=== PATIENT | male | born 1945 | race American Indian/Alaskan Native ===

== ENCOUNTER 2018-08-12 18:26 | Inpatient (IN) | payer MEDICARE, MEDICAID ==
[2018-08-12 19:20] LABS: HEMOGLOBIN 10.6 g/dL (12.0-18.0); MEAN CORPUSCULAR HEMOGLOBIN 21.2 pg (27.0-31.0); MEAN CORPUSCULAR HGB CONC 32.7 g/dL (33.0-37.0); MEAN PLATELET VOLUME 9.4 fL (7.2-11.7); RED CELL DISTRIBUTION WIDTH 18.7 % (11.5-14.5)
[2018-08-12 19:37] LABS: MEAN CELL VOLUME 64.9 fL (80.0-94.0)
[2018-08-12 19:38] LABS: WHITE BLOOD COUNT 19.3 K/uL (4.8-10.8)
--- NOTE | 2018-08-12 19:47 | C.PDOC ---
History Of Present Illness 73 year old male presents to the ED for evaluation of vomiting and diarrhea for one week. Patient also reports feeling winded for the past 1.5 weeks. He states he gets tired and needs to catch his breath even with walking small distances. For the past 6 days, patient has been experiencing weakness to his bilateral lower legs, having a hard time lifting them. Patient states his last episodes of vomiting and diarrhea were earlier this week and one week ago, respectively. He states his last meal was one week ago. PS "IM TAKING CANCER MEDICINE BUT I DON'T KNOW MY MEDS. DR LEVIN TAKES CARE OF ME" PS DOESNT KNOW SOURCE OF CANCER Additional history limited secondary to patient being a poor historian. Time Seen by Provider: 08/12/18 18:34 History Per: Patient History/Exam Limitations: no limitations Onset/Duration Of Symptoms: Days Current Symptoms Are (Timing): Still Present Past Medical History Reviewed: Historical Data, Nursing Documentation, Vital Signs Vital Signs: Last Vital Signs Temp 97.8 F 08/12/18 18:44 Pulse 95 H 08/12/18 18:44 Resp 18 08/12/18 18:44 BP 130/64 08/12/18 18:44 Pulse Ox 97 08/12/18 18:44 - Medical History PMH: Back Problems, Gastritis Surgical History: No Surg Hx Family History: States: Unknown Family Hx - Social History Hx Tobacco Use: No Hx Alcohol Use: No Hx Substance Use: No - Immunization History Hx Tetanus Toxoid Vaccination: No Hx Influenza Vaccination: No Hx Pneumococcal Vaccination: No Review Of Systems Respiratory: Positive for: Other (feeling winded ) Gastrointestinal: Positive for: Vomiting, Diarrhea Neurological: Positive for: Weakness (bilateral lower extremities ) Physical Exam - Physical Exam Appears: Non-toxic, No Acute Distress Skin: Normal Color, Warm, Dry Head: Atraumatic, Normacephalic Eye(s): bilateral: Normal Inspection Oral Mucosa: Dry Neck: Supple Chest: Symmetrical, No Deformity, No Tenderness Cardiovascular: Rhythm Regular, No Murmur Respiratory: Normal Breath Sounds, No Rales, No Rhonchi, No Wheezing Gastrointestinal/Abdominal: Soft, No Tenderness, No Guarding, No Rebound Extremity: Normal ROM, Capillary Refill (less than 2 seconds ) Neurological/Psych: Normal Motor (bilateral upper extremities ), Normal Sensation (bilateral upper extremities ), Other (alert and oriented x2. see NIH ) ED Course And Treatment - Laboratory Results Result Diagrams: 08/12/18 19:18 08/12/18 21:00 ECG: Interpreted By Me, Viewed By Me ECG Rhythm: Sinus Rhythm Rate From EC O2 Sat by Pulse Oximetry: 97 (on RA) Pulse Ox Interpretation: Normal - Radiology CXR: Interpreted by Me CXR Interpretation: Yes: No Acute Disease Progress Note: Bloodwork, urinalysis, CXR, EKG ordered and reviewed. Zosyn IV given. NIHSS Stroke Scale - Date/Time Evaluation Performed Date Performed: 08/12/18 Time Performed: 19:49 When Was NIHSS Performed: Baseline - How Severe is the Stroke Level of Consciousness: 0=Alert LOC to Questions: 0=Both comments correct LOC to commands: 0=Obeys both correctly Best Gaze: 0=Normal Visual: 0=No visual loss Facial: 0=Normal Motor Arm - Left: 0=No drift Motor Arm - Right: 0=No drift Motor Leg - Left: 2=Falls before 5 sec Motor Leg - Right: 2=Falls before 5 sec Limb Ataxia: 0=Absent Sensory: 0=Normal Best Language: 0=No aphasia Dysarthia: 0=Normal articulation Extinction & Inattention (Neglect): 0=Normal, no object Score: 4 Progress - Re-Evaluation Re-evaluation Note: 08/12/18 21:16 NO RECENT BUN/CREAT ON RECORD. HO CHRONIC KIDNEY DISEASE PER PRIOR RECORD VISITS. DEFER IVF BOLUS PER SEPSIS PROTOCOL PENDING BMP 08/12/18 21:57 S/P IVF, NO URINE OUTPUT SP STRAIGHT CATH. BLADDER SCAN <100 CC. PT APPEARS COMFORTABLE NARD 08/12/18 22:19 D/W DR FLEMING FOR ICU WILL EVAL IN ER 08/12/18 22:31 D/W Deni REILLY C/F PMD WILL ADMIT 08/12/18 22:34 D/W EX , STATES PT W HO PROSTATE CA, HEME/ONC DR LEVIN 08/12/18 22:53 ACCEPTS FOR ICU - Data Reviewed Data Reviewed: Lab, Diagnostic imaging, EKG, Old records rTPA Inclusion/Exclusion - Refusal of Treatment Patient Refused Treatment: No - Inclusion Criteria for Altepase Patient is 18 years or Older: Yes The Clinical Diagnosis of Ischemic Stroke That is Causing a Potentially Disabling Neurological Deficit: Yes Time of Onset is Well Established to be Less Than 270 Minute Before Treatment Would Begin: No Risk/Benefit Discussed With Patient/Family Member Present: No - Exclusion Criteria for Altepase Uncontrolled Hypertension at Time of Treatment (Systolic BP above 185 or Diastolic BP above 110 mmHg): No - Warning to TPA With Conditions Following Conditions Weighed Against Anticipated Benefit: Yes Condition: Care Team Unable to Determine Eligibilty Disposition Counseled Patient/Family Regarding: Studies Performed, Diagnosis - Disposition Disposition: HOSPITALIZED Disposition Time: 22:59 Condition: SERIOUS - POA Present On Arrival: None - Clinical Impression Clinical Impression: Acute renal failure, Altered mental state - Scribe Statement The provider has reviewed the documentation as recorded by the Scribe (Patti Reilly) Provider Attestation: All medical record entries made by the Scribe were at my direction and personally dictated by me. I have reviewed the chart and agree that the record accurately reflects my personal performance of the history, physical exam, medical decision making, and the department course for this patient. I have also personally directed, reviewed, and agree with the discharge instructions and disposition.
[2018-08-12 21:03] LABS: VENOUS BLOOD GAS BASE EXCESS -18.7 mmol/L (0.0-2.0); VENOUS BLOOD GAS PCO2 22 mmHg (40-60); VENOUS BLOOD GAS PO2 68 mm/Hg (30-55); VENOUS BLOOD PH 7.17 (7.32-7.43)
[2018-08-12 21:17] LABS: INR 1.4; PROTHROMBIN TIME 15.4 SECONDS (9.7-12.2)
[2018-08-12] MEDS ORDERED: Piperacillin/Tazobact 3.375 gm 100 ML IV STA (21:20)
[2018-08-12 21:25] LABS: ALBUMIN 3.5 g/dL (3.5-5.0); CALCIUM 7.2 mg/dl (8.6-10.4)
[2018-08-12] MEDS ORDERED: Piperacillin/Tazobact 3.375 gm 100 ML IVPB ONE (21:27)
--- NOTE | 2018-08-12 23:10 | CP.CCUPN ---
CCU Subjective - Physician Review Subjective (Free Text): 08/13/18 07:00 The Patient was seen and examined at the bedside, Medical records reviewed, and management issues were discussed and formulated with the house staff. Events reviewed 73 Years old Male with PMHx of Back Problems, Gastritis, Chronic Kidney Disease and Prostate cancer Who presents to the ED with complaint of vomiting and diarrhea for one week., Also has bilateral lower legs weakness, he denies any other complaints No fever/chills, no CP, SOB, DELANEY, cough In the ER his labs significant for acute kidney injury with hyperkalemia and profound metabolic acidosis. He received 1L normal saline, started on Bicarb drip and scheduled for Head CT scan. Pt is poor historian but denies using any nephrotoxic medications, including NSAIDS or diuretics. His PO intake is adequate. He denies nausea, vomiting, diarrhea, decreased urine output, hesitancy or urinary retention. CCU Objective - Vital Signs / Intake & Output Vital Signs (Last 4 hours): Vital Signs Temp Resp BP Pulse Ox 08/12/18 22:59 97 08/12/18 22:37 98 F 93 H 131/63 99 Intake and Output (Last 8hrs): Intake & Output 08/12/18 08/12/18 08/13/18 14:59 22:59 06:59 Weight 160 lb - Physical Exam Physical Exam Limitations: Positive for: Clinical Condition Head: Positive for: Atraumatic, Normocephalic Pupils: Positive for: PERRL Extroacular Muscles: Positive for: EOMI Conjunctiva: Positive for: Normal Mouth: Positive for: Dry Neck: Positive for: Normal Range of Motion, Trachea Midline. Negative for: Meningeal Signs, MIDLINE TENDERNESS, Paraspinal Tenderness, JVD, Lymphadenopathy, Bruit, Other Respiratory/Chest: Positive for: Clear to Auscultation, Good Air Exchange, Respiratory Distress. Negative for: Accessory Muscle Use Cardiovascular: Positive for: Regular Rate and Rhythm, Normal S1, S2, Peripheal Pulses Present. Negative for: Murmurs, Irregular Rhythm, Tachycardic, Bradycardic Abdomen: Positive for: Normal Bowel Sounds. Negative for: Tenderness, Distention, Peritoneal Signs Neurological: Positive for: GCS=15, CN II-XII Intact, Speech Normal, Motor Func Grossly Intact, Normal Sensory Function Psychiatric: Positive for: Alert, Oriented x 3 - Patient Studies Lab Studies: Lab Studies 08/12/18 08/12/18 08/12/18 Range/Units 21:00 20:59 20:55 WBC (4.8-10.8) K/uL RBC (4.40-5.90) Mil/uL Hgb (12.0-18.0) g/dL Hct (35.0-51.0) % MCV (80.0-94.0) fL MCH (27.0-31.0) pg MCHC (33.0-37.0) g/dL RDW (11.5-14.5) % Plt Count (130-400) K/uL MPV (7.2-11.7) fL PT 15.4 H (9.7-12.2) SECONDS INR 1.4 APTT 33 (21-34) SECONDS D-Dimer, Quantitative 2062 H (0-243) ng/mlDDU pO2 68 H (30-55) mm/Hg VBG pH 7.17 L* (7.32-7.43) VBG pCO2 22 L (40-60) mmHg VBG HCO3 10.1 mmol/L VBG Total CO2 8.7 L (22-28) mmol/L VBG O2 Sat (Calc) 93.1 H (40-65) % VBG Base Excess -18.7 L (0.0-2.0) mmol/L VBG Potassium 4.2 (3.6-5.2) mmol/L Sodium 135 134.0 (132-148) mmol/l Chloride 97 L 103.0 (98-107) mmol/L Glucose 120 H (75-110) mg/dl Lactate 2.2 H (0.7-2.1) mmol/L FiO2 21.0 % Crit Value Called To Dr maria Crit Value Called By [facility] Crit Value Read Back Y Blood Gas Notified Time 2102 Potassium 5.3 H (3.6-5.2) mmol/L Carbon Dioxide 7 L* (22-30) mmol/L Anion Gap 36 H (10-20) BUN 257 H* (9-20) mg/dL Creatinine 16.0 H* (0.8-1.5) mg/dL Est GFR ( Amer) 4 Est GFR (Non-Af Amer) 3 Random Glucose 150 H (75-110) mg/dL Calcium 7.2 L (8.6-10.4) mg/dl Phosphorus 12.9 H (2.5-4.5) mg/dL Magnesium 3.2 H (1.6-2.3) mg/dL Total Bilirubin 3.4 H (0.2-1.3) mg/dL AST 54 (17-59) U/L ALT 71 (21-72) U/L Alkaline Phosphatase 215 H (38-126) U/L NT-Pro-B Natriuret Pep 6410 H (0-900) pg/mL Total Protein 7.0 (6.3-8.3) g/dL Albumin 3.5 (3.5-5.0) g/dL Globulin 3.5 (2.2-3.9) gm/dL Albumin/Globulin Ratio 1.0 (1.0-2.1) Lipase 966 H (23-300) U/L Venous Blood Potassium 4.2 (3.6-5.2) mmol/L 08/12/18 Range/Units 19:18 WBC 19.3 H (4.8-10.8) K/uL RBC 5.00 (4.40-5.90) Mil/uL Hgb 10.6 L (12.0-18.0) g/dL Hct 32.4 L (35.0-51.0) % MCV 64.9 L (80.0-94.0) fL MCH 21.2 L (27.0-31.0) pg MCHC 32.7 L (33.0-37.0) g/dL RDW 18.7 H (11.5-14.5) % Plt Count 360 (130-400) K/uL MPV 9.4 (7.2-11.7) fL PT (9.7-12.2) SECONDS INR APTT (21-34) SECONDS D-Dimer, Quantitative (0-243) ng/mlDDU pO2 (30-55) mm/Hg VBG pH (7.32-7.43) VBG pCO2 (40-60) mmHg VBG HCO3 mmol/L VBG Total CO2 (22-28) mmol/L VBG O2 Sat (Calc) (40-65) % VBG Base Excess (0.0-2.0) mmol/L VBG Potassium (3.6-5.2) mmol/L Sodium (132-148) mmol/l Chloride (98-107) mmol/L Glucose (75-110) mg/dl Lactate (0.7-2.1) mmol/L FiO2 % Crit Value Called To Crit Value Called By Crit Value Read Back Blood Gas Notified Time Potassium (3.6-5.2) mmol/L Carbon Dioxide (22-30) mmol/L Anion Gap (10-20) BUN (9-20) mg/dL Creatinine (0.8-1.5) mg/dL Est GFR ( Amer) Est GFR (Non-Af Amer) Random Glucose (75-110) mg/dL Calcium (8.6-10.4) mg/dl Phosphorus (2.5-4.5) mg/dL Magnesium (1.6-2.3) mg/dL Total Bilirubin (0.2-1.3) mg/dL AST (17-59) U/L ALT (21-72) U/L Alkaline Phosphatase (38-126) U/L NT-Pro-B Natriuret Pep (0-900) pg/mL Total Protein (6.3-8.3) g/dL Albumin (3.5-5.0) g/dL Globulin (2.2-3.9) gm/dL Albumin/Globulin Ratio (1.0-2.1) Lipase (23-300) U/L Venous Blood Potassium (3.6-5.2) mmol/L Laboratory Results - last 24 hr 08/12/18 08/12/18 08/12/18 19:18 20:55 20:59 WBC 19.3 H RBC 5.00 Hgb 10.6 L Hct 32.4 L MCV 64.9 L MCH 21.2 L MCHC 32.7 L RDW 18.7 H Plt Count 360 MPV 9.4 PT 15.4 H INR 1.4 APTT 33 D-Dimer, Quantitative 2062 H pO2 68 H VBG pH 7.17 L* VBG pCO2 22 L VBG HCO3 10.1 VBG Total CO2 8.7 L VBG O2 Sat (Calc) 93.1 H VBG Base Excess -18.7 L VBG Potassium 4.2 Sodium 134.0 Chloride 103.0 Glucose 120 H Lactate 2.2 H FiO2 21.0 Crit Value Called To Dr maria Crit Value Called By [facility] Crit Value Read Back Y Blood Gas Notified Time 2102 Potassium Carbon Dioxide Anion Gap BUN Creatinine Est GFR ( Amer) Est GFR (Non-Af Amer) Random Glucose Calcium Phosphorus Magnesium Total Bilirubin AST ALT Alkaline Phosphatase NT-Pro-B Natriuret Pep Total Protein Albumin Globulin Albumin/Globulin Ratio Lipase Venous Blood Potassium 4.2 08/12/18 21:00 WBC RBC Hgb Hct MCV MCH MCHC RDW Plt Count MPV PT INR APTT D-Dimer, Quantitative pO2 VBG pH VBG pCO2 VBG HCO3 VBG Total CO2 VBG O2 Sat (Calc) VBG Base Excess VBG Potassium Sodium 135 Chloride 97 L Glucose Lactate FiO2 Crit Value Called To Crit Value Called By Crit Value Read Back Blood Gas Notified Time Potassium 5.3 H Carbon Dioxide 7 L* Anion Gap 36 H BUN 257 H* Creatinine 16.0 H* Est GFR ( Amer) 4 Est GFR (Non-Af Amer) 3 Random Glucose 150 H Calcium 7.2 L Phosphorus 12.9 H Magnesium 3.2 H Total Bilirubin 3.4 H AST 54 ALT 71 Alkaline Phosphatase 215 H NT-Pro-B Natriuret Pep 6410 H Total Protein 7.0 Albumin 3.5 Globulin 3.5 Albumin/Globulin Ratio 1.0 Lipase 966 H Venous Blood Potassium EKG/Cardiology Studies: Cardiology / EKG Studies 08/12/18 19:56 ELECTROCARDIOGRAM Stat Comment: Mode Of Transportation: BED Reason For Exam: [facility] 08/12/18 21:09 EKG [ELECTROCARDIOGRAM] Stat Comment: Mode Of Transportation: Reason For Exam: weakness Review of Systems - Cardiovascular Cardiovascular: absent: As Per HPI, Acrocyanosis, Chest Pain, Chest Pain at Rest, Chest Pain with Activity, Claudication, Diaphoresis, Dyspnea, Dyspnea on Exertion, Edema, Irregular Heart Rhythm, Pain Radiating to Arm/Neck/Jaw, Leg Edema, Leg Ulcers, Lightheadedness, Orthopnea, Palpitations, Paroxysmal Nocturnal Dyspnea, Pedal Edema, Radiating Pain, Rapid Heart Rate, Slow Heart Rate, Syncope, Other, UNREMARKABLE - Respiratory Respiratory: absent: As Per HPI, Cough, Dyspnea, Hemoptysis, Dyspnea on Exertion, Wheezing, Snoring, Stridor, Pain on Inspiration, Chest Congestion, Excessive Mucous Production, Change in Mucous Color, Pain with Coughing, Other, UNREMARKABLE Critical Care Progress Note - Extremities/Vascular Does the Patient have a Central Venous Catheter?: No Does the Patient need a Central Venous Catheter?: No Does the Patient have a Goss Catheter?: No Does the Patient need a Goss Catheter?: No Assessment/Plan (1) Acute renal failure Current Visit: Yes Status: Acute (2) Metabolic acidosis Current Visit: Yes Status: Acute Priority: High (3) Altered mental state Current Visit: Yes Status: Acute (4) Anemia Current Visit: Yes Status: Acute Priority: Medium (5) 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 Volume depletions, Physical examination consistent with hypovolemia and Dehydration Metabolic acidosis (anion gap) Hyperkalemia, EKG without peaked t-waves. AMS, likely from uremia, follow head CT scan Admit to the ICU Nephrology consult Frequent labs, HD if metabolic derangement not improving IVF hydration Bicard drip Off all nephrotoxic medications /NSAIDs Renally adjust medication dose Monitor Input/Output, daily weights Monitor renal function with basic metabolic panel Avoid fleets enema/magnesium based meds BP and Glycemic control GI/DVT PPX
[2018-08-12] MEDS ORDERED: DEXTROSE 5% IV SCH (23:15)
[2018-08-12] MEDS ORDERED: WATER IV SCH (23:15)
[2018-08-12] MEDS ORDERED: SODIUM BICARBONATE IV SCH (23:15)
[2018-08-13] MEDS: Sodium Bicarbonate 8.4% 150 MEQ in Dextrose 5% In Water 1,000 ML IV SCH ×2 (00:45→13:24)
[2018-08-13 05:27] LABS: URINE BACTERIA MOD (<OCC); URINE BILIRUBIN NEGATIVE (NEGATIVE); URINE BLOOD 2+ (NEGATIVE); URINE CLARITY Turbid (Clear); URINE COLOR Amber (YELLOW); URINE GLUCOSE (UA) NORMAL (Normal); URINE LEUKOCYTE ESTERASE 3+ Leu/uL (Negative); URINE PROTEIN 2+ mg/dL (NEGATIVE); URINE UROBILINOGEN NORMAL mg/dL (0.2-1.0); WBC CLUMPS MANY /hpf
[2018-08-13 06:22] LABS: MEAN CORPUSCULAR HEMOGLOBIN 21.5 pg (27.0-31.0); MEAN CORPUSCULAR HGB CONC 33.4 g/dL (33.0-37.0)
[2018-08-13 06:42] LABS: HEMOGLOBIN 9.7 g/dL (12.0-18.0); MEAN CELL VOLUME 64.3 fL (80.0-94.0); MEAN PLATELET VOLUME 10.1 fL (7.2-11.7); PLATELET COUNT 367 K/uL (130-400); RBC 4.52 Mil/uL (4.40-5.90); RED CELL DISTRIBUTION WIDTH 18.4 % (11.5-14.5); WHITE BLOOD COUNT 13.4 K/uL (4.8-10.8)
[2018-08-13 07:21] LABS: ALB/GLOB RATIO 0.9 (1.0-2.1); ALBUMIN 3.1 g/dL (3.5-5.0); CALCIUM 6.7 mg/dl (8.6-10.4)
--- NOTE | 2018-08-13 07:47 | CT ---
Date of service: 08/12/2018 PROCEDURE: CT HEAD WITHOUT CONTRAST. HISTORY: Altered mental status COMPARISON: None available. TECHNIQUE: Axial computed tomography images were obtained through the head/brain without intravenous contrast. Radiation dose: Total exam DLP = 1248.67 mGy-cm. This CT exam was performed using one or more of the following dose reduction techniques: Automated exposure control, adjustment of the mA and/or kV according to patient size, and/or use of iterative reconstruction technique. FINDINGS: HEMORRHAGE: No intracranial hemorrhage. BRAIN: No mass effect or edema. Scattered focal lucencies in the subcortical and periventricular white matter suggestive for chronic microvascular ischemic change. Punctate bilateral basal ganglia lacunar infarcts. VENTRICLES: Prominent. CALVARIUM: Unremarkable. PARANASAL SINUSES: Unremarkable as visualized. No significant inflammatory changes. MASTOID AIR CELLS: Unremarkable as visualized. No inflammatory changes. OTHER FINDINGS: None. IMPRESSION: Chronic microvascular ischemic changes. If symptoms persists, consider correlation with MRI. These findings were preliminarily reported at 12:33 a.m. on 08/13/[address] Mila Billy from [facility].
--- NOTE | 2018-08-13 08:20 | RAD ---
HISTORY: AMS COMPARISON: Chest x-ray performed 08/28/14 TECHNIQUE: Chest, one view. FINDINGS: LUNGS: No focal consolidation. Please note that chest x-ray has limited sensitivity for the detection of pulmonary masses. PLEURA: No significant pleural effusion identified. No definite pneumothorax . CARDIOVASCULAR: Heart size appears within normal limits. Atherosclerotic calcification present. OSSEOUS STRUCTURES: Degenerative changes. Chronic right 6th rib fracture deformity. VISUALIZED UPPER ABDOMEN: Unremarkable. OTHER FINDINGS: None. IMPRESSION: No focal consolidation identified.
--- NOTE | 2018-08-13 09:02 | CP.CCUPN ---
<Carisa De La Garza - Last Filed: 08/13/18 18:32> CCU Subjective - Physician Review Events Since Last Encounter (Free Text): 08/13/18 09:01 Patient was on bicarb drip over night. BUN and Creatinine remain elevated (no change from admission). Subjective (Free Text): 08/13/18 09:00 Patient was seen and examined this morning. He states he is feeling better. He still seems confused but is able to state where he is and why. He continues to have diarrhea. Patient's BUN and creatinine have not improved, and he will require dialysis today. Critical Care Time Spent (in minutes): 35 CCU Objective - Vital Signs / Intake & Output Vital Signs (Last 4 hours): Vital Signs Temp Pulse Resp BP Pulse Ox 08/13/18 08:20 89 20 99 08/13/18 08:12 96 H 19 125/62 98 08/13/18 08:10 104 H 20 100 08/13/18 08:00 98.6 F 94 H 19 98 08/13/18 07:50 90 21 99 08/13/18 07:40 93 H 22 98 08/13/18 07:30 90 24 98 08/13/18 07:20 87 20 98 08/13/18 07:11 87 17 141/61 100 08/13/18 07:10 86 18 98 08/13/18 07:00 89 20 98 Intake and Output (Last 8hrs): Intake & Output 08/12/18 08/13/18 08/13/18 22:59 06:59 14:59 Intake Total 500 310 Output Total 150 100 Balance 350 210 Weight 160 lb 152 lb 1.6 oz Intake: Intake, IV Amount 500 310 Left Forearm 500 300 Right Hand 10 Output: Urine 150 100 Urine, Voided 150 100 Other: # Voids Urine, Voided 1 - Physical Exam Head: Positive for: Atraumatic, Normocephalic Pupils: Positive for: PERRL Extroacular Muscles: Positive for: EOMI Conjunctiva: Positive for: Normal Mouth: Positive for: Dry Neck: Positive for: Normal Range of Motion, Trachea Midline. Negative for: Meningeal Signs, MIDLINE TENDERNESS, Paraspinal Tenderness, JVD, Lymphadenopathy, Bruit, Other Respiratory/Chest: Positive for: Clear to Auscultation, Good Air Exchange, Respiratory Distress. Negative for: Accessory Muscle Use Cardiovascular: Positive for: Regular Rate and Rhythm, Normal S1, S2, Peripheal Pulses Present. Negative for: Murmurs, Irregular Rhythm, Tachycardic, Bradycardic Abdomen: Positive for: Normal Bowel Sounds. Negative for: Tenderness, Distention, Peritoneal Signs Neurological: Positive for: GCS=15, CN II-XII Intact, Speech Normal, Motor Func Grossly Intact, Normal Sensory Function Psychiatric: Positive for: Alert, Oriented x 3 - Medications Active Medications: Active Medications Generic Name Dose Route Start Last Admin Trade Name Freq PRN Reason Stop Dose Admin Heparin Sodium (Porcine) 5,000 units 08/13/18 00:45 08/13/18 06:36 Heparin SC 5,000 units Q8 ALEC Administration Sodium Bicarbonate 150 meq/ 1,150 mls @ 100 mls/hr 08/13/18 00:45 08/13/18 00:45 Dextrose IV 100 mls/hr .[id number] ALEC Administration Pantoprazole Sodium 40 mg 08/13/18 10:00 Protonix Inj IVP DAILY ALEC - Patient Studies Lab Studies: Lab Studies 08/13/18 08/13/18 08/13/18 Range/Units 06:12 06:12 06:12 WBC 13.4 H (4.8-10.8) K/uL RBC 4.52 (4.40-5.90) Mil/uL Hgb 9.7 L (12.0-18.0) g/dL Hct 29.1 L (35.0-51.0) % MCV 64.3 L (80.0-94.0) fL MCH 21.5 L (27.0-31.0) pg MCHC 33.4 (33.0-37.0) g/dL RDW 18.4 H (11.5-14.5) % Plt Count 367 (130-400) K/uL MPV 10.1 (7.2-11.7) fL PT (9.7-12.2) SECONDS INR APTT 36 H (21-34) SECONDS D-Dimer, Quantitative (0-243) ng/mlDDU pO2 (30-55) mm/Hg VBG pH (7.32-7.43) VBG pCO2 (40-60) mmHg VBG HCO3 mmol/L VBG Total CO2 (22-28) mmol/L VBG O2 Sat (Calc) (40-65) % VBG Base Excess (0.0-2.0) mmol/L VBG Potassium (3.6-5.2) mmol/L Sodium 134 (132-148) mmol/l Chloride 96 L (98-107) mmol/L Glucose (75-110) mg/dl Lactate (0.7-2.1) mmol/L FiO2 % Crit Value Called To Crit Value Called By Crit Value Read Back Blood Gas Notified Time Potassium 5.1 (3.6-5.2) mmol/L Carbon Dioxide 10 L* D (22-30) mmol/L Anion Gap 33 H (10-20) BUN 266 H* (9-20) mg/dL Creatinine 16.1 H* (0.8-1.5) mg/dL Est GFR ( Amer) 4 Est GFR (Non-Af Amer) 3 Random Glucose 143 H (75-110) mg/dL Calcium 6.7 L (8.6-10.4) mg/dl Phosphorus 12.3 H (2.5-4.5) mg/dL Magnesium 3.3 H (1.6-2.3) mg/dL Total Bilirubin 3.4 H (0.2-1.3) mg/dL AST 59 (17-59) U/L ALT 69 (21-72) U/L Alkaline Phosphatase 211 H (38-126) U/L NT-Pro-B Natriuret Pep (0-900) pg/mL Total Protein 6.5 (6.3-8.3) g/dL Albumin 3.1 L (3.5-5.0) g/dL Globulin 3.4 (2.2-3.9) gm/dL Albumin/Globulin Ratio 0.9 L (1.0-2.1) Lipase (23-300) U/L Venous Blood Potassium (3.6-5.2) mmol/L Urine Color (YELLOW) Urine Clarity (Clear) Urine pH (5.0-8.0) Ur Specific Orange (1.003-1.030) Urine Protein (NEGATIVE) mg/dL Urine Glucose (UA) (Normal) mg/dL Urine Ketones (NEGATIVE) mg/dL Urine Blood (NEGATIVE) Urine Nitrate (NEGATIVE) Urine Bilirubin (NEGATIVE) Urine Urobilinogen (0.2-1.0) mg/dL Ur Leukocyte Esterase (Negative) Milla/uL Urine WBC (Auto) (0-5) /hpf Urine RBC (Auto) (0-3) /hpf Urine WBC Clumps (Auto) (NONE) /hpf Urine Bacteria (<OCC) Urine Yeast (Budding) (NEGATIVE) /hpf 08/13/18 08/12/18 08/12/18 Range/Units 05:18 21:00 20:59 WBC (4.8-10.8) K/uL RBC (4.40-5.90) Mil/uL Hgb (12.0-18.0) g/dL Hct (35.0-51.0) % MCV (80.0-94.0) fL MCH (27.0-31.0) pg MCHC (33.0-37.0) g/dL RDW (11.5-14.5) % Plt Count (130-400) K/uL MPV (7.2-11.7) fL PT 15.4 H (9.7-12.2) SECONDS INR 1.4 APTT 33 (21-34) SECONDS D-Dimer, Quantitative 2062 H (0-243) ng/mlDDU pO2 (30-55) mm/Hg VBG pH (7.32-7.43) VBG pCO2 (40-60) mmHg VBG HCO3 mmol/L VBG Total CO2 (22-28) mmol/L VBG O2 Sat (Calc) (40-65) % VBG Base Excess (0.0-2.0) mmol/L VBG Potassium (3.6-5.2) mmol/L Sodium 135 (132-148) mmol/l Chloride 97 L (98-107) mmol/L Glucose (75-110) mg/dl Lactate (0.7-2.1) mmol/L FiO2 % Crit Value Called To Crit Value Called By Crit Value Read Back Blood Gas Notified Time Potassium 5.3 H (3.6-5.2) mmol/L Carbon Dioxide 7 L* (22-30) mmol/L Anion Gap 36 H (10-20) BUN 257 H* (9-20) mg/dL Creatinine 16.0 H* (0.8-1.5) mg/dL Est GFR ( Amer) 4 Est GFR (Non-Af Amer) 3 Random Glucose 150 H (75-110) mg/dL Calcium 7.2 L (8.6-10.4) mg/dl Phosphorus 12.9 H (2.5-4.5) mg/dL Magnesium 3.2 H (1.6-2.3) mg/dL Total Bilirubin 3.4 H (0.2-1.3) mg/dL AST 54 (17-59) U/L ALT 71 (21-72) U/L Alkaline Phosphatase 215 H (38-126) U/L NT-Pro-B Natriuret Pep 6410 H (0-900) pg/mL Total Protein 7.0 (6.3-8.3) g/dL Albumin 3.5 (3.5-5.0) g/dL Globulin 3.5 (2.2-3.9) gm/dL Albumin/Globulin Ratio 1.0 (1.0-2.1) Lipase 966 H (23-300) U/L Venous Blood Potassium (3.6-5.2) mmol/L Urine Color Antoinette (YELLOW) Urine Clarity Turbid (Clear) Urine pH 5.0 (5.0-8.0) Ur Specific Orange 1.013 (1.003-1.030) Urine Protein 2+ H (NEGATIVE) mg/dL Urine Glucose (UA) Normal (Normal) mg/dL Urine Ketones Negative (NEGATIVE) mg/dL Urine Blood 2+ H (NEGATIVE) Urine Nitrate Negative (NEGATIVE) Urine Bilirubin Negative (NEGATIVE) Urine Urobilinogen Normal (0.2-1.0) mg/dL Ur Leukocyte Esterase 3+ H (Negative) Milla/uL Urine WBC (Auto) 2419 H (0-5) /hpf Urine RBC (Auto) 24 H (0-3) /hpf Urine WBC Clumps (Auto) Many H (NONE) /hpf Urine Bacteria Mod H (<OCC) Urine Yeast (Budding) Few H (NEGATIVE) /hpf 08/12/18 08/12/18 Range/Units 20:55 19:18 WBC 19.3 H (4.8-10.8) K/uL RBC 5.00 (4.40-5.90) Mil/uL Hgb 10.6 L (12.0-18.0) g/dL Hct 32.4 L (35.0-51.0) % MCV 64.9 L (80.0-94.0) fL MCH 21.2 L (27.0-31.0) pg MCHC 32.7 L (33.0-37.0) g/dL RDW 18.7 H (11.5-14.5) % Plt Count 360 (130-400) K/uL MPV 9.4 (7.2-11.7) fL PT (9.7-12.2) SECONDS INR APTT (21-34) SECONDS D-Dimer, Quantitative (0-243) ng/mlDDU pO2 68 H (30-55) mm/Hg VBG pH 7.17 L* (7.32-7.43) VBG pCO2 22 L (40-60) mmHg VBG HCO3 10.1 mmol/L VBG Total CO2 8.7 L (22-28) mmol/L VBG O2 Sat (Calc) 93.1 H (40-65) % VBG Base Excess -18.7 L (0.0-2.0) mmol/L VBG Potassium 4.2 (3.6-5.2) mmol/L Sodium 134.0 (132-148) mmol/l Chloride 103.0 (98-107) mmol/L Glucose 120 H (75-110) mg/dl Lactate 2.2 H (0.7-2.1) mmol/L FiO2 21.0 % Crit Value Called To Dr maria Crit Value Called By [facility] Crit Value Read Back Y Blood Gas Notified Time 2102 Potassium (3.6-5.2) mmol/L Carbon Dioxide (22-30) mmol/L Anion Gap (10-20) BUN (9-20) mg/dL Creatinine (0.8-1.5) mg/dL Est GFR ( Amer) Est GFR (Non-Af Amer) Random Glucose (75-110) mg/dL Calcium (8.6-10.4) mg/dl Phosphorus (2.5-4.5) mg/dL Magnesium (1.6-2.3) mg/dL Total Bilirubin (0.2-1.3) mg/dL AST (17-59) U/L ALT (21-72) U/L Alkaline Phosphatase (38-126) U/L NT-Pro-B Natriuret Pep (0-900) pg/mL Total Protein (6.3-8.3) g/dL Albumin (3.5-5.0) g/dL Globulin (2.2-3.9) gm/dL Albumin/Globulin Ratio (1.0-2.1) Lipase (23-300) U/L Venous Blood Potassium 4.2 (3.6-5.2) mmol/L Urine Color (YELLOW) Urine Clarity (Clear) Urine pH (5.0-8.0) Ur Specific Orange (1.003-1.030) Urine Protein (NEGATIVE) mg/dL Urine Glucose (UA) (Normal) mg/dL Urine Ketones (NEGATIVE) mg/dL Urine Blood (NEGATIVE) Urine Nitrate (NEGATIVE) Urine Bilirubin (NEGATIVE) Urine Urobilinogen (0.2-1.0) mg/dL Ur Leukocyte Esterase (Negative) Milla/uL Urine WBC (Auto) (0-5) /hpf Urine RBC (Auto) (0-3) /hpf Urine WBC Clumps (Auto) (NONE) /hpf Urine Bacteria (<OCC) Urine Yeast (Budding) (NEGATIVE) /hpf Laboratory Results - last 24 hr 08/12/18 08/12/18 08/12/18 19:18 20:55 20:59 WBC 19.3 H RBC 5.00 Hgb 10.6 L Hct 32.4 L MCV 64.9 L MCH 21.2 L MCHC 32.7 L RDW 18.7 H Plt Count 360 MPV 9.4 PT 15.4 H INR 1.4 APTT 33 D-Dimer, Quantitative 2061 H pO2 68 H VBG pH 7.17 L* VBG pCO2 22 L VBG HCO3 10.1 VBG Total CO2 8.7 L VBG O2 Sat (Calc) 93.1 H VBG Base Excess -18.7 L VBG Potassium 4.2 Sodium 134.0 Chloride 103.0 Glucose 120 H Lactate 2.2 H FiO2 21.0 Crit Value Called To Dr maria Crit Value Called By [facility] Crit Value Read Back Y Blood Gas Notified Time 2102 Potassium Carbon Dioxide Anion Gap BUN Creatinine Est GFR ( Amer) Est GFR (Non-Af Amer) Random Glucose Calcium Phosphorus Magnesium Total Bilirubin AST ALT Alkaline Phosphatase NT-Pro-B Natriuret Pep Total Protein Albumin Globulin Albumin/Globulin Ratio Lipase Venous Blood Potassium 4.2 Urine Color Urine Clarity Urine pH Ur Specific Orange Urine Protein Urine Glucose (UA) Urine Ketones Urine Blood Urine Nitrate Urine Bilirubin Urine Urobilinogen Ur Leukocyte Esterase Urine WBC (Auto) Urine RBC (Auto) Urine WBC Clumps (Auto) Urine Bacteria Urine Yeast (Budding) 08/12/18 08/13/18 08/13/18 21:00 05:18 06:12 WBC RBC Hgb Hct MCV MCH MCHC RDW Plt Count MPV PT INR APTT 36 H D-Dimer, Quantitative pO2 VBG pH VBG pCO2 VBG HCO3 VBG Total CO2 VBG O2 Sat (Calc) VBG Base Excess VBG Potassium Sodium 135 Chloride 97 L Glucose Lactate FiO2 Crit Value Called To Crit Value Called By Crit Value Read Back Blood Gas Notified Time Potassium 5.3 H Carbon Dioxide 7 L* Anion Gap 36 H BUN 257 H* Creatinine 16.0 H* Est GFR ( Amer) 4 Est GFR (Non-Af Amer) 3 Random Glucose 150 H Calcium 7.2 L Phosphorus 12.9 H Magnesium 3.2 H Total Bilirubin 3.4 H AST 54 ALT 71 Alkaline Phosphatase 215 H NT-Pro-B Natriuret Pep 6410 H Total Protein 7.0 Albumin 3.5 Globulin 3.5 Albumin/Globulin Ratio 1.0 Lipase 966 H Venous Blood Potassium Urine Color Antoinette Urine Clarity Turbid Urine pH 5.0 Ur Specific Orange 1.013 Urine Protein 2+ H Urine Glucose (UA) Normal Urine Ketones Negative Urine Blood 2+ H Urine Nitrate Negative Urine Bilirubin Negative Urine Urobilinogen Normal Ur Leukocyte Esterase 3+ H Urine WBC (Auto) 2419 H Urine RBC (Auto) 24 H Urine WBC Clumps (Auto) Many H Urine Bacteria Mod H Urine Yeast (Budding) Few H 08/13/18 08/13/18 06:12 06:12 WBC 13.4 H RBC 4.52 Hgb 9.7 L Hct 29.1 L MCV 64.3 L MCH 21.5 L MCHC 33.4 RDW 18.4 H Plt Count 367 MPV 10.1 PT INR APTT D-Dimer, Quantitative pO2 VBG pH VBG pCO2 VBG HCO3 VBG Total CO2 VBG O2 Sat (Calc) VBG Base Excess VBG Potassium Sodium 134 Chloride 96 L Glucose Lactate FiO2 Crit Value Called To Crit Value Called By Crit Value Read Back Blood Gas Notified Time Potassium 5.1 Carbon Dioxide 10 L* D Anion Gap 33 H BUN 266 H* Creatinine 16.1 H* Est GFR ( Amer) 4 Est GFR (Non-Af Amer) 3 Random Glucose 143 H Calcium 6.7 L Phosphorus 12.3 H Magnesium 3.3 H Total Bilirubin 3.4 H AST 59 ALT 69 Alkaline Phosphatase 211 H NT-Pro-B Natriuret Pep Total Protein 6.5 Albumin 3.1 L Globulin 3.4 Albumin/Globulin Ratio 0.9 L Lipase Venous Blood Potassium Urine Color Urine Clarity Urine pH Ur Specific Orange Urine Protein Urine Glucose (UA) Urine Ketones Urine Blood Urine Nitrate Urine Bilirubin Urine Urobilinogen Ur Leukocyte Esterase Urine WBC (Auto) Urine RBC (Auto) Urine WBC Clumps (Auto) Urine Bacteria Urine Yeast (Budding) EKG/Cardiology Studies: Cardiology / EKG Studies 08/12/18 19:56 ELECTROCARDIOGRAM Stat Comment: Mode Of Transportation: BED Reason For Exam: [facility] 08/12/18 21:09 EKG [ELECTROCARDIOGRAM] Stat Comment: Mode Of Transportation: Reason For Exam: weakness Results Reviewed to Date: Yes Review of Systems - Constitutional Constitutional: absent: Fever, Chills, Sweats - EENT Eyes: UNREMARKABLE. absent: Change in Vision Ears: UNREMARKABLE Nose/Mouth/Throat: UNREMARKABLE - Cardiovascular Cardiovascular: UNREMARKABLE. absent: Chest Pain - Respiratory Respiratory: UNREMARKABLE. absent: Cough, Dyspnea - Gastrointestinal Gastrointestinal: Diarrhea, Nausea. absent: Vomiting - Genitourinary Genitourinary: UNREMARKABLE. absent: Dysuria, Hematuria - Musculoskeletal Musculoskeletal: UNREMARKABLE - Integumentary Integumentary: UNREMARKABLE. absent: Lesions - Neurological Neurological: UNREMARKABLE - Psychiatric Psychiatric: UNREMARKABLE - Endocrine Endocrine: UNREMARKABLE - Hematologic/Lymphatic Hematologic: UNREMARKABLE Critical Care Progress Note - Extremities/Vascular Does the Patient have a Central Venous Catheter?: No Does the Patient need a Central Venous Catheter?: No Does the Patient have a Goss Catheter?: No Does the Patient need a Goss Catheter?: No - Prophylaxis GI Prophylaxis GI: PPI - Prophylaxis DVT Prophylaxis DVT: Heparin SQ - Nutrition Nutrition: Nutrition Category Date Time Status Renal Diet [DIET] Diets 08/13/18 Breakfast Active Assessment/Plan - Assessment and Plan (Free Text) Assessment: Patient is a 73 yo male with a history of prostate cancer and CKD who presented with nausea and vomiting x1 week. He was found to have an elevated BUN and creatinine. He was started on bicarb drip overnight without resolution. He will require hemodialysis today. Additionally, blood culture grew gram negative rods. Plan: Neuro: AMS- suspect uremia - CT head: no acute findings - Monitor mental status, no agitation CV: - BNP 6410 - Monitor vitals Pulm: - CXR: crowded bronchovascular markings and mild bibasilar atelectasis - Maintain spO2>92%- supplemental O2 PRN GI: Diarrhea - Stool O&P pending - Stool Cx pending - Hepatitis panel negative - Renal diet : Acute on chronic kidney disease- HD today, HD scheduled for tomorrow - R IJ Negrita placed 08/13 - On admission: BUN 257, Cr 16, K 5.3, bicarb 7 - Post HD: BUN 111, Cr 7.4, K 4, bicarb 24 - Bicarb discontinued - D5NS @ 100 mL/hr - Renally dose medications - Nephrology consulted (Yesi) Endo: - Maintain euglycemia Heme: Anemia - Hgb 9.7 - Monitor H&H ID: Bacteremia - Afebrile - Leukocytosis improving (19.3->13.4) - UA: LE 3+, neg nitrate, WBC 2419, mod bacteria - Urine Cx pending- pansensitive E. Coli last month - Blood Cx: GNR - Zosyn 2.25 g IV Q8H- started 08/12 - Meropenem 500 mg IV Q12H- started 08/13 - ID consulted (Kevin) PPx: VTE: Heparin 500 units SC Q8H GI: PTX 40 mg IV daily Code status: full code Case discussed with attending, Dr. Roberts. PGY-1 Carisa De La Garza D.O. <Ru Roberts - Last Filed: 08/13/18 18:36> CCU Objective - Vital Signs / Intake & Output Vital Signs (Last 4 hours): Vital Signs Temp Pulse Pulse Resp BP BP Pulse Ox 08/13/18 17:20 99 F 18 137/106 H 100 08/13/18 17:10 104 H 24 137/106 H 98 08/13/18 17:00 117 H 22 117/93 H 100 08/13/18 16:55 108 H 26 H 117/93 H 08/13/18 16:50 103 H 22 08/13/18 16:40 96 H 22 145/72 100 08/13/18 16:37 90 29 H 147/70 99 08/13/18 16:30 98 H 22 99 08/13/18 16:22 92 H 13 145/72 97 08/13/18 16:20 93 H 20 151/72 H 100 08/13/18 16:10 100 H 22 98 08/13/18 16:07 91 H 25 H 151/71 H 98 08/13/18 16:00 98 F 106 H 19 144/70 100 08/13/18 15:52 94 H 20 144/70 08/13/18 15:50 94 H 26 H 95 08/13/18 15:45 20 142/78 100 08/13/18 15:40 99 H 16 100 08/13/18 15:36 90 14 142/78 08/13/18 15:30 97 H 17 145/74 96 08/13/18 15:22 86 15 145/74 08/13/18 15:20 85 18 08/13/18 15:10 74 27 H 08/13/18 15:07 82 22 150/69 08/13/18 15:00 78 16 150/69 100 08/13/18 14:52 77 24 149/65 08/13/18 14:50 98 F 79 78 20 149/65 149/65 96 08/13/18 14:40 87 24 Intake and Output (Last 8hrs): Intake & Output 08/13/18 08/13/18 08/13/18 06:59 14:59 22:59 Intake Total 500 1230 1200 Output Total 150 220 120 Balance 350 1010 1080 Weight 152 lb 1.6 oz 152 lb 1.903 oz Intake: Intake, IV Amount 276 353 6058 Left Forearm 500 900 200 Right Hand 60 1000 Oral 270 Output: Urine 150 100 120 Urine, Voided 150 100 120 Stool 120 Other: # Voids Urine, Voided 0 1 # Bowel Movements 1 - Medications Active Medications: Active Medications Generic Name Dose Route Start Last Admin Trade Name Freq PRN Reason Stop Dose Admin Heparin Sodium (Porcine) 5,000 units 08/13/18 00:45 08/13/18 15:05 Heparin SC 5,000 units Q8 ALEC Administration Dextrose/Sodium Chloride 1,000 mls @ 100 mls/hr 08/13/18 17:30 08/13/18 17:39 Dextrose 5%/0.9% Ns 1000 Ml IV 100 mls/hr .Q10H ALEC Administration Meropenem 1 gm/ Sodium 100 mls @ 100 mls/hr 08/13/18 18:20 Chloride IVPB 08/13/18 19:19 ONCE ONE Protocol Meropenem 500 mg/ Sodium 100 mls @ 100 mls/hr 08/14/18 06:30 Chloride IVPB Q12H ALEC Protocol Pantoprazole Sodium 40 mg 08/13/18 10:00 08/13/18 09:25 Protonix Inj IVP 40 mg DAILY ALEC Administration - Patient Studies Lab Studies: Microbiology Studies 08/12/18 20:30 Blood Culture - Preliminary Blood Gram Negative Woo Gram Stain - Final Lab Studies 08/13/18 08/13/18 08/13/18 Range/Units 17:21 15:20 06:12 WBC (4.8-10.8) K/uL RBC (4.40-5.90) Mil/uL Hgb (12.0-18.0) g/dL Hct (35.0-51.0) % MCV (80.0-94.0) fL MCH (27.0-31.0) pg MCHC (33.0-37.0) g/dL RDW (11.5-14.5) % Plt Count (130-400) K/uL MPV (7.2-11.7) fL Neut % (Auto) (50.0-75.0) % Lymph % (Auto) (20.0-40.0) % Brooks % (Auto) (0.0-10.0) % Eos % (Auto) (0.0-4.0) % Baso % (Auto) (0.0-2.0) % Neut # (Auto) (1.8-7.0) K/uL Lymph # (Auto) (1.0-4.3) K/uL Brooks # (Auto) (0.0-0.8) K/uL Eos # (Auto) (0.0-0.7) K/uL Baso # (Auto) (0.0-0.2) K/uL Neutrophils % (Manual) (50-75) % Lymphocytes % (Manual) (20-40) % Monocytes % (Manual) (0-10) % Platelet Estimate (NORMAL) Hypochromasia (manual) Poikilocytosis (manual Anisocytosis (manual) Target Cells Tear Drop Cells Ovalocytes [place] Cells PT (9.7-12.2) SECONDS INR APTT (21-34) SECONDS D-Dimer, Quantitative (0-243) ng/mlDDU pO2 (30-55) mm/Hg VBG pH (7.32-7.43) VBG pCO2 (40-60) mmHg VBG HCO3 mmol/L VBG Total CO2 (22-28) mmol/L VBG O2 Sat (Calc) (40-65) % VBG Base Excess (0.0-2.0) mmol/L VBG Potassium (3.6-5.2) mmol/L Sodium 137 134 (132-148) mmol/l Chloride 95 L 96 L (98-107) mmol/L Glucose (75-110) mg/dl Lactate (0.7-2.1) mmol/L FiO2 % Crit Value Called To Crit Value Called By Crit Value Read Back Blood Gas Notified Time Potassium 4.0 5.1 (3.6-5.2) mmol/L Carbon Dioxide 24 10 L* D (22-30) mmol/L Anion Gap 23 H 33 H (10-20) BUN 111 H* D 266 H* (9-20) mg/dL Creatinine 7.4 H* D 16.1 H* (0.8-1.5) mg/dL Est GFR ( Amer) 9 4 Est GFR (Non-Af Amer) 7 3 Random Glucose 121 H 143 H (75-110) mg/dL Calcium 7.5 L 6.7 L (8.6-10.4) mg/dl Phosphorus 3.9 12.3 H (2.5-4.5) mg/dL Magnesium 2.4 H 3.3 H (1.6-2.3) mg/dL Total Bilirubin 4.1 H 3.4 H (0.2-1.3) mg/dL AST 86 H D 59 (17-59) U/L ALT 79 H 69 (21-72) U/L Alkaline Phosphatase 229 H 211 H (38-126) U/L NT-Pro-B Natriuret Pep (0-900) pg/mL Total Protein 7.0 6.5 (6.3-8.3) g/dL Albumin 3.2 L 3.1 L (3.5-5.0) g/dL Globulin 3.8 3.4 (2.2-3.9) gm/dL Albumin/Globulin Ratio 0.9 L 0.9 L (1.0-2.1) Lipase (23-300) U/L Venous Blood Potassium (3.6-5.2) mmol/L Urine Color (YELLOW) Urine Clarity (Clear) Urine pH (5.0-8.0) Ur Specific Orange (1.003-1.030) Urine Protein (NEGATIVE) mg/dL Urine Glucose (UA) (Normal) mg/dL Urine Ketones (NEGATIVE) mg/dL Urine Blood (NEGATIVE) Urine Nitrate (NEGATIVE) Urine Bilirubin (NEGATIVE) Urine Urobilinogen (0.2-1.0) mg/dL Ur Leukocyte Esterase (Negative) Milla/uL Urine WBC (Auto) (0-5) /hpf Urine RBC (Auto) (0-3) /hpf Urine WBC Clumps (Auto) (NONE) /hpf Urine Bacteria (<OCC) Urine Yeast (Budding) (NEGATIVE) /hpf Hep Bs Antigen Negative (NEGATIVE) Hep B Core IgM Ab Negative (NEGATIVE) Hepatitis C Antibody Negative (NEGATIVE) 08/13/18 08/13/18 08/13/18 Range/Units 06:12 06:12 05:18 WBC 13.4 H (4.8-10.8) K/uL RBC 4.52 (4.40-5.90) Mil/uL Hgb 9.7 L (12.0-18.0) g/dL Hct 29.1 L (35.0-51.0) % MCV 64.3 L (80.0-94.0) fL MCH 21.5 L (27.0-31.0) pg MCHC 33.4 (33.0-37.0) g/dL RDW 18.4 H (11.5-14.5) % Plt Count 367 (130-400) K/uL MPV 10.1 (7.2-11.7) fL Neut % (Auto) 97.0 H (50.0-75.0) % Lymph % (Auto) 2.0 L (20.0-40.0) % Brooks % (Auto) 1.0 (0.0-10.0) % Eos % (Auto) 0.0 (0.0-4.0) % Baso % (Auto) 0.0 (0.0-2.0) % Neut # (Auto) 13.0 H (1.8-7.0) K/uL Lymph # (Auto) 0.3 L (1.0-4.3) K/uL Brooks # (Auto) 0.1 (0.0-0.8) K/uL Eos # (Auto) 0.0 (0.0-0.7) K/uL Baso # (Auto) 0.0 (0.0-0.2) K/uL Neutrophils % (Manual) 95 H (50-75) % Lymphocytes % (Manual) 3 L (20-40) % Monocytes % (Manual) 2 (0-10) % Platelet Estimate Normal (NORMAL) Hypochromasia (manual) Slight Poikilocytosis (manual Slight Anisocytosis (manual) Slight Target Cells Slight Tear Drop Cells Slight Ovalocytes Slight [place] Cells Slight PT (9.7-12.2) SECONDS INR APTT 36 H (21-34) SECONDS D-Dimer, Quantitative (0-243) ng/mlDDU pO2 (30-55) mm/Hg VBG pH (7.32-7.43) VBG pCO2 (40-60) mmHg VBG HCO3 mmol/L VBG Total CO2 (22-28) mmol/L VBG O2 Sat (Calc) (40-65) % VBG Base Excess (0.0-2.0) mmol/L VBG Potassium (3.6-5.2) mmol/L Sodium (132-148) mmol/l Chloride (98-107) mmol/L Glucose (75-110) mg/dl Lactate (0.7-2.1) mmol/L FiO2 % Crit Value Called To Crit Value Called By Crit Value Read Back Blood Gas Notified Time Potassium (3.6-5.2) mmol/L Carbon Dioxide (22-30) mmol/L Anion Gap (10-20) BUN (9-20) mg/dL Creatinine (0.8-1.5) mg/dL Est GFR ( Amer) Est GFR (Non-Af Amer) Random Glucose (75-110) mg/dL Calcium (8.6-10.4) mg/dl Phosphorus (2.5-4.5) mg/dL Magnesium (1.6-2.3) mg/dL Total Bilirubin (0.2-1.3) mg/dL AST (17-59) U/L ALT (21-72) U/L Alkaline Phosphatase (38-126) U/L NT-Pro-B Natriuret Pep (0-900) pg/mL Total Protein (6.3-8.3) g/dL Albumin (3.5-5.0) g/dL Globulin (2.2-3.9) gm/dL Albumin/Globulin Ratio (1.0-2.1) Lipase (23-300) U/L Venous Blood Potassium (3.6-5.2) mmol/L Urine Color Antoinette (YELLOW) Urine Clarity Turbid (Clear) Urine pH 5.0 (5.0-8.0) Ur Specific Orange 1.013 (1.003-1.030) Urine Protein 2+ H (NEGATIVE) mg/dL Urine Glucose (UA) Normal (Normal) mg/dL Urine Ketones Negative (NEGATIVE) mg/dL Urine Blood 2+ H (NEGATIVE) Urine Nitrate Negative (NEGATIVE) Urine Bilirubin Negative (NEGATIVE) Urine Urobilinogen Normal (0.2-1.0) mg/dL Ur Leukocyte Esterase 3+ H (Negative) Milla/uL Urine WBC (Auto) 2419 H (0-5) /hpf Urine RBC (Auto) 24 H (0-3) /hpf Urine WBC Clumps (Auto) Many H (NONE) /hpf Urine Bacteria Mod H (<OCC) Urine Yeast (Budding) Few H (NEGATIVE) /hpf Hep Bs Antigen (NEGATIVE) Hep B Core IgM Ab (NEGATIVE) Hepatitis C Antibody (NEGATIVE) 08/12/18 08/12/18 08/12/18 Range/Units 21:00 20:59 20:55 WBC (4.8-10.8) K/uL RBC (4.40-5.90) Mil/uL Hgb (12.0-18.0) g/dL Hct (35.0-51.0) % MCV (80.0-94.0) fL MCH (27.0-31.0) pg MCHC (33.0-37.0) g/dL RDW (11.5-14.5) % Plt Count (130-400) K/uL MPV (7.2-11.7) fL Neut % (Auto) (50.0-75.0) % Lymph % (Auto) (20.0-40.0) % Brooks % (Auto) (0.0-10.0) % Eos % (Auto) (0.0-4.0) % Baso % (Auto) (0.0-2.0) % Neut # (Auto) (1.8-7.0) K/uL Lymph # (Auto) (1.0-4.3) K/uL Brooks # (Auto) (0.0-0.8) K/uL Eos # (Auto) (0.0-0.7) K/uL Baso # (Auto) (0.0-0.2) K/uL Neutrophils % (Manual) (50-75) % Lymphocytes % (Manual) (20-40) % Monocytes % (Manual) (0-10) % Platelet Estimate (NORMAL) Hypochromasia (manual) Poikilocytosis (manual Anisocytosis (manual) Target Cells Tear Drop Cells Ovalocytes Andrea Cells PT 15.4 H (9.7-12.2) SECONDS INR 1.4 APTT 33 (21-34) SECONDS D-Dimer, Quantitative 2062 H (0-243) ng/mlDDU pO2 68 H (30-55) mm/Hg VBG pH 7.17 L* (7.32-7.43) VBG pCO2 22 L (40-60) mmHg VBG HCO3 10.1 mmol/L VBG Total CO2 8.7 L (22-28) mmol/L VBG O2 Sat (Calc) 93.1 H (40-65) % VBG Base Excess -18.7 L (0.0-2.0) mmol/L VBG Potassium 4.2 (3.6-5.2) mmol/L Sodium 135 134.0 (132-148) mmol/l Chloride 97 L 103.0 (98-107) mmol/L Glucose 120 H (75-110) mg/dl Lactate 2.2 H (0.7-2.1) mmol/L FiO2 21.0 % Crit Value Called To Dr maria Crit Value Called By [facility] Crit Value Read Back Y Blood Gas Notified Time 2102 Potassium 5.3 H (3.6-5.2) mmol/L Carbon Dioxide 7 L* (22-30) mmol/L Anion Gap 36 H (10-20) BUN 257 H* (9-20) mg/dL Creatinine 16.0 H* (0.8-1.5) mg/dL Est GFR ( Amer) 4 Est GFR (Non-Af Amer) 3 Random Glucose 150 H (75-110) mg/dL Calcium 7.2 L (8.6-10.4) mg/dl Phosphorus 12.9 H (2.5-4.5) mg/dL Magnesium 3.2 H (1.6-2.3) mg/dL Total Bilirubin 3.4 H (0.2-1.3) mg/dL AST 54 (17-59) U/L ALT 71 (21-72) U/L Alkaline Phosphatase 215 H (38-126) U/L NT-Pro-B Natriuret Pep 6410 H (0-900) pg/mL Total Protein 7.0 (6.3-8.3) g/dL Albumin 3.5 (3.5-5.0) g/dL Globulin 3.5 (2.2-3.9) gm/dL Albumin/Globulin Ratio 1.0 (1.0-2.1) Lipase 966 H (23-300) U/L Venous Blood Potassium 4.2 (3.6-5.2) mmol/L Urine Color (YELLOW) Urine Clarity (Clear) Urine pH (5.0-8.0) Ur Specific Orange (1.003-1.030) Urine Protein (NEGATIVE) mg/dL Urine Glucose (UA) (Normal) mg/dL Urine Ketones (NEGATIVE) mg/dL Urine Blood (NEGATIVE) Urine Nitrate (NEGATIVE) Urine Bilirubin (NEGATIVE) Urine Urobilinogen (0.2-1.0) mg/dL Ur Leukocyte Esterase (Negative) Milla/uL Urine WBC (Auto) (0-5) /hpf Urine RBC (Auto) (0-3) /hpf Urine WBC Clumps (Auto) (NONE) /hpf Urine Bacteria (<OCC) Urine Yeast (Budding) (NEGATIVE) /hpf Hep Bs Antigen (NEGATIVE) Hep B Core IgM Ab (NEGATIVE) Hepatitis C Antibody (NEGATIVE) 08/12/18 Range/Units 19:18 WBC 19.3 H (4.8-10.8) K/uL RBC 5.00 (4.40-5.90) Mil/uL Hgb 10.6 L (12.0-18.0) g/dL Hct 32.4 L (35.0-51.0) % MCV 64.9 L (80.0-94.0) fL MCH 21.2 L (27.0-31.0) pg MCHC 32.7 L (33.0-37.0) g/dL RDW 18.7 H (11.5-14.5) % Plt Count 360 (130-400) K/uL MPV 9.4 (7.2-11.7) fL Neut % (Auto) (50.0-75.0) % Lymph % (Auto) (20.0-40.0) % [place] % (Auto) (0.0-10.0) % Eos % (Auto) (0.0-4.0) % Baso % (Auto) (0.0-2.0) % Neut # (Auto) (1.8-7.0) K/uL Lymph # (Auto) (1.0-4.3) K/uL [place] # (Auto) (0.0-0.8) K/uL Eos # (Auto) (0.0-0.7) K/uL Baso # (Auto) (0.0-0.2) K/uL Neutrophils % (Manual) (50-75) % Lymphocytes % (Manual) (20-40) % Monocytes % (Manual) (0-10) % Platelet Estimate (NORMAL) Hypochromasia (manual) Poikilocytosis (manual Anisocytosis (manual) Target Cells Tear Drop Cells Ovalocytes Andrea Cells PT (9.7-12.2) SECONDS INR APTT (21-34) SECONDS D-Dimer, Quantitative (0-243) ng/mlDDU pO2 (30-55) mm/Hg VBG pH (7.32-7.43) VBG pCO2 (40-60) mmHg VBG HCO3 mmol/L VBG Total CO2 (22-28) mmol/L VBG O2 Sat (Calc) (40-65) % VBG Base Excess (0.0-2.0) mmol/L VBG Potassium (3.6-5.2) mmol/L Sodium (132-148) mmol/l Chloride (98-107) mmol/L Glucose (75-110) mg/dl Lactate (0.7-2.1) mmol/L FiO2 % Crit Value Called To Crit Value Called By Crit Value Read Back Blood Gas Notified Time Potassium (3.6-5.2) mmol/L Carbon Dioxide (22-30) mmol/L Anion Gap (10-20) BUN (9-20) mg/dL Creatinine (0.8-1.5) mg/dL Est GFR ( Amer) Est GFR (Non-Af Amer) Random Glucose (75-110) mg/dL Calcium (8.6-10.4) mg/dl Phosphorus (2.5-4.5) mg/dL Magnesium (1.6-2.3) mg/dL Total Bilirubin (0.2-1.3) mg/dL AST (17-59) U/L ALT (21-72) U/L Alkaline Phosphatase (38-126) U/L NT-Pro-B Natriuret Pep (0-900) pg/mL Total Protein (6.3-8.3) g/dL Albumin (3.5-5.0) g/dL Globulin (2.2-3.9) gm/dL Albumin/Globulin Ratio (1.0-2.1) Lipase (23-300) U/L Venous Blood Potassium (3.6-5.2) mmol/L Urine Color (YELLOW) Urine Clarity (Clear) Urine pH (5.0-8.0) Ur Specific Orange (1.003-1.030) Urine Protein (NEGATIVE) mg/dL Urine Glucose (UA) (Normal) mg/dL Urine Ketones (NEGATIVE) mg/dL Urine Blood (NEGATIVE) Urine Nitrate (NEGATIVE) Urine Bilirubin (NEGATIVE) Urine Urobilinogen (0.2-1.0) mg/dL Ur Leukocyte Esterase (Negative) Milla/uL Urine WBC (Auto) (0-5) /hpf Urine RBC (Auto) (0-3) /hpf Urine WBC Clumps (Auto) (NONE) /hpf Urine Bacteria (<OCC) Urine Yeast (Budding) (NEGATIVE) /hpf Hep Bs Antigen (NEGATIVE) Hep B Core IgM Ab (NEGATIVE) Hepatitis C Antibody (NEGATIVE) Laboratory Results - last 24 hr 08/12/18 08/12/18 08/12/18 19:18 20:55 20:59 WBC 19.3 H RBC 5.00 Hgb 10.6 L Hct 32.4 L MCV 64.9 L MCH 21.2 L MCHC 32.7 L RDW 18.7 H Plt Count 360 MPV 9.4 Neut % (Auto) Lymph % (Auto) [place] % (Auto) Eos % (Auto) Baso % (Auto) Neut # (Auto) Lymph # (Auto) [place] # (Auto) Eos # (Auto) Baso # (Auto) Neutrophils % (Manual) Lymphocytes % (Manual) Monocytes % (Manual) Platelet Estimate Hypochromasia (manual) Poikilocytosis (manual Anisocytosis (manual) Target Cells Tear Drop Cells Ovalocytes [place] Cells PT 15.4 H INR 1.4 APTT 33 D-Dimer, Quantitative 2061 H pO2 68 H VBG pH 7.17 L* VBG pCO2 22 L VBG HCO3 10.1 VBG Total CO2 8.7 L VBG O2 Sat (Calc) 93.1 H VBG Base Excess -18.7 L VBG Potassium 4.2 Sodium 134.0 Chloride 103.0 Glucose 120 H Lactate 2.2 H FiO2 21.0 Crit Value Called To Dr maria Crit Value Called By [facility] Crit Value Read Back Y Blood Gas Notified Time 2102 Potassium Carbon Dioxide Anion Gap BUN Creatinine Est GFR ( Amer) Est GFR (Non-Af Amer) Random Glucose Calcium Phosphorus Magnesium Total Bilirubin AST ALT Alkaline Phosphatase NT-Pro-B Natriuret Pep Total Protein Albumin Globulin Albumin/Globulin Ratio Lipase Venous Blood Potassium 4.2 Urine Color Urine Clarity Urine pH Ur Specific [place] Urine Protein Urine Glucose (UA) Urine Ketones Urine Blood Urine Nitrate Urine Bilirubin Urine Urobilinogen Ur Leukocyte Esterase Urine WBC (Auto) Urine RBC (Auto) Urine WBC Clumps (Auto) Urine Bacteria Urine Yeast (Budding) Hep Bs Antigen Hep B Core IgM Ab Hepatitis C Antibody 08/12/18 08/13/18 08/13/18 21:00 05:18 06:12 WBC RBC Hgb Hct MCV MCH MCHC RDW Plt Count MPV Neut % (Auto) Lymph % (Auto) [place] % (Auto) Eos % (Auto) Baso % (Auto) Neut # (Auto) Lymph # (Auto) [place] # (Auto) Eos # (Auto) Baso # (Auto) Neutrophils % (Manual) Lymphocytes % (Manual) Monocytes % (Manual) Platelet Estimate Hypochromasia (manual) Poikilocytosis (manual Anisocytosis (manual) Target Cells Tear Drop Cells Ovalocytes [place] Cells PT INR APTT 36 H D-Dimer, Quantitative pO2 VBG pH VBG pCO2 VBG HCO3 VBG Total CO2 VBG O2 Sat (Calc) VBG Base Excess VBG Potassium Sodium 135 Chloride 97 L Glucose Lactate FiO2 Crit Value Called To Crit Value Called By Crit Value Read Back Blood Gas Notified Time Potassium 5.3 H Carbon Dioxide 7 L* Anion Gap 36 H BUN 257 H* Creatinine 16.0 H* Est GFR ( Amer) 4 Est GFR (Non-Af Amer) 3 Random Glucose 150 H Calcium 7.2 L Phosphorus 12.9 H Magnesium 3.2 H Total Bilirubin 3.4 H AST 54 ALT 71 Alkaline Phosphatase 215 H NT-Pro-B Natriuret Pep 6410 H Total Protein 7.0 Albumin 3.5 Globulin 3.5 Albumin/Globulin Ratio 1.0 Lipase 966 H Venous Blood Potassium Urine Color Antoinette Urine Clarity Turbid Urine pH 5.0 Ur Specific Orange 1.013 Urine Protein 2+ H Urine Glucose (UA) Normal Urine Ketones Negative Urine Blood 2+ H Urine Nitrate Negative Urine Bilirubin Negative Urine Urobilinogen Normal Ur Leukocyte Esterase 3+ H Urine WBC (Auto) 2419 H Urine RBC (Auto) 24 H Urine WBC Clumps (Auto) Many H Urine Bacteria Mod H Urine Yeast (Budding) Few H Hep Bs Antigen Hep B Core IgM Ab Hepatitis C Antibody 08/13/18 08/13/18 08/13/18 06:12 06:12 15:20 WBC 13.4 H RBC 4.52 Hgb 9.7 L Hct 29.1 L MCV 64.3 L MCH 21.5 L MCHC 33.4 RDW 18.4 H Plt Count 367 MPV 10.1 Neut % (Auto) 97.0 H Lymph % (Auto) 2.0 L [place] % (Auto) 1.0 Eos % (Auto) 0.0 Baso % (Auto) 0.0 Neut # (Auto) 13.0 H Lymph # (Auto) 0.3 L [place] # (Auto) 0.1 Eos # (Auto) 0.0 Baso # (Auto) 0.0 Neutrophils % (Manual) 95 H Lymphocytes % (Manual) 3 L Monocytes % (Manual) 2 Platelet Estimate Normal Hypochromasia (manual) Slight Poikilocytosis (manual Slight Anisocytosis (manual) Slight Target Cells Slight Tear Drop Cells Slight Ovalocytes Slight [place] Cells Slight PT INR APTT D-Dimer, Quantitative pO2 VBG pH VBG pCO2 VBG HCO3 VBG Total CO2 VBG O2 Sat (Calc) VBG Base Excess VBG Potassium Sodium 134 Chloride 96 L Glucose Lactate FiO2 Crit Value Called To Crit Value Called By Crit Value Read Back Blood Gas Notified Time Potassium 5.1 Carbon Dioxide 10 L* D Anion Gap 33 H BUN 266 H* Creatinine 16.1 H* Est GFR ( Amer) 4 Est GFR (Non-Af Amer) 3 Random Glucose 143 H Calcium 6.7 L Phosphorus 12.3 H Magnesium 3.3 H Total Bilirubin 3.4 H AST 59 ALT 69 Alkaline Phosphatase 211 H NT-Pro-B Natriuret Pep Total Protein 6.5 Albumin 3.1 L Globulin 3.4 Albumin/Globulin Ratio 0.9 L Lipase Venous Blood Potassium Urine Color Urine Clarity Urine pH Ur Specific Orange Urine Protein Urine Glucose (UA) Urine Ketones Urine Blood Urine Nitrate Urine Bilirubin Urine Urobilinogen Ur Leukocyte Esterase Urine WBC (Auto) Urine RBC (Auto) Urine WBC Clumps (Auto) Urine Bacteria Urine Yeast (Budding) Hep Bs Antigen Negative Hep B Core IgM Ab Negative Hepatitis C Antibody Negative 08/13/18 17:21 WBC RBC Hgb Hct MCV MCH MCHC RDW Plt Count MPV Neut % (Auto) Lymph % (Auto) [place] % (Auto) Eos % (Auto) Baso % (Auto) Neut # (Auto) Lymph # (Auto) Brooks # (Auto) Eos # (Auto) Baso # (Auto) Neutrophils % (Manual) Lymphocytes % (Manual) Monocytes % (Manual) Platelet Estimate Hypochromasia (manual) Poikilocytosis (manual Anisocytosis (manual) Target Cells Tear Drop Cells Ovalocytes Andrea Cells PT INR APTT D-Dimer, Quantitative pO2 VBG pH VBG pCO2 VBG HCO3 VBG Total CO2 VBG O2 Sat (Calc) VBG Base Excess VBG Potassium Sodium 137 Chloride 95 L Glucose Lactate FiO2 Crit Value Called To Crit Value Called By Crit Value Read Back Blood Gas Notified Time Potassium 4.0 Carbon Dioxide 24 Anion Gap 23 H BUN 111 H* D Creatinine 7.4 H* D Est GFR ( Amer) 9 Est GFR (Non-Af Amer) 7 Random Glucose 121 H Calcium 7.5 L Phosphorus 3.9 Magnesium 2.4 H Total Bilirubin 4.1 H AST 86 H D ALT 79 H Alkaline Phosphatase 229 H NT-Pro-B Natriuret Pep Total Protein 7.0 Albumin 3.2 L Globulin 3.8 Albumin/Globulin Ratio 0.9 L Lipase Venous Blood Potassium Urine Color Urine Clarity Urine pH Ur Specific Orange Urine Protein Urine Glucose (UA) Urine Ketones Urine Blood Urine Nitrate Urine Bilirubin Urine Urobilinogen Ur Leukocyte Esterase Urine WBC (Auto) Urine RBC (Auto) Urine WBC Clumps (Auto) Urine Bacteria Urine Yeast (Budding) Hep Bs Antigen Hep B Core IgM Ab Hepatitis C Antibody EKG/Cardiology Studies: Cardiology / EKG Studies 08/12/18 19:56 ELECTROCARDIOGRAM Stat Comment: Mode Of Transportation: BED Reason For Exam: AMS 08/12/18 21:09 EKG [ELECTROCARDIOGRAM] Stat Comment: Mode Of Transportation: Reason For Exam: weakness Critical Care Progress Note - Nutrition Nutrition: Nutrition Category Date Time Status Renal Diet [DIET] Diets 08/13/18 Breakfast Active Attending/Attestation - Attestation I have personally seen and examined this patient.: Yes I have fully participated in the care of the patient.: Yes I have reviewed all pertinent clinical information: Yes Notes (Text): 08/13/18 18:34 I have seen and examined the patient. Medical records, lab studies, and imaging were reviewed by me and a management plan was formulated on multidisciplinary rounds with resident Dr. De La Garza. I agree with their documented assessment and plan. Patient was most likely pre-renal leading to ATN with uremia. Patient received dialysis catheter placement and urgent dialysis. Mental status is improved but not back to baseline. BUN/Cr also improved s/p dialysis, will continue to monitor. Critical Care Time 35 minutes. Multi-disciplinary rounds were performed with house staff, nursing, speech therapy, respiratory therapy, pharmacy and nutrition with integrated input from the primary team/attending and other consulting services. The documented time is cumulative and includes review of patient data/exams/labs/chart review and examination of the patient on rounds and throughout the day; time is exclusive of any procedures or teaching time.
[2018-08-13 09:27] LABS: LYMPH # 0.3 K/uL (1.0-4.3); MONO # 0.1 K/uL (0.0-0.8)
[2018-08-13 09:30] LABS: LYMPHOCYTE 3 % (20-40); MONOCYTE 2 % (0-10); NEUTROPHIL 95 % (50-75); TOTAL CELLS COUNTED 100
[2018-08-13 09:31] LABS: ANISOCYTOSIS SLIGHT; BURR CELLS SLIGHT; HYPOCHROMIC SLIGHT; OVALOCYTES SLIGHT; PLATELET ESTIMATE NORMAL (NORMAL); POIKILOCYTOSIS SLIGHT; TEARDROP CELLS SLIGHT
[2018-08-13 09:32] LABS: TARGET CELLS SLIGHT
[2018-08-13] MEDS: Piperacill/Tazo 2.25gm in Dex 2.25 GM/50 ML BAG IVPB SCH ×3 (10:46→17:16)
[2018-08-13] MEDS ORDERED: Sodium Chloride 0.9% 1,000 ML IV ONE (14:10)
--- NOTE | 2018-08-13 15:16 | RAD ---
Date of service: 08/13/2018 HISTORY: R IJ catheter COMPARISON: No prior. FINDINGS: Interval placement right IJ catheter with tip in the SVC/RA junction. LUNGS: Poor inspiration with low lung volumes, crowded bronchovascular markings and mild bibasilar atelectasis. PLEURA: No significant pleural effusion identified, no pneumothorax apparent. CARDIOVASCULAR: Mild-moderate aortic atherosclerotic calcification present. Normal cardiac size. No pulmonary vascular congestion. OSSEOUS STRUCTURES: Old fracture deformity right posterolateral 6th rib unchanged VISUALIZED UPPER ABDOMEN: Normal. OTHER FINDINGS: None. IMPRESSION: Interval placement right IJ catheter with tip in the SVC/RA junction. Poor inspiration with low lung volumes, crowded bronchovascular markings and mild bibasilar atelectasis. No evidence of pneumothorax
--- NOTE | 2018-08-13 15:27 | CP.PCM.HP ---
Past Patient History - Past Medical History & Family History Past Medical History?: Yes - Past Social History Smoking Status: Never Smoked - MUSCULOSKELETAL/RHEUMATOLOGICAL Hx Falls: No (denies) - GASTROINTESTINAL Hx Gastritis: Yes - GENITOURINARY/GYNECOLOGICAL Hx Prostate Cancer: Yes (per ER record) - PSYCHIATRIC Hx Substance Use: No Meds Allergies/Adverse Reactions: Allergies Allergy/AdvReac Type Severity Reaction Status Date / Time No Known Allergies Allergy Verified 04/20/14 15:54 Physical Exam - Constitutional Appears: Well - Head Exam Head Exam: ATRAUMATIC, NORMAL INSPECTION, NORMOCEPHALIC - Eye Exam Eye Exam: EOMI, Normal appearance, PERRL Pupil Exam: NORMAL ACCOMODATION, PERRL - ENT Exam ENT Exam: Mucous Membranes Moist, Normal Exam - Neck Exam Neck exam: Positive for: Normal Inspection - Respiratory Exam Respiratory Exam: Decreased Breath Sounds - Cardiovascular Exam Cardiovascular Exam: REGULAR RHYTHM, +S1, +S2 - GI/Abdominal Exam GI & Abdominal Exam: Diminished Bowel Sounds, Soft - Rectal Exam Rectal Exam: Deferred Results - Vital Signs Recent Vital Signs: Last Vital Signs Temp 98.5 F 08/13/18 12:00 Pulse 77 08/13/18 14:00 Resp 21 08/13/18 14:00 BP 138/62 08/13/18 13:11 Pulse Ox 98 08/13/18 14:00 - Labs Result Diagrams: 08/13/18 06:12 08/13/18 06:12 Labs: Laboratory Results - last 24 hr 08/12/18 08/12/18 08/12/18 19:18 20:55 20:59 WBC 19.3 H RBC 5.00 Hgb 10.6 L Hct 32.4 L MCV 64.9 L MCH 21.2 L MCHC 32.7 L RDW 18.7 H Plt Count 360 MPV 9.4 Neut % (Auto) Lymph % (Auto) [place] % (Auto) Eos % (Auto) Baso % (Auto) Neut # (Auto) Lymph # (Auto) [place] # (Auto) Eos # (Auto) Baso # (Auto) Neutrophils % (Manual) Lymphocytes % (Manual) Monocytes % (Manual) Platelet Estimate Hypochromasia (manual) Poikilocytosis (manual Anisocytosis (manual) Target Cells Tear Drop Cells Ovalocytes [place] Cells PT 15.4 H INR 1.4 APTT 33 D-Dimer, Quantitative 2061 H pO2 68 H VBG pH 7.17 L* VBG pCO2 22 L VBG HCO3 10.1 VBG Total CO2 8.7 L VBG O2 Sat (Calc) 93.1 H VBG Base Excess -18.7 L VBG Potassium 4.2 Sodium 134.0 Chloride 103.0 Glucose 120 H Lactate 2.2 H FiO2 21.0 Crit Value Called To Dr maria Crit Value Called By [facility] Crit Value Read Back Y Blood Gas Notified Time 2102 Potassium Carbon Dioxide Anion Gap BUN Creatinine Est GFR ( Amer) Est GFR (Non-Af Amer) Random Glucose Calcium Phosphorus Magnesium Total Bilirubin AST ALT Alkaline Phosphatase NT-Pro-B Natriuret Pep Total Protein Albumin Globulin Albumin/Globulin Ratio Lipase Venous Blood Potassium 4.2 Urine Color Urine Clarity Urine pH Ur Specific [place] Urine Protein Urine Glucose (UA) Urine Ketones Urine Blood Urine Nitrate Urine Bilirubin Urine Urobilinogen Ur Leukocyte Esterase Urine WBC (Auto) Urine RBC (Auto) Urine WBC Clumps (Auto) Urine Bacteria Urine Yeast (Budding) 08/12/18 08/13/18 08/13/18 21:00 05:18 06:12 WBC RBC Hgb Hct MCV MCH MCHC RDW Plt Count MPV Neut % (Auto) Lymph % (Auto) [place] % (Auto) Eos % (Auto) Baso % (Auto) Neut # (Auto) Lymph # (Auto) [place] # (Auto) Eos # (Auto) Baso # (Auto) Neutrophils % (Manual) Lymphocytes % (Manual) Monocytes % (Manual) Platelet Estimate Hypochromasia (manual) Poikilocytosis (manual Anisocytosis (manual) Target Cells Tear Drop Cells Ovalocytes [place] Cells PT INR APTT 36 H D-Dimer, Quantitative pO2 VBG pH VBG pCO2 VBG HCO3 VBG Total CO2 VBG O2 Sat (Calc) VBG Base Excess VBG Potassium Sodium 135 Chloride 97 L Glucose Lactate FiO2 Crit Value Called To Crit Value Called By Crit Value Read Back Blood Gas Notified Time Potassium 5.3 H Carbon Dioxide 7 L* Anion Gap 36 H BUN 257 H* Creatinine 16.0 H* Est GFR ( Amer) 4 Est GFR (Non-Af Amer) 3 Random Glucose 150 H Calcium 7.2 L Phosphorus 12.9 H Magnesium 3.2 H Total Bilirubin 3.4 H AST 54 ALT 71 Alkaline Phosphatase 215 H NT-Pro-B Natriuret Pep 6410 H Total Protein 7.0 Albumin 3.5 Globulin 3.5 Albumin/Globulin Ratio 1.0 Lipase 966 H Venous Blood Potassium Urine Color Antoinette Urine Clarity Turbid Urine pH 5.0 Ur Specific [place] 1.013 Urine Protein 2+ H Urine Glucose (UA) Normal Urine Ketones Negative Urine Blood 2+ H Urine Nitrate Negative Urine Bilirubin Negative Urine Urobilinogen Normal Ur Leukocyte Esterase 3+ H Urine WBC (Auto) 2419 H Urine RBC (Auto) 24 H Urine WBC Clumps (Auto) Many H Urine Bacteria Mod H Urine Yeast (Budding) Few H 08/13/18 08/13/18 06:12 06:12 WBC 13.4 H RBC 4.52 Hgb 9.7 L Hct 29.1 L MCV 64.3 L MCH 21.5 L MCHC 33.4 RDW 18.4 H Plt Count 367 MPV 10.1 Neut % (Auto) 97.0 H Lymph % (Auto) 2.0 L [place] % (Auto) 1.0 Eos % (Auto) 0.0 Baso % (Auto) 0.0 Neut # (Auto) 13.0 H Lymph # (Auto) 0.3 L [place] # (Auto) 0.1 Eos # (Auto) 0.0 Baso # (Auto) 0.0 Neutrophils % (Manual) 95 H Lymphocytes % (Manual) 3 L Monocytes % (Manual) 2 Platelet Estimate Normal Hypochromasia (manual) Slight Poikilocytosis (manual Slight Anisocytosis (manual) Slight Target Cells Slight Tear Drop Cells Slight Ovalocytes Slight [place] Cells Slight PT INR APTT D-Dimer, Quantitative pO2 VBG pH VBG pCO2 VBG HCO3 VBG Total CO2 VBG O2 Sat (Calc) VBG Base Excess VBG Potassium Sodium 134 Chloride 96 L Glucose Lactate FiO2 Crit Value Called To Crit Value Called By Crit Value Read Back Blood Gas Notified Time Potassium 5.1 Carbon Dioxide 10 L* D Anion Gap 33 H BUN 266 H* Creatinine 16.1 H* Est GFR ( Amer) 4 Est GFR (Non-Af Amer) 3 Random Glucose 143 H Calcium 6.7 L Phosphorus 12.3 H Magnesium 3.3 H Total Bilirubin 3.4 H AST 59 ALT 69 Alkaline Phosphatase 211 H NT-Pro-B Natriuret Pep Total Protein 6.5 Albumin 3.1 L Globulin 3.4 Albumin/Globulin Ratio 0.9 L Lipase Venous Blood Potassium Urine Color Urine Clarity Urine pH Ur Specific [place] Urine Protein Urine Glucose (UA) Urine Ketones Urine Blood Urine Nitrate Urine Bilirubin Urine Urobilinogen Ur Leukocyte Esterase Urine WBC (Auto) Urine RBC (Auto) Urine WBC Clumps (Auto) Urine Bacteria Urine Yeast (Budding)
[2018-08-13 16:44] LABS: HEPATITIS B SURFACE AG Negative (NEGATIVE)
[2018-08-13 16:49] LABS: HEPATITIS B CORE AB NEGATIVE (NEGATIVE)
[2018-08-13 17:01] LABS: HEPATITIS C ANTIBODY NEGATIVE (NEGATIVE)
--- NOTE | 2018-08-13 17:04 | CP.PCM.CON ---
History of Present Illness - History of Present Illness History of Present Illness: 73 yo AA male with pmh/o htn, obstructive uropathy, prostate ca, on treatment for about 2 yrs , his base line s.cr is about 2-2.5 few weeks ago was admitted with cc/o nausea, vomitngs, diarrhrea, mostly watery as per pt's daughters. as per pt's family he ate fish about 2 weeks ago and after 1-2 days later he developed severe watery diarrhea, no blood , no fever, no cough. as per family pt is very weak, sob , refused to come to hospital and shaking for few days. pt also has decreased uop ? cloudy urine. slight confusion for few days. renal consult is requested for evaluation of very high bun/cr >200/16 for possible hemodialysis Review of Systems - Review of Systems Review of Systems: diarrhea, shaking, decreased uop, cloudy urine - Constitutional Constitutional: As Per HPI - EENT Eyes: As Per HPI Ears: As Per HPI Nose/Mouth/Throat: As Per HPI - Cardiovascular Cardiovascular: As Per HPI - Respiratory Respiratory: As Per HPI - Gastrointestinal Gastrointestinal: As Per HPI - Genitourinary Genitourinary: As Per HPI, Dysuria Additional comments: decreased uop - Integumentary Integumentary: As Per HPI - Neurological Neurological: As Per HPI, Weakness - Psychiatric Psychiatric: As Per HPI - Endocrine Endocrine: As Per HPI - Hematologic/Lymphatic Hematologic: As Per HPI Past Patient History - Past Medical History & Family History Past Medical History?: Yes - Past Social History Smoking Status: Never Smoked - CARDIAC Hx Hypertension: Yes - RENAL Hx Chronic Kidney Disease: Yes - MUSCULOSKELETAL/RHEUMATOLOGICAL Hx Falls: No (denies) - GASTROINTESTINAL Hx Gastritis: Yes - GENITOURINARY/GYNECOLOGICAL Hx Prostate Cancer: Yes (per ER record) Hx Urinary Tract Infection: Yes - PSYCHIATRIC Hx Substance Use: No Meds Allergies/Adverse Reactions: Allergies Allergy/AdvReac Type Severity Reaction Status Date / Time No Known Allergies Allergy Verified 04/20/14 15:54 - Medications Medications: Current Medications Heparin Sodium (Porcine) (Heparin) 5,000 units SC Q8 [facility] Last Admin: 08/13/18 15:05 Dose: 5,000 units Sodium Bicarbonate 150 meq/ (Dextrose) 1,150 mls @ 100 mls/hr IV .[id number] [facility] Last Admin: 08/13/18 13:24 Dose: 100 mls/hr Piperacillin Sod/Tazobactam Sod (Zosyn 2.25 Gm Iv Premix) 2.25 gm in 50 mls @ 100 mls/hr IVPB Q8 [facility]; Protocol Last Admin: 08/13/18 14:00 Dose: Not Given Pantoprazole Sodium (Protonix Inj) 40 mg IVP DAILY [facility] Last Admin: 08/13/18 09:25 Dose: 40 mg Physical Exam - Constitutional Appears: Well, Toxic, Confused - Head Exam Head Exam: ATRAUMATIC, NORMAL INSPECTION, NORMOCEPHALIC - Eye Exam Eye Exam: EOMI, Normal appearance, PERRL Pupil Exam: NORMAL ACCOMODATION, PERRL - ENT Exam ENT Exam: Mucous Membranes Moist, Normal Exam - Neck Exam Neck exam: Positive for: Normal Inspection - Respiratory Exam Respiratory Exam: Clear to Auscultation Bilateral, NORMAL BREATHING PATTERN - Cardiovascular Exam Cardiovascular Exam: REGULAR RHYTHM, +S1, +S2 - GI/Abdominal Exam GI & Abdominal Exam: Normal Bowel Sounds, Soft. absent: Tenderness - Rectal Exam Rectal Exam: NORMAL INSPECTION - Exam Exam: NORMAL INSPECTION External exam: NORMAL EXTERNAL EXAM - Extremities Exam Extremities exam: Positive for: normal inspection Additional comments: no edema - Back Exam Back exam: NORMAL INSPECTION - Neurological Exam Neurological exam: Alert, CN II-XII Intact, Normal Gait, Reflexes Normal Additional comments: oriented x1-2 - Psychiatric Exam Psychiatric exam: Normal Affect, Normal Mood - Skin Skin Exam: Dry, Intact, Normal Color, Warm Results - Vital Signs Recent Vital Signs: Last Vital Signs Temp 98 F 08/13/18 14:50 Pulse 78 08/13/18 14:50 Resp 20 08/13/18 15:45 BP 142/78 08/13/18 15:45 Pulse Ox 100 08/13/18 15:45 - Labs Result Diagrams: 08/13/18 06:12 08/13/18 17:21 Labs: Laboratory Results - last 24 hr 08/12/18 08/12/18 08/12/18 19:18 20:55 20:59 WBC 19.3 H RBC 5.00 Hgb 10.6 L Hct 32.4 L MCV 64.9 L MCH 21.2 L MCHC 32.7 L RDW 18.7 H Plt Count 360 MPV 9.4 Neut % (Auto) Lymph % (Auto) [place] % (Auto) Eos % (Auto) Baso % (Auto) Neut # (Auto) Lymph # (Auto) [place] # (Auto) Eos # (Auto) Baso # (Auto) Neutrophils % (Manual) Lymphocytes % (Manual) Monocytes % (Manual) Platelet Estimate Hypochromasia (manual) Poikilocytosis (manual Anisocytosis (manual) Target Cells Tear Drop Cells Ovalocytes [place] Cells PT 15.4 H INR 1.4 APTT 33 D-Dimer, Quantitative 2061 H pO2 68 H VBG pH 7.17 L* VBG pCO2 22 L VBG HCO3 10.1 VBG Total CO2 8.7 L VBG O2 Sat (Calc) 93.1 H VBG Base Excess -18.7 L VBG Potassium 4.2 Sodium 134.0 Chloride 103.0 Glucose 120 H Lactate 2.2 H FiO2 21.0 Crit Value Called To Dr maria Crit Value Called By [facility] Crit Value Read Back Y Blood Gas Notified Time 2102 Potassium Carbon Dioxide Anion Gap BUN Creatinine Est GFR ( Amer) Est GFR (Non-Af Amer) Random Glucose Calcium Phosphorus Magnesium Total Bilirubin AST ALT Alkaline Phosphatase NT-Pro-B Natriuret Pep Total Protein Albumin Globulin Albumin/Globulin Ratio Lipase Venous Blood Potassium 4.2 Urine Color Urine Clarity Urine pH Ur Specific [place] Urine Protein Urine Glucose (UA) Urine Ketones Urine Blood Urine Nitrate Urine Bilirubin Urine Urobilinogen Ur Leukocyte Esterase Urine WBC (Auto) Urine RBC (Auto) Urine WBC Clumps (Auto) Urine Bacteria Urine Yeast (Budding) Hep Bs Antigen Hep B Core IgM Ab Hepatitis C Antibody 08/12/18 08/13/18 08/13/18 21:00 05:18 06:12 WBC RBC Hgb Hct MCV MCH MCHC RDW Plt Count MPV Neut % (Auto) Lymph % (Auto) [place] % (Auto) Eos % (Auto) Baso % (Auto) Neut # (Auto) Lymph # (Auto) [place] # (Auto) Eos # (Auto) Baso # (Auto) Neutrophils % (Manual) Lymphocytes % (Manual) Monocytes % (Manual) Platelet Estimate Hypochromasia (manual) Poikilocytosis (manual Anisocytosis (manual) Target Cells Tear Drop Cells Ovalocytes [place] Cells PT INR APTT 36 H D-Dimer, Quantitative pO2 VBG pH VBG pCO2 VBG HCO3 VBG Total CO2 VBG O2 Sat (Calc) VBG Base Excess VBG Potassium Sodium 135 Chloride 97 L Glucose Lactate FiO2 Crit Value Called To Crit Value Called By Crit Value Read Back Blood Gas Notified Time Potassium 5.3 H Carbon Dioxide 7 L* Anion Gap 36 H BUN 257 H* Creatinine 16.0 H* Est GFR ( Amer) 4 Est GFR (Non-Af Amer) 3 Random Glucose 150 H Calcium 7.2 L Phosphorus 12.9 H Magnesium 3.2 H Total Bilirubin 3.4 H AST 54 ALT 71 Alkaline Phosphatase 215 H NT-Pro-B Natriuret Pep 6410 H Total Protein 7.0 Albumin 3.5 Globulin 3.5 Albumin/Globulin Ratio 1.0 Lipase 966 H Venous Blood Potassium Urine Color [place] Urine Clarity Turbid Urine pH 5.0 Ur Specific [place] 1.013 Urine Protein 2+ H Urine Glucose (UA) Normal Urine Ketones Negative Urine Blood 2+ H Urine Nitrate Negative Urine Bilirubin Negative Urine Urobilinogen Normal Ur Leukocyte Esterase 3+ H Urine WBC (Auto) 2419 H Urine RBC (Auto) 24 H Urine WBC Clumps (Auto) Many H Urine Bacteria Mod H Urine Yeast (Budding) Few H Hep Bs Antigen Hep B Core IgM Ab Hepatitis C Antibody 08/13/18 08/13/18 08/13/18 06:12 06:12 15:20 WBC 13.4 H RBC 4.52 Hgb 9.7 L Hct 29.1 L MCV 64.3 L MCH 21.5 L MCHC 33.4 RDW 18.4 H Plt Count 367 MPV 10.1 Neut % (Auto) 97.0 H Lymph % (Auto) 2.0 L [place] % (Auto) 1.0 Eos % (Auto) 0.0 Baso % (Auto) 0.0 Neut # (Auto) 13.0 H Lymph # (Auto) 0.3 L [place] # (Auto) 0.1 Eos # (Auto) 0.0 Baso # (Auto) 0.0 Neutrophils % (Manual) 95 H Lymphocytes % (Manual) 3 L Monocytes % (Manual) 2 Platelet Estimate Normal Hypochromasia (manual) Slight Poikilocytosis (manual Slight Anisocytosis (manual) Slight Target Cells Slight Tear Drop Cells Slight Ovalocytes Slight [place] Cells Slight PT INR APTT D-Dimer, Quantitative pO2 VBG pH VBG pCO2 VBG HCO3 VBG Total CO2 VBG O2 Sat (Calc) VBG Base Excess VBG Potassium Sodium 134 Chloride 96 L Glucose Lactate FiO2 Crit Value Called To Crit Value Called By Crit Value Read Back Blood Gas Notified Time Potassium 5.1 Carbon Dioxide 10 L* D Anion Gap 33 H BUN 266 H* Creatinine 16.1 H* Est GFR ( Amer) 4 Est GFR (Non-Af Amer) 3 Random Glucose 143 H Calcium 6.7 L Phosphorus 12.3 H Magnesium 3.3 H Total Bilirubin 3.4 H AST 59 ALT 69 Alkaline Phosphatase 211 H NT-Pro-B Natriuret Pep Total Protein 6.5 Albumin 3.1 L Globulin 3.4 Albumin/Globulin Ratio 0.9 L Lipase Venous Blood Potassium Urine Color Urine Clarity Urine pH Ur Specific [place] Urine Protein Urine Glucose (UA) Urine Ketones Urine Blood Urine Nitrate Urine Bilirubin Urine Urobilinogen Ur Leukocyte Esterase Urine WBC (Auto) Urine RBC (Auto) Urine WBC Clumps (Auto) Urine Bacteria Urine Yeast (Budding) Hep Bs Antigen Negative Hep B Core IgM Ab Negative Hepatitis C Antibody Negative - Imaging and Cardiology Chest x-ray Status: Report reviewed by me CT scan - head Status: Report reviewed by me Assessment & Plan - Assessment and Plan (Free Text) Assessment: 73 to AA male with pmh/o htn, prostate cA, ckd-3, ? UTI with diarrhea x 2 weeks, weakness, shaking, decreased uop, difficulty to ambulate vert high bun/cr, confusion, low bicarb, high wbc now blood c/s + ve for GNR urine analysis c/w uti 1. GRAYSON on ckd-3 2. Gram negative sepsis, most likely source is urine, 3. high anaion gap met. acidosis 4. R/o uremic encephalopathy s/p rt ij cath placement pt is being dialyzed c/w iv abx check urine c/s ID consult with Dr. Brown d/w icu attending and icu resident in rounds d/w pt's daughters at bed side for HD again in am change ivf to D5NS at 100 ml/hr
[2018-08-13] MEDS: Dextrose 5%/0.9% NS 1,000 ML IV SCH (17:39)
[2018-08-13 18:02] LABS: ALB/GLOB RATIO 0.9 (1.0-2.1); ALBUMIN 3.2 g/dL (3.5-5.0); CALCIUM 7.5 mg/dl (8.6-10.4)
--- NOTE | 2018-08-13 18:14 | CP.PCM.CON ---
History of Present Illness - History of Present Illness History of Present Illness: 73 yo AA male was admitted with c/o nausea, vomitngs, diarrhrea, mostly watery as per pt's daughters. Initially patient refused to come to hospital Recently became more ill- consed with decreased urine output, shaking chills and diarrhea Referreed for ID eval for Positive blood cultures PMH obstructive uropathy, prostate ca ( on treatment ) CKD IV SH- - ETOH - IVDA FH- N/C NKDA Review of Systems - Review of Systems All systems: reviewed and no additional remarkable complaints except - Constitutional Constitutional: As Per HPI, Chills, Daytime Sleepiness, Fever - EENT Eyes: absent: As Per HPI, Blind Spots, Blurred Vision, Change in Vision, Decreased Night Vision, Diplopia, Discharge, Dry Eye, Exophthalmos, Floaters, Irritation, Itchy Eyes, Loss of Peripheral Vision, Pain, Photophobia, Requires Corrective Lenses, Sees Flashes, Spots in Vision, Tunnel Vision, Other Visual Disturbances, Loss of Vision, Other Ears: absent: As Per HPI, Decreased Hearing, Ear Discharge, Ear Pain, Tinnitus, Abnormal Hearing, Disequilibrium, Dizziness, Other Nose/Mouth/Throat: absent: As Per HPI, Epistaxis, Nasal Congestion, Nasal Discharge, Nasal Obstruction, Nasal Trauma, Nose Pain, Post Nasal Drip, Sinus Pain, Sinus Pressure, Bleeding Gums, Change in Voice, Dental Pain, Dry Mouth, Dysphagia, Halitosis, Hoarsness, Lip Swelling, Mouth Lesions, Mouth Pain, Odynophagia, Sore Throat, Throat Swelling, Tongue Swelling, Facial Pain, Neck Pain, Neck Mass, Other - Cardiovascular Cardiovascular: absent: As Per HPI, Acrocyanosis, Chest Pain, Chest Pain at Rest, Chest Pain with Activity, Claudication, Diaphoresis, Dyspnea, Dyspnea on Exertion, Edema, Irregular Heart Rhythm, Pain Radiating to Arm/Neck/Jaw, Leg Edema, Leg Ulcers, Lightheadedness, Orthopnea, Palpitations, Paroxysmal No cturnal Dyspnea, Pedal Edema, Radiating Pain, Rapid Heart Rate, Slow Heart Rate, Syncope, Other - Respiratory Respiratory: absent: As Per HPI, Cough, Dyspnea, Hemoptysis, Dyspnea on Exertion, Wheezing, Snoring, Stridor, Pain on Inspiration, Chest Congestion, Ex cessive Mucous Production, Change in Mucous Color, Pain with Coughing, Other - Gastrointestinal Gastrointestinal: As Per HPI, Diarrhea - Genitourinary Genitourinary: As Per HPI, Change in Urinary Stream, Difficulty Urinating - Musculoskeletal Musculoskeletal: absent: As Per HPI, Abnormal Gait, Arthralgias, Atrophy, Back Pain, Deformity, Joint Swelling, Limited Range of Motion, Loss of Height, Muscle Cramps, Muscle Weakness, Myalgias, Neck Pain, Numbness, Radiating Pain into Limb , Stiffness, Tingling, Other - Integumentary Integumentary: absent: As Per HPI, Acne, Alopecia, Bleeding Lesions, Change in Hair, Change in Nails, Change in Pigmentation, Changing Lesions, Dry Skin, Erythema, Furuncle, Hirsutism, Lesions, New Lesions, Non-Healing Lesions, Photosensitivity, Pruritus, Rash, Skin Pain, Skin Ulcer, Sores, Striae, Swelling, Unusual Bruising, Wounds, Jaundice, Other - Neurological Neurological: As Per HPI - Psychiatric Psychiatric: absent: As Per HPI, Abnormal Sleep Pattern, Anhedonia, Anxiety, Auditory Hallucinations, Behavioral Changes, Change in Appetite, Change in Libido, Confusion, Depression, Difficulty Concentrating, Hallucinations, Homicid al Ideation, Hopelessness, Irritability, Memory Loss, Mood Swings, Panic Attacks, Paranoia, Suicidal Ideation, Visual Hallucinations, Tactile Hallucinations, Other - Endocrine Endocrine: absent: As Per HPI, Change in Body Appearance, Change in Libido, Cold Intolorance, Deepening of Voice, Excessive Sweating, Fatigue, Flushing, Heat Intolorance, Increase in Ring/Shoe/Hat Size, Palpitations, Polydipsia, Polyphagia, Polyuria, Other - Hematologic/Lymphatic Hematologic: absent: As Per HPI, Easy Bleeding, Easy Bruising, Lymphadenopathy, Other Past Patient History - Past Medical History & Family History Past Medical History?: Yes - Past Social History Smoking Status: Never Smoked - CARDIAC Hx Hypertension: Yes - RENAL Hx Chronic Kidney Disease: Yes - MUSCULOSKELETAL/RHEUMATOLOGICAL Hx Falls: No (denies) - GASTROINTESTINAL Hx Gastritis: Yes - GENITOURINARY/GYNECOLOGICAL Hx Prostate Cancer: Yes (per ER record) Hx Urinary Tract Infection: Yes - PSYCHIATRIC Hx Substance Use: No Meds Allergies/Adverse Reactions: Allergies Allergy/AdvReac Type Severity Reaction Status Date / Time No Known Allergies Allergy Verified 04/20/14 15:54 - Medications Medications: Current Medications Heparin Sodium (Porcine) (Heparin) 5,000 units SC Q8 [facility] Last Admin: 08/13/18 15:05 Dose: 5,000 units Piperacillin Sod/Tazobactam Sod (Zosyn 2.25 Gm Iv Premix) 2.25 gm in 50 mls @ 100 mls/hr IVPB Q8 [facility]; Protocol Last Admin: 08/13/18 17:16 Dose: 100 mls/hr Dextrose/Sodium Chloride (Dextrose 5%/0.9% Ns 1000 Ml) 1,000 mls @ 100 mls/hr IV .Q10H [facility] Last Admin: 08/13/18 17:39 Dose: 100 mls/hr Pantoprazole Sodium (Protonix Inj) 40 mg IVP DAILY [facility] Last Admin: 08/13/18 09:25 Dose: 40 mg Physical Exam - Constitutional Appears: Confused, Cachectic, Chronically Ill - Head Exam Head Exam: ATRAUMATIC, NORMAL INSPECTION, NORMOCEPHALIC - Eye Exam Eye Exam: EOMI, PERRL Pupil Exam: absent: NORMAL ACCOMODATION - ENT Exam ENT Exam: Mucous Membranes Dry, Normal External Ear Exam - Neck Exam Neck exam: Negative for: Lymphadenopathy - Respiratory Exam Respiratory Exam: Decreased Breath Sounds, Prolonged Expiratory Phase, Rhonchi - Cardiovascular Exam Cardiovascular Exam: REGULAR RHYTHM, +S1, +S2 - GI/Abdominal Exam GI & Abdominal Exam: Diminished Bowel Sounds, Distended, Soft. absent: Guarding, Rebound, Rigid, Tenderness - Rectal Exam Rectal Exam: Deferred - Exam Exam: NORMAL INSPECTION, Scrotal Swelling. absent: Testicular Tenderness, Uretheral Discharge - Extremities Exam Extremities exam: Positive for: pedal edema - Back Exam Back exam: absent: CVA tenderness (L), CVA tenderness (R) - Neurological Exam Neurological exam: Alert, Altered, CN II-XII Intact - Psychiatric Exam Psychiatric exam: Depressed - Skin Skin Exam: Dry Results - Vital Signs Recent Vital Signs: Last Vital Signs Temp 99 F 08/13/18 17:20 Pulse 104 H 08/13/18 17:10 Resp 18 08/13/18 17:20 BP 137/106 H 08/13/18 17:20 Pulse Ox 100 08/13/18 17:20 - Labs Result Diagrams: 08/13/18 06:12 08/13/18 17:21 Labs: Laboratory Results - last 24 hr 08/12/18 08/12/18 08/12/18 19:18 20:55 20:59 WBC 19.3 H RBC 5.00 Hgb 10.6 L Hct 32.4 L MCV 64.9 L MCH 21.2 L MCHC 32.7 L RDW 18.7 H Plt Count 360 MPV 9.4 Neut % (Auto) Lymph % (Auto) [place] % (Auto) Eos % (Auto) Baso % (Auto) Neut # (Auto) Lymph # (Auto) [place] # (Auto) Eos # (Auto) Baso # (Auto) Neutrophils % (Manual) Lymphocytes % (Manual) Monocytes % (Manual) Platelet Estimate Hypochromasia (manual) Poikilocytosis (manual Anisocytosis (manual) Target Cells Tear Drop Cells Ovalocytes [place] Cells PT 15.4 H INR 1.4 APTT 33 D-Dimer, Quantitative 2061 H pO2 68 H VBG pH 7.17 L* VBG pCO2 22 L VBG HCO3 10.1 VBG Total CO2 8.7 L VBG O2 Sat (Calc) 93.1 H VBG Base Excess -18.7 L VBG Potassium 4.2 Sodium 134.0 Chloride 103.0 Glucose 120 H Lactate 2.2 H FiO2 21.0 Crit Value Called To Dr maria Crit Value Called By [facility] Crit Value Read Back Y Blood Gas Notified Time 2102 Potassium Carbon Dioxide Anion Gap BUN Creatinine Est GFR ( Amer) Est GFR (Non-Af Amer) Random Glucose Calcium Phosphorus Magnesium Total Bilirubin AST ALT Alkaline Phosphatase NT-Pro-B Natriuret Pep Total Protein Albumin Globulin Albumin/Globulin Ratio Lipase Venous Blood Potassium 4.2 Urine Color Urine Clarity Urine pH Ur Specific [place] Urine Protein Urine Glucose (UA) Urine Ketones Urine Blood Urine Nitrate Urine Bilirubin Urine Urobilinogen Ur Leukocyte Esterase Urine WBC (Auto) Urine RBC (Auto) Urine WBC Clumps (Auto) Urine Bacteria Urine Yeast (Budding) Hep Bs Antigen Hep B Core IgM Ab Hepatitis C Antibody 08/12/18 08/13/18 08/13/18 21:00 05:18 06:12 WBC RBC Hgb Hct MCV MCH MCHC RDW Plt Count MPV Neut % (Auto) Lymph % (Auto) [place] % (Auto) Eos % (Auto) Baso % (Auto) Neut # (Auto) Lymph # (Auto) [place] # (Auto) Eos # (Auto) Baso # (Auto) Neutrophils % (Manual) Lymphocytes % (Manual) Monocytes % (Manual) Platelet Estimate Hypochromasia (manual) Poikilocytosis (manual Anisocytosis (manual) Target Cells Tear Drop Cells Ovalocytes [place] Cells PT INR APTT 36 H D-Dimer, Quantitative pO2 VBG pH VBG pCO2 VBG HCO3 VBG Total CO2 VBG O2 Sat (Calc) VBG Base Excess VBG Potassium Sodium 135 Chloride 97 L Glucose Lactate FiO2 Crit Value Called To Crit Value Called By Crit Value Read Back Blood Gas Notified Time Potassium 5.3 H Carbon Dioxide 7 L* Anion Gap 36 H BUN 257 H* Creatinine 16.0 H* Est GFR ( Amer) 4 Est GFR (Non-Af Amer) 3 Random Glucose 150 H Calcium 7.2 L Phosphorus 12.9 H Magnesium 3.2 H Total Bilirubin 3.4 H AST 54 ALT 71 Alkaline Phosphatase 215 H NT-Pro-B Natriuret Pep 6410 H Total Protein 7.0 Albumin 3.5 Globulin 3.5 Albumin/Globulin Ratio 1.0 Lipase 966 H Venous Blood Potassium Urine Color [place] Urine Clarity Turbid Urine pH 5.0 Ur Specific [place] 1.013 Urine Protein 2+ H Urine Glucose (UA) Normal Urine Ketones Negative Urine Blood 2+ H Urine Nitrate Negative Urine Bilirubin Negative Urine Urobilinogen Normal Ur Leukocyte Esterase 3+ H Urine WBC (Auto) 2419 H Urine RBC (Auto) 24 H Urine WBC Clumps (Auto) Many H Urine Bacteria Mod H Urine Yeast (Budding) Few H Hep Bs Antigen Hep B Core IgM Ab Hepatitis C Antibody 08/13/18 08/13/18 08/13/18 06:12 06:12 15:20 WBC 13.4 H RBC 4.52 Hgb 9.7 L Hct 29.1 L MCV 64.3 L MCH 21.5 L MCHC 33.4 RDW 18.4 H Plt Count 367 MPV 10.1 Neut % (Auto) 97.0 H Lymph % (Auto) 2.0 L [place] % (Auto) 1.0 Eos % (Auto) 0.0 Baso % (Auto) 0.0 Neut # (Auto) 13.0 H Lymph # (Auto) 0.3 L [place] # (Auto) 0.1 Eos # (Auto) 0.0 Baso # (Auto) 0.0 Neutrophils % (Manual) 95 H Lymphocytes % (Manual) 3 L Monocytes % (Manual) 2 Platelet Estimate Normal Hypochromasia (manual) Slight Poikilocytosis (manual Slight Anisocytosis (manual) Slight Target Cells Slight Tear Drop Cells Slight Ovalocytes Slight [place] Cells Slight PT INR APTT D-Dimer, Quantitative pO2 VBG pH VBG pCO2 VBG HCO3 VBG Total CO2 VBG O2 Sat (Calc) VBG Base Excess VBG Potassium Sodium 134 Chloride 96 L Glucose Lactate FiO2 Crit Value Called To Crit Value Called By Crit Value Read Back Blood Gas Notified Time Potassium 5.1 Carbon Dioxide 10 L* D Anion Gap 33 H BUN 266 H* Creatinine 16.1 H* Est GFR ( Amer) 4 Est GFR (Non-Af Amer) 3 Random Glucose 143 H Calcium 6.7 L Phosphorus 12.3 H Magnesium 3.3 H Total Bilirubin 3.4 H AST 59 ALT 69 Alkaline Phosphatase 211 H NT-Pro-B Natriuret Pep Total Protein 6.5 Albumin 3.1 L Globulin 3.4 Albumin/Globulin Ratio 0.9 L Lipase Venous Blood Potassium Urine Color Urine Clarity Urine pH Ur Specific [place] Urine Protein Urine Glucose (UA) Urine Ketones Urine Blood Urine Nitrate Urine Bilirubin Urine Urobilinogen Ur Leukocyte Esterase Urine WBC (Auto) Urine RBC (Auto) Urine WBC Clumps (Auto) Urine Bacteria Urine Yeast (Budding) Hep Bs Antigen Negative Hep B Core IgM Ab Negative Hepatitis C Antibody Negative 08/13/18 17:21 WBC RBC Hgb Hct MCV MCH MCHC RDW Plt Count MPV Neut % (Auto) Lymph % (Auto) [place] % (Auto) Eos % (Auto) Baso % (Auto) Neut # (Auto) Lymph # (Auto) [place] # (Auto) Eos # (Auto) Baso # (Auto) Neutrophils % (Manual) Lymphocytes % (Manual) Monocytes % (Manual) Platelet Estimate Hypochromasia (manual) Poikilocytosis (manual Anisocytosis (manual) Target Cells Tear Drop Cells Ovalocytes [place] Cells PT INR APTT D-Dimer, Quantitative pO2 VBG pH VBG pCO2 VBG HCO3 VBG Total CO2 VBG O2 Sat (Calc) VBG Base Excess VBG Potassium Sodium 137 Chloride 95 L Glucose Lactate FiO2 Crit Value Called To Crit Value Called By Crit Value Read Back Blood Gas Notified Time Potassium 4.0 Carbon Dioxide 24 Anion Gap 23 H BUN 111 H* D Creatinine 7.4 H* D Est GFR ( Amer) 9 Est GFR (Non-Af Amer) 7 Random Glucose 121 H Calcium 7.5 L Phosphorus 3.9 Magnesium 2.4 H Total Bilirubin 4.1 H AST 86 H D ALT 79 H Alkaline Phosphatase 229 H NT-Pro-B Natriuret Pep Total Protein 7.0 Albumin 3.2 L Globulin 3.8 Albumin/Globulin Ratio 0.9 L Lipase Venous Blood Potassium Urine Color Urine Clarity Urine pH Ur Specific [place] Urine Protein Urine Glucose (UA) Urine Ketones Urine Blood Urine Nitrate Urine Bilirubin Urine Urobilinogen Ur Leukocyte Esterase Urine WBC (Auto) Urine RBC (Auto) Urine WBC Clumps (Auto) Urine Bacteria Urine Yeast (Budding) Hep Bs Antigen Hep B Core IgM Ab Hepatitis C Antibody Assessment & Plan (1) Prostate cancer Status: Acute (2) Dehydration Status: Acute (3) Diarrhea Status: Acute (4) UTI (urinary tract infection) Status: Acute (5) Sepsis Status: Acute (6) Acute renal failure Status: Acute (7) Altered mental state Status: Acute (8) Anemia Status: Acute Priority: Medium (9) Metabolic acidosis Status: Acute Priority: High - Assessment and Plan (Free Text) Assessment: severe sepsis likley secondary to UTI in a 73 yo male with GRAYSON/ CKD and hx of prostate Ca recent urine c/s + for E Coli ( robles sensitive) - unknown if pt receiving rx for this Initial response to IV antibiotics appears favorable however will switch to Merrem pending ID of organism HD is planned and catheter ( temporary ) has been placed
[2018-08-13] MEDS ORDERED: Meropenem 1 GM in Sodium Chloride 0.9% 100 ML IVPB ONE (18:20)
--- NOTE | 2018-08-13 19:52 | CARD ---
APPROVED REPORT Date of service: 08/12/2018 EKG Measurement Heart [id number] <Conclusion> Normal sinus rhythm non specific st t changes. Abnormal ECG
[2018-08-14] MEDS: Dextrose 5%/0.9% NS 1,000 ML IV SCH ×2 (03:45→14:47)
[2018-08-14] MEDS: Meropenem 500 MG in Sodium Chloride 0.9% 100 ML IVPB SCH ×2 (06:13→18:59)
[2018-08-14 06:29] LABS: HEMOGLOBIN 8.5 g/dL (12.0-18.0); MEAN CELL VOLUME 64.3 fL (80.0-94.0); MEAN CORPUSCULAR HEMOGLOBIN 21.8 pg (27.0-31.0); MEAN CORPUSCULAR HGB CONC 33.8 g/dL (33.0-37.0); MEAN PLATELET VOLUME 9.4 fL (7.2-11.7); PLATELET COUNT 266 K/uL (130-400); RBC 3.92 Mil/uL (4.40-5.90); RED CELL DISTRIBUTION WIDTH 18.1 % (11.5-14.5); WHITE BLOOD COUNT 10.8 K/uL (4.8-10.8)
[2018-08-14 06:32] LABS: INR 1.7
[2018-08-14 07:04] LABS: ALB/GLOB RATIO 0.8 (1.0-2.1); ALBUMIN 2.5 g/dL (3.5-5.0); CALCIUM 6.4 mg/dl (8.6-10.4)
[2018-08-14 11:14] LABS: LYMPH # 0.4 K/uL (1.0-4.3); NEUT # 9.5 K/uL (1.8-7.0)
[2018-08-14 11:15] LABS: MONO # 0.9 K/uL (0.0-0.8)
[2018-08-14 11:21] LABS: BANDS 12 % (0-2); LYMPHOCYTE 4 % (20-40); MONOCYTE 8 % (0-10); NEUTROPHIL 76 % (50-75); PLATELET ESTIMATE NORMAL (NORMAL); TOTAL CELLS COUNTED 100
[2018-08-14 11:22] LABS: ANISOCYTOSIS MODERATE
[2018-08-14 11:23] LABS: HYPOCHROMIC SLIGHT; POIKILOCYTOSIS SLIGHT; POLYCHROMIC SLIGHT
[2018-08-14 11:24] LABS: BURR CELLS SLIGHT; GIANT PLATELETS PRESENT; LARGE PLATELETS PRESENT; TARGET CELLS MARKED; TOXIC GRANULATION PRESENT
[2018-08-14 11:25] LABS: OVALOCYTES SLIGHT
--- NOTE | 2018-08-14 15:40 | CP.PCM.PN ---
Subjective - Date & Time of Evaluation Date of Evaluation: 08/14/18 Time of Evaluation: 12:15 - Subjective Subjective: clinically same Objective - Vital Signs/Intake and Output Vital Signs (last 24 hours): Temp Pulse Resp BP Pulse Ox 98 F 78 22 136/67 100 08/14/18 14:30 08/14/18 15:04 08/14/18 15:04 08/14/18 15:30 08/14/18 14:30 Intake and Output: 08/14/18 08/14/18 06:59 18:59 Intake Total 1700 1510 Output Total 0 Balance 1700 1510 - Medications Medications: Current Medications Heparin Sodium (Porcine) (Heparin) 5,000 units SC Q8 [facility] Last Admin: 08/14/18 14:46 Dose: 5,000 units Dextrose/Sodium Chloride (Dextrose 5%/0.9% Ns 1000 Ml) 1,000 mls @ 100 mls/hr IV .Q10H [facility] Last Admin: 08/14/18 14:47 Dose: 100 mls/hr Meropenem 500 mg/ Sodium (Chloride) 100 mls @ 100 mls/hr IVPB Q12H [facility]; Protocol Last Admin: 08/14/18 06:13 Dose: 100 mls/hr - Labs Labs: 08/14/18 06:19 08/14/18 06:19 PT 19.0 SECONDS (9.7-12.2) H 08/14/18 06:19 INR 1.7 08/14/18 06:19 APTT 38 SECONDS (21-34) H 08/14/18 06:19 - Constitutional Appears: Well - Head Exam Head Exam: ATRAUMATIC, NORMAL INSPECTION, NORMOCEPHALIC - Eye Exam Eye Exam: EOMI, Normal appearance, PERRL Pupil Exam: NORMAL ACCOMODATION, PERRL - ENT Exam ENT Exam: Mucous Membranes Moist, Normal Exam - Neck Exam Neck Exam: Full ROM, Normal Inspection. absent: Lymphadenopathy - Respiratory Exam Respiratory Exam: Decreased Breath Sounds - Cardiovascular Exam Cardiovascular Exam: REGULAR RHYTHM, +S1, +S2 - GI/Abdominal Exam GI & Abdominal Exam: Soft, Diminished Bowel Sounds - Rectal Exam Rectal Exam: Deferred
--- NOTE | 2018-08-14 15:43 | CP.PCM.PN ---
Subjective - Date & Time of Evaluation Date of Evaluation: 08/14/18 Time of Evaluation: 15:43 - Subjective Subjective: pt is being dialyzed, uf goal is about 1lit, pt is feeling slightly better, no sob, no cp, no abd. pain, blood c/s and urine c/s are positive for GNR Objective - Vital Signs/Intake and Output Vital Signs (last 24 hours): Temp Pulse Resp BP Pulse Ox 98 F 78 22 136/67 100 08/14/18 14:30 08/14/18 15:04 08/14/18 15:04 08/14/18 15:30 08/14/18 14:30 Intake and Output: 08/14/18 08/14/18 06:59 18:59 Intake Total 1700 1510 Output Total 0 Balance 1700 1510 - Medications Medications: Current Medications Heparin Sodium (Porcine) (Heparin) 5,000 units SC Q8 [facility] Last Admin: 08/14/18 14:46 Dose: 5,000 units Dextrose/Sodium Chloride (Dextrose 5%/0.9% Ns 1000 Ml) 1,000 mls @ 100 mls/hr IV .Q10H [facility] Last Admin: 08/14/18 14:47 Dose: 100 mls/hr Meropenem 500 mg/ Sodium (Chloride) 100 mls @ 100 mls/hr IVPB Q12H [facility]; Protocol Last Admin: 08/14/18 06:13 Dose: 100 mls/hr - Labs Labs: 08/14/18 06:19 08/14/18 06:19 PT 19.0 SECONDS (9.7-12.2) H 08/14/18 06:19 INR 1.7 08/14/18 06:19 APTT 38 SECONDS (21-34) H 08/14/18 06:19 - Constitutional Appears: Well, Non-toxic, No Acute Distress - Head Exam Head Exam: ATRAUMATIC, NORMAL INSPECTION, NORMOCEPHALIC - Eye Exam Eye Exam: EOMI, Normal appearance, PERRL Pupil Exam: NORMAL ACCOMODATION - ENT Exam ENT Exam: Mucous Membranes Moist - Neck Exam Neck Exam: Full ROM - Respiratory Exam Respiratory Exam: Clear to Ausculation Bilateral, NORMAL BREATHING PATTERN - Cardiovascular Exam Cardiovascular Exam: REGULAR RHYTHM, +S1, +S2 - GI/Abdominal Exam GI & Abdominal Exam: Soft, Normal Bowel Sounds - Rectal Exam Rectal Exam: Deferred - Extremities Exam Additional comments: no edema - Neurological Exam Neurological Exam: Alert, Awake, CN II-XII Intact Additional comments: oriented x2 - Psychiatric Exam Psychiatric exam: Normal Affect - Skin Skin Exam: Normal Color, Warm Assessment and Plan - Assessment and Plan (Free Text) Assessment: 73 to AA male with pmh/o htn, prostate cA, ckd-3, ? UTI with diarrhea x 2 weeks, weakness, shaking, decreased uop, difficulty to ambulate vert high bun/cr, confusion, low bicarb, high wbc now blood c/s + ve for GNR urine analysis c/w uti 1. GRAYSON on ckd-3 2. Gram negative sepsis, most likely source is urine, 3. high anaion gap met. acidosis 4. R/o uremic encephalopathy s/p rt ij cath placement yesterday pt is being dialyzed c/w iv abx f/u blood and urine c/s ID consult with Dr. Brown appreciated, on merrem d/w icu attending in rounds change ivf to D5NS at 100 ml/hr
[2018-08-14 22:48] LABS: IRON 42 ug/dL (49-181)
[2018-08-14 22:57] LABS: % IRON SATURATION 24 (20-55); TOTAL IRON BINDING CAPACITY 179 ug/dL (250-450)
[2018-08-15] MEDS: Dextrose 5%/0.9% NS 1,000 ML IV SCH ×4 (00:25→20:01)
[2018-08-15 05:58] LABS: HEMOGLOBIN 8.4 g/dL (12.0-18.0); MEAN CORPUSCULAR HEMOGLOBIN 21.5 pg (27.0-31.0); MEAN CORPUSCULAR HGB CONC 33.2 g/dL (33.0-37.0); RBC 3.9 Mil/uL (4.40-5.90)
[2018-08-15 06:12] LABS: MEAN CELL VOLUME 64.7 fL (80.0-94.0); RED CELL DISTRIBUTION WIDTH 17.8 % (11.5-14.5)
[2018-08-15 06:13] LABS: INR 1.6
[2018-08-15 06:23] LABS: ALB/GLOB RATIO 0.8 (1.0-2.1); ALBUMIN 2.7 g/dL (3.5-5.0); CALCIUM 6.5 mg/dl (8.6-10.4)
[2018-08-15] MEDS: Meropenem 500 MG in Sodium Chloride 0.9% 100 ML IVPB SCH (07:03)
--- NOTE | 2018-08-15 07:10 | CT ---
Date of service: 08/15/2018 PROCEDURE: CT HEAD WITHOUT CONTRAST. HISTORY: r/o stroke, expressive aphasia, uremia COMPARISON: 08/12/2018 TECHNIQUE: Axial computed tomography images were obtained through the head/brain without intravenous contrast. Radiation dose: Total exam DLP = 1268.53 mGy-cm. This CT exam was performed using one or more of the following dose reduction techniques: Automated exposure control, adjustment of the mA and/or kV according to patient size, and/or use of iterative reconstruction technique. FINDINGS: HEMORRHAGE: No intracranial hemorrhage. BRAIN: No mass effect or edema. Scattered focal lucencies in the subcortical and periventricular white matter suggestive for moderate to severe chronic microvascular ischemic change. Additional focal hypodensity seen within the posterior left frontal parietal white matter suggestive for chronic infarct. Punctate left caudate head lacunar infarct. VENTRICLES: Diffuse prominence. CALVARIUM: Unremarkable. PARANASAL SINUSES: Mild mucosal thickening of the bilateral maxillary sinuses and ethmoid air cells. MASTOID AIR CELLS: Unremarkable as visualized. No inflammatory changes. OTHER FINDINGS: None. IMPRESSION: Moderate to severe chronic microvascular ischemic changes. Chronic lacunar infarcts in the left caudate head and basal ganglia. Small chronic infarct in the posterior left frontal parietal white matter. Sinus mucosal disease. If symptoms persists, consider correlation with MRI. These findings were preliminarily reported at 2:45 a.m. on 08/15/[address] Mila Billy from [employer].
[2018-08-15 07:14] LABS: MCH 21.7 pg (27.0-33.0); MCV 68.6 fL (80.0-100.0)
[2018-08-15 09:17] LABS: EOS # 0.1 K/uL (0.0-0.7); LYMPH # 1.1 K/uL (1.0-4.3); MONO # 0.3 K/uL (0.0-0.8); NEUT # 9.5 K/uL (1.8-7.0)
--- NOTE | 2018-08-15 12:58 | CP.PCM.PN ---
Subjective - Date & Time of Evaluation Date of Evaluation: 08/15/18 Time of Evaluation: 11:30 - Subjective Subjective: clinically same Objective - Vital Signs/Intake and Output Vital Signs (last 24 hours): Temp Pulse Resp BP Pulse Ox 98.8 F 99 H 26 H 150/64 96 08/15/18 12:00 08/15/18 12:10 08/15/18 12:10 08/15/18 12:10 08/15/18 12:10 Intake and Output: 08/15/18 08/15/18 06:59 18:59 Intake Total 1300 620 Output Total 15 0 Balance 1285 620 - Medications Medications: Current Medications Heparin Sodium (Porcine) (Heparin) 5,000 units SC Q8 [facility]LE[facility] Last Admin: 08/15/18 05:41 Dose: 5,000 units Dextrose/Sodium Chloride (Dextrose 5%/0.9% Ns 1000 Ml) 1,000 mls @ 100 mls/hr IV .Q10H [facility] Last Admin: 08/15/18 00:25 Dose: 100 mls/hr Meropenem 500 mg/ Sodium (Chloride) 100 mls @ 100 mls/hr IVPB Q12H [facility]; Protocol Last Admin: 08/15/18 07:03 Dose: 100 mls/hr - Labs Labs: 08/15/18 05:51 08/15/18 05:51 PT 17.0 SECONDS (9.7-12.2) H 08/15/18 05:51 INR 1.6 08/15/18 05:51 APTT 37 SECONDS (21-34) H 08/15/18 05:51 - Constitutional Appears: Well - Head Exam Head Exam: ATRAUMATIC, NORMAL INSPECTION, NORMOCEPHALIC - Eye Exam Eye Exam: EOMI, Normal appearance, PERRL Pupil Exam: NORMAL ACCOMODATION, PERRL - ENT Exam ENT Exam: Mucous Membranes Moist, Normal Exam - Neck Exam Neck Exam: Full ROM, Normal Inspection. absent: Lymphadenopathy - Respiratory Exam Respiratory Exam: Decreased Breath Sounds - Cardiovascular Exam Cardiovascular Exam: REGULAR RHYTHM, +S1, +S2 - GI/Abdominal Exam GI & Abdominal Exam: Soft, Diminished Bowel Sounds - Rectal Exam Rectal Exam: Deferred
[2018-08-15] MEDS ORDERED: EPOETIN ALFA 10,000 UNIT/ML ML SC ONE ×2 (14:30→16:00)
--- NOTE | 2018-08-15 16:09 | CP.PCM.PN ---
Subjective - Date & Time of Evaluation Date of Evaluation: 08/15/18 Time of Evaluation: 07:00 - Subjective Subjective: more awake urine/ blood + E Coli IV rx in progress Objective - Vital Signs/Intake and Output Vital Signs (last 24 hours): Temp Pulse Resp BP Pulse Ox 98.8 F 85 21 143/69 90 L 08/15/18 12:00 08/15/18 15:10 08/15/18 15:10 08/15/18 15:10 08/15/18 15:10 Intake and Output: 08/15/18 08/15/18 06:59 18:59 Intake Total 1300 620 Output Total 15 0 Balance 1285 620 - Medications Medications: Current Medications Heparin Sodium (Porcine) (Heparin) 5,000 units SC Q8 ALEC Last Admin: 08/15/18 13:44 Dose: 5,000 units Dextrose/Sodium Chloride (Dextrose 5%/0.9% Ns 1000 Ml) 1,000 mls @ 100 mls/hr IV .Q10H [facility] Last Admin: 08/15/18 13:45 Dose: 100 mls/hr Meropenem 500 mg/ Sodium (Chloride) 100 mls @ 100 mls/hr IVPB Q12H [facility]; Protocol Last Admin: 08/15/18 07:03 Dose: 100 mls/hr - Labs Labs: 08/15/18 05:51 08/15/18 05:51 PT 17.0 SECONDS (9.7-12.2) H 08/15/18 05:51 INR 1.6 08/15/18 05:51 APTT 37 SECONDS (21-34) H 08/15/18 05:51 - Constitutional Appears: Non-toxic, Chronically Ill - Head Exam Head Exam: NORMOCEPHALIC - Eye Exam Eye Exam: absent: Scleral icterus - ENT Exam ENT Exam: Mucous Membranes Dry - Neck Exam Neck Exam: absent: Lymphadenopathy - Respiratory Exam Respiratory Exam: Decreased Breath Sounds - Cardiovascular Exam Cardiovascular Exam: REGULAR RHYTHM - GI/Abdominal Exam GI & Abdominal Exam: Distended, Soft - Rectal Exam Rectal Exam: Deferred - Exam Exam: NORMAL INSPECTION Assessment and Plan (1) Prostate cancer Status: Acute (2) Dehydration Status: Acute (3) Diarrhea Status: Acute (4) UTI (urinary tract infection) Status: Acute (5) Sepsis Status: Acute (6) Acute renal failure Status: Acute (7) Altered mental state Status: Acute (8) Anemia Status: Acute (9) Metabolic acidosis Status: Acute - Assessment and Plan (Free Text) Assessment: cont iv rx ofr urosepsis
--- NOTE | 2018-08-15 16:10 | CP.PCM.CON ---
History of Present Illness - History of Present Illness History of Present Illness: Neurology Consultation Note: Mr. Baptiste is a 73-year-old man with a past medical history of ESRD, IVDA, HTN, who was admitted for uremia and had asterixis/shaking, yesterday was found to have an expressive aphasia. Non-contrast CT scan of the head showed multiple bilateral lacunar infarcts. On telemetry, he was found to have paroxysmal atrial fibrillation. He continues to have asterixis and expressive aphasia. Review of Systems - Review of Systems Systems not reviewed;Unavailable: Altered Mental Status Past Patient History - Past Medical History & Family History Past Medical History?: Yes - Past Social History Smoking Status: Never Smoked - CARDIAC Hx Hypertension: Yes - RENAL Hx Chronic Kidney Disease: Yes - MUSCULOSKELETAL/RHEUMATOLOGICAL Hx Falls: No (denies) - GASTROINTESTINAL Hx Gastritis: Yes - GENITOURINARY/GYNECOLOGICAL Hx Prostate Cancer: Yes (per ER record) Hx Urinary Tract Infection: Yes - PSYCHIATRIC Hx Substance Use: No Meds Allergies/Adverse Reactions: Allergies Allergy/AdvReac Type Severity Reaction Status Date / Time No Known Allergies Allergy Verified 04/20/14 15:54 - Medications Medications: Current Medications Heparin Sodium (Porcine) (Heparin) 5,000 units SC Q8 [facility] Last Admin: 08/15/18 13:44 Dose: 5,000 units Dextrose/Sodium Chloride (Dextrose 5%/0.9% Ns 1000 Ml) 1,000 mls @ 100 mls/hr IV .Q10H [facility] Last Admin: 08/15/18 13:45 Dose: 100 mls/hr Meropenem 500 mg/ Sodium (Chloride) 100 mls @ 100 mls/hr IVPB Q12H [facility]; Protocol Last Admin: 08/15/18 07:03 Dose: 100 mls/hr Physical Exam - Constitutional Appears: Chronically Ill - Head Exam Head Exam: ATRAUMATIC, NORMAL INSPECTION, NORMOCEPHALIC - Eye Exam Eye Exam: EOMI, Normal appearance, PERRL - ENT Exam ENT Exam: Mucous Membranes Moist, Normal Exam - Neck Exam Neck exam: Positive for: Normal Inspection - GI/Abdominal Exam GI & Abdominal Exam: Normal Bowel Sounds, Soft. absent: Tenderness - Rectal Exam Rectal Exam: Deferred - Back Exam Back exam: NORMAL INSPECTION - Neurological Exam Neurological exam: Altered, CN II-XII Intact, Normal Gait, Oriented x3, Reflexes Normal Additional comments: Speech is mildly aphasic. Naming is intact, repetition is impaired. Reflexes are brisk throughout. Upgoing plantar response on the right. NIHSS = 2 Results - Vital Signs Recent Vital Signs: Last Vital Signs Temp 98.8 F 08/15/18 12:00 Pulse 85 08/15/18 15:10 Resp 21 08/15/18 15:10 BP 143/69 08/15/18 15:10 Pulse Ox 90 L 08/15/18 15:10 - Labs Result Diagrams: 08/15/18 05:51 08/15/18 05:51 Labs: Laboratory Results - last 24 hr 08/14/18 08/14/18 08/14/18 11:48 17:34 22:28 WBC RBC Hgb Hct MCV MCH MCHC RDW Plt Count MPV Neut % (Auto) Lymph % (Auto) Glad[place] % (Auto) Eos % (Auto) Baso % (Auto) Neut # (Auto) Lymph # (Auto) Glad[place] # (Auto) Eos # (Auto) Baso # (Auto) Hemoglobinopathy Red Blood Count 3.92 L Hemoglobinopathy Hct 26.9 L Hemoglobinopathy Hgb 8.5 L Hemoglobinopathy MCV 68.6 L Hemoglobinopathy MCH 21.7 L Hemoglobinopathy RDW 18.7 H PT INR APTT Sodium Potassium Chloride Carbon Dioxide Anion Gap BUN Creatinine Est GFR ( Amer) Est GFR (Non-Af Amer) POC Glucose (mg/dL) 123 H Random Glucose Calcium Phosphorus Magnesium Iron 42 L TIBC 179 L % Saturation 24 Total Bilirubin AST ALT Alkaline Phosphatase Total Protein Albumin Globulin Albumin/Globulin Ratio 08/15/18 08/15/18 08/15/18 05:51 05:51 05:51 WBC 11.0 H RBC 3.90 L Hgb 8.4 L Hct 25.3 L MCV 64.7 L MCH 21.5 L MCHC 33.2 RDW 17.8 H Plt Count 214 MPV 9.0 Neut % (Auto) 86.0 H Lymph % (Auto) 10.0 L Glad[place] % (Auto) 3.0 Eos % (Auto) 1.0 Baso % (Auto) 0.0 Neut # (Auto) 9.5 H Lymph # (Auto) 1.1 [place] # (Auto) 0.3 Eos # (Auto) 0.1 Baso # (Auto) 0.0 Hemoglobinopathy Red Blood Count Hemoglobinopathy Hct Hemoglobinopathy Hgb Hemoglobinopathy MCV Hemoglobinopathy MCH Hemoglobinopathy RDW PT 17.0 H INR 1.6 APTT 37 H Sodium 136 Potassium 5.4 H Chloride 103 Carbon Dioxide 21 L Anion Gap 17 BUN 89 H Creatinine 7.1 H Est GFR ( Amer) 9 Est GFR (Non-Af Amer) 8 POC Glucose (mg/dL) Random Glucose 141 H Calcium 6.5 L Phosphorus 5.8 H Magnesium 2.2 Iron TIBC % Saturation Total Bilirubin 2.3 H AST 79 H ALT 50 Alkaline Phosphatase 174 H Total Protein 6.0 L Albumin 2.7 L Globulin 3.3 Albumin/Globulin Ratio 0.8 L Assessment & Plan (1) Ischemic stroke Assessment and Plan: It is difficult to determine by the CT scan alone if the strokes are acute, subacute or chronic. An MRI of the brain is recommended. However, the patient has paroxysmal atrial fibrillation and should be started on secondary stroke prevention with Eliquis 2.5 mg BID. I addition, I recommend the followin. Cardiac monitoring 2. MRI brain without contrast and MRA of the head/neck without contrast 3. Echocardiogram 4. Check HbA1c, B12, lipid panel, folate, vitamin D levels 5. PT/OT eval and Speech therapy eval and treatment 6. Case management consult Thank you for this consultation. Status: Acute
--- NOTE | 2018-08-15 16:33 | CP.CCUPN ---
CCU Subjective - Physician Review Events Since Last Encounter (Free Text): 08/15/18 16:29 alert, slight expressive aphasia. CCU Objective - Vital Signs / Intake & Output Vital Signs (Last 4 hours): Vital Signs Pulse Resp BP Pulse Ox 08/15/18 15:10 85 21 143/69 90 L 08/15/18 15:00 82 13 100 08/15/18 14:10 96 H 17 147/73 100 08/15/18 14:00 83 21 100 08/15/18 13:10 96 H 17 135/72 08/15/18 13:00 88 19 Intake and Output (Last 8hrs): Intake & Output 08/15/18 08/15/18 08/15/18 06:59 14:59 22:59 Intake Total 900 620 Output Total 0 0 Balance 900 620 Weight 152 lb Intake: Intake, IV Amount 800 500 Left Forearm 800 500 Oral 100 120 Output: Urine 0 0 Urine, Voided 0 0 Oral Regurgitation 0 0 Other: # Voids Urine, Voided 1 # Bowel Movements 0 0 - Physical Exam Head: Positive for: Atraumatic, Normocephalic Pupils: Positive for: PERRL Extroacular Muscles: Positive for: EOMI Conjunctiva: Positive for: Normal Mouth: Positive for: Dry Neck: Positive for: Normal Range of Motion, Trachea Midline. Negative for: Meningeal Signs, MIDLINE TENDERNESS, Paraspinal Tenderness, JVD, Lymphadenopathy, Bruit, Other Respiratory/Chest: Positive for: Clear to Auscultation, Good Air Exchange, Respiratory Distress. Negative for: Accessory Muscle Use Cardiovascular: Positive for: Regular Rate and Rhythm, Normal S1, S2, Peripheal Pulses Present. Negative for: Murmurs, Irregular Rhythm, Tachycardic, Bradycardic Abdomen: Positive for: Normal Bowel Sounds. Negative for: Tenderness, Distention, Peritoneal Signs Neurological: Positive for: GCS=15, CN II-XII Intact, Speech Normal, Motor Func Grossly Intact, Normal Sensory Function, Other (asterixis) Psychiatric: Positive for: Alert, Oriented x 3 - Medications Active Medications: Active Medications Generic Name Dose Route Start Last Admin Trade Name Freq PRN Reason Stop Dose Admin Apixaban 2.5 mg 08/15/18 18:00 Eliquis PO BID ALCE Heparin Sodium (Porcine) 5,000 units 08/13/18 00:45 08/15/18 13:44 Heparin SC 5,000 units Q8 [facility] Administration Dextrose/Sodium Chloride 1,000 mls @ 100 mls/hr 08/13/18 17:30 08/15/18 13:45 Dextrose 5%/0.9% Ns 1000 Ml IV 100 mls/hr .Q10H [facility] Administration Cefepime HCl 1 gm in 50 mls @ 100 mls/hr 08/15/18 17:00 Maxipime Iv 1 Gm Premix IVPB Q24H [facility] Protocol - Patient Studies Lab Studies: Microbiology Studies 08/13/18 14:47 Stool Culture - Final Stool NO SALMONELLA, SHIGELLA OR CAMPYLOBACTER ISOLATED. 08/13/18 05:18 Urine Culture - Final Urine Escherichia Coli 08/12/18 20:30 Blood Culture - Final Blood Escherichia Coli Gram Stain - Final 08/12/18 20:30 Blood Culture - Preliminary Blood NO GROWTH AFTER 48 HOURS 08/13/18 14:47 Ova and Parasite Concentrate Exam - Final Rectum 08/13/18 05:18 MRSA Culture (Admit) - Final Nose MRSA NOT DETECTED Lab Studies 08/15/18 08/15/18 08/15/18 Range/Units 05:51 05:51 05:51 WBC 11.0 H (4.8-10.8) K/uL RBC 3.90 L (4.40-5.90) Mil/uL Hgb 8.4 L (12.0-18.0) g/dL Hct 25.3 L (35.0-51.0) % MCV 64.7 L (80.0-94.0) fL MCH 21.5 L (27.0-31.0) pg MCHC 33.2 (33.0-37.0) g/dL RDW 17.8 H (11.5-14.5) % Plt Count 214 (130-400) K/uL MPV 9.0 (7.2-11.7) fL Neut % (Auto) 86.0 H (50.0-75.0) % Lymph % (Auto) 10.0 L (20.0-40.0) % Mckean % (Auto) 3.0 (0.0-10.0) % Eos % (Auto) 1.0 (0.0-4.0) % Baso % (Auto) 0.0 (0.0-2.0) % Neut # (Auto) 9.5 H (1.8-7.0) K/uL Lymph # (Auto) 1.1 (1.0-4.3) K/uL Mckean # (Auto) 0.3 (0.0-0.8) K/uL Eos # (Auto) 0.1 (0.0-0.7) K/uL Baso # (Auto) 0.0 (0.0-0.2) K/uL Hemoglobinopathy Red Blood Count (4.20-5.80) Mill/mcL Hemoglobinopathy Hct (38.5-50.0) % Hemoglobinopathy Hgb (13.2-17.1) g/dL Hemoglobinopathy MCV (80.0-100.0) fL Hemoglobinopathy MCH (27.0-33.0) pg Hemoglobinopathy RDW (11.0-15.0) % PT 17.0 H (9.7-12.2) SECONDS INR 1.6 APTT 37 H (21-34) SECONDS Sodium 136 (132-148) mmol/L Potassium 5.4 H (3.6-5.2) mmol/L Chloride 103 (98-107) mmol/L Carbon Dioxide 21 L (22-30) mmol/L Anion Gap 17 (10-20) BUN 89 H (9-20) mg/dL Creatinine 7.1 H (0.8-1.5) mg/dL Est GFR ( Amer) 9 Est GFR (Non-Af Amer) 8 POC Glucose (mg/dL) (65-110) mg/dL Random Glucose 141 H (75-110) mg/dL Calcium 6.5 L (8.6-10.4) mg/dl Phosphorus 5.8 H (2.5-4.5) mg/dL Magnesium 2.2 (1.6-2.3) mg/dL Iron (49-181) ug/dL TIBC (250-450) ug/dL % Saturation (20-55) Total Bilirubin 2.3 H (0.2-1.3) mg/dL AST 79 H (17-59) U/L ALT 50 (21-72) U/L Alkaline Phosphatase 174 H (38-126) U/L Total Protein 6.0 L (6.3-8.3) g/dL Albumin 2.7 L (3.5-5.0) g/dL Globulin 3.3 (2.2-3.9) gm/dL Albumin/Globulin Ratio 0.8 L (1.0-2.1) 08/14/18 08/14/18 08/14/18 Range/Units 22:28 17:34 11:48 WBC (4.8-10.8) K/uL RBC (4.40-5.90) Mil/uL Hgb (12.0-18.0) g/dL Hct (35.0-51.0) % MCV (80.0-94.0) fL MCH (27.0-31.0) pg MCHC (33.0-37.0) g/dL RDW (11.5-14.5) % Plt Count (130-400) K/uL MPV (7.2-11.7) fL Neut % (Auto) (50.0-75.0) % Lymph % (Auto) (20.0-40.0) % Mckean % (Auto) (0.0-10.0) % Eos % (Auto) (0.0-4.0) % Baso % (Auto) (0.0-2.0) % Neut # (Auto) (1.8-7.0) K/uL Lymph # (Auto) (1.0-4.3) K/uL Mckean # (Auto) (0.0-0.8) K/uL Eos # (Auto) (0.0-0.7) K/uL Baso # (Auto) (0.0-0.2) K/uL Hemoglobinopathy Red Blood Count 3.92 L (4.20-5.80) Mill/mcL Hemoglobinopathy Hct 26.9 L (38.5-50.0) % Hemoglobinopathy Hgb 8.5 L (13.2-17.1) g/dL Hemoglobinopathy MCV 68.6 L (80.0-100.0) fL Hemoglobinopathy MCH 21.7 L (27.0-33.0) pg Hemoglobinopathy RDW 18.7 H (11.0-15.0) % PT (9.7-12.2) SECONDS INR APTT (21-34) SECONDS Sodium (132-148) mmol/L Potassium (3.6-5.2) mmol/L Chloride (98-107) mmol/L Carbon Dioxide (22-30) mmol/L Anion Gap (10-20) BUN (9-20) mg/dL Creatinine (0.8-1.5) mg/dL Est GFR ( Amer) Est GFR (Non-Af Amer) POC Glucose (mg/dL) 123 H (65-110) mg/dL Random Glucose (75-110) mg/dL Calcium (8.6-10.4) mg/dl Phosphorus (2.5-4.5) mg/dL Magnesium (1.6-2.3) mg/dL Iron 42 L (49-181) ug/dL TIBC 179 L (250-450) ug/dL % Saturation 24 (20-55) Total Bilirubin (0.2-1.3) mg/dL AST (17-59) U/L ALT (21-72) U/L Alkaline Phosphatase (38-126) U/L Total Protein (6.3-8.3) g/dL Albumin (3.5-5.0) g/dL Globulin (2.2-3.9) gm/dL Albumin/Globulin Ratio (1.0-2.1) Laboratory Results - last 24 hr 08/14/18 08/14/18 08/14/18 11:48 17:34 22:28 WBC RBC Hgb Hct MCV MCH MCHC RDW Plt Count MPV Neut % (Auto) Lymph % (Auto) [place]ke[place] % (Auto) Eos % (Auto) Baso % (Auto) Neut # (Auto) Lymph # (Auto) [place]ke[place] # (Auto) Eos # (Auto) Baso # (Auto) Hemoglobinopathy Red Blood Count 3.92 L Hemoglobinopathy Hct 26.9 L Hemoglobinopathy Hgb 8.5 L Hemoglobinopathy MCV 68.6 L Hemoglobinopathy MCH 21.7 L Hemoglobinopathy RDW 18.7 H PT INR APTT Sodium Potassium Chloride Carbon Dioxide Anion Gap BUN Creatinine Est GFR ( Amer) Est GFR (Non-Af Amer) POC Glucose (mg/dL) 123 H Random Glucose Calcium Phosphorus Magnesium Iron 42 L TIBC 179 L % Saturation 24 Total Bilirubin AST ALT Alkaline Phosphatase Total Protein Albumin Globulin Albumin/Globulin Ratio 08/15/18 08/15/18 08/15/18 05:51 05:51 05:51 WBC 11.0 H RBC 3.90 L Hgb 8.4 L Hct 25.3 L MCV 64.7 L MCH 21.5 L MCHC 33.2 RDW 17.8 H Plt Count 214 MPV 9.0 Neut % (Auto) 86.0 H Lymph % (Auto) 10.0 L Mckean % (Auto) 3.0 Eos % (Auto) 1.0 Baso % (Auto) 0.0 Neut # (Auto) 9.5 H Lymph # (Auto) 1.1 Mckean # (Auto) 0.3 Eos # (Auto) 0.1 Baso # (Auto) 0.0 Hemoglobinopathy Red Blood Count Hemoglobinopathy Hct Hemoglobinopathy Hgb Hemoglobinopathy MCV Hemoglobinopathy MCH Hemoglobinopathy RDW PT 17.0 H INR 1.6 APTT 37 H Sodium 136 Potassium 5.4 H Chloride 103 Carbon Dioxide 21 L Anion Gap 17 BUN 89 H Creatinine 7.1 H Est GFR ( Amer) 9 Est GFR (Non-Af Amer) 8 POC Glucose (mg/dL) Random Glucose 141 H Calcium 6.5 L Phosphorus 5.8 H Magnesium 2.2 Iron TIBC % Saturation Total Bilirubin 2.3 H AST 79 H ALT 50 Alkaline Phosphatase 174 H Total Protein 6.0 L Albumin 2.7 L Globulin 3.3 Albumin/Globulin Ratio 0.8 L Review of Systems - Review of Systems All systems: reviewed and no additional remarkable complaints except (no complaints) Critical Care Progress Note - Nutrition Nutrition: Nutrition Category Date Time Status Renal Diet [DIET] Diets 08/13/18 Breakfast Active Assessment/Plan (1) Acute renal failure Assessment and plan: patient has mulitiple lacunar infarcts on head CT. Paroxysmal afib seen on telemetry. Neurology consulted, MRI of brain ordered, Starting patient on Eliquis, renally dosed. Uremia improved with dilaysis. Renal to decide need for continued dialysis. Patient clinically stable for downgrade to the floors. Critical Care time 35 minutes Current Visit: Yes Status: Acute
--- NOTE | 2018-08-15 17:26 | CP.PCM.PN ---
Subjective - Date & Time of Evaluation Date of Evaluation: 08/15/18 Time of Evaluation: 17:26 - Subjective Subjective: pt is feeling better, more alert, slight + expressive aphasia, improving shaking/termors s/p hd x2 since admission new onset A fib+ Objective - Vital Signs/Intake and Output Vital Signs (last 24 hours): Temp Pulse Resp BP Pulse Ox 98.1 F 88 19 146/75 86 L 08/15/18 16:00 08/15/18 17:00 08/15/18 17:00 08/15/18 16:10 08/15/18 17:00 Intake and Output: 08/15/18 08/15/18 06:59 18:59 Intake Total 1300 1220 Output Total 15 100 Balance 1285 1120 - Medications Medications: Current Medications Apixaban (Eliquis) 2.5 mg PO BID [facility] Heparin Sodium (Porcine) (Heparin) 5,000 units SC Q8 [facility] Last Admin: 08/15/18 13:44 Dose: 5,000 units Dextrose/Sodium Chloride (Dextrose 5%/0.9% Ns 1000 Ml) 1,000 mls @ 100 mls/hr IV .Q10H [facility] Last Admin: 08/15/18 13:45 Dose: 100 mls/hr Cefepime HCl (Maxipime Iv 1 Gm Premix) 1 gm in 50 mls @ 100 mls/hr IVPB Q24H [facility]; Protocol - Labs Labs: 08/15/18 05:51 08/15/18 05:51 PT 17.0 SECONDS (9.7-12.2) H 08/15/18 05:51 INR 1.6 08/15/18 05:51 APTT 37 SECONDS (21-34) H 08/15/18 05:51 - Constitutional Appears: Well, Non-toxic, No Acute Distress - Head Exam Head Exam: ATRAUMATIC, NORMAL INSPECTION - Eye Exam Eye Exam: EOMI, Normal appearance, PERRL Pupil Exam: NORMAL ACCOMODATION - ENT Exam ENT Exam: Mucous Membranes Moist - Neck Exam Neck Exam: Full ROM - Respiratory Exam Respiratory Exam: Clear to Ausculation Bilateral, NORMAL BREATHING PATTERN - Cardiovascular Exam Cardiovascular Exam: Irregular Rhythm, +S1, +S2 - GI/Abdominal Exam GI & Abdominal Exam: Firm, Soft, Normal Bowel Sounds - Rectal Exam Rectal Exam: Deferred - Extremities Exam Additional comments: no edema - Neurological Exam Neurological Exam: Alert, Awake, CN II-XII Intact Additional comments: oriented 2-3 - Psychiatric Exam Psychiatric exam: Normal Affect, Normal Mood - Skin Skin Exam: Normal Color Assessment and Plan - Assessment and Plan (Free Text) Assessment: 73 to AA male with pmh/o htn, prostate cA, ckd-3, ? UTI with diarrhea x 2 weeks, weakness, shaking, decreased uop, difficulty to ambulate vert high bun/cr, confusion, low bicarb, high wbc now blood c/s + ve for GNR urine analysis c/w uti 1. GRAYSON on ckd-3 2. Gram negative sepsis, most likely source is urine, 3. high anaion gap met. acidosis 4. R/o uremic encephalopathy s/p rt ij cath placement yesterday pt is being dialyzed c/w iv abx f/u blood and urine c/s ID consult with Dr. Kevin shaw, on merrem d/w icu attending in rounds change ivf to D5NS at 100 ml/hr Plan: 73 to AA male with pmh/o htn, prostate cA, ckd-3, ? UTI with diarrhea x 2 weeks, weakness, shaking, decreased uop, difficulty to ambulate vert high bun/cr, confusion, low bicarb, high wbc now blood c/s + ve for GNR urine analysis c/w uti 1. GRAYSON on ckd-3 2. Gram negative sepsis, most likely source is urine, 3. high anaion gap met. acidosis 4. R/o uremic encephalopathy s/p rt ij cath placement yesterday pt is being dialyzed c/w iv abx blood and urine c/s are positive for E. coli f/u with ID and neurology consider Cardiology evaluation check ECHO change ivf to D5NS at 100 ml/hr
[2018-08-15] MEDS: Cefepime IV 1 gm in Dextrose 1 GM/50 ML BAG IVPB SCH (17:55)
[2018-08-16] MEDS: Dextrose 5%/0.9% NS 1,000 ML IV SCH ×2 (04:59→14:39)
[2018-08-16 06:41] LABS: ALB/GLOB RATIO 0.8 (1.0-2.1); ALBUMIN 2.5 g/dL (3.5-5.0); CALCIUM 6.2 mg/dl (8.6-10.4)
[2018-08-16 07:14] LABS: BASO % 0.3 % (0.0-2.0); EOS # 0.1 K/uL (0.0-0.7); HEMOGLOBIN 8.2 g/dL (12.0-18.0); LYMPH # 0.7 K/uL (1.0-4.3); LYMPH % 6.4 % (20.0-40.0); MEAN CELL VOLUME 65.3 fL (80.0-94.0); MEAN CORPUSCULAR HEMOGLOBIN 21.5 pg (27.0-31.0); MEAN CORPUSCULAR HGB CONC 32.9 g/dL (33.0-37.0); MEAN PLATELET VOLUME 9.4 fL (7.2-11.7); MONO # 1.1 K/uL (0.0-0.8); MONO % 9.9 % (0.0-10.0); NEUT # 8.9 K/uL (1.8-7.0); NEUT % 82.4 % (50.0-75.0); PLATELET COUNT 207 K/uL (130-400); RED CELL DISTRIBUTION WIDTH 17.2 % (11.5-14.5); WHITE BLOOD COUNT 10.8 K/uL (4.8-10.8)
[2018-08-16 07:24] LABS: INR 1.5; PROTHROMBIN TIME 16.7 SECONDS (9.7-12.2)
[2018-08-16 09:33] LABS: EOSINOPHIL 4 % (0-4); LYMPHOCYTE 5 % (20-40); MONOCYTE 4 % (0-10); NEUTROPHIL 87 % (50-75); PLATELET ESTIMATE NORMAL (NORMAL); TOTAL CELLS COUNTED 100
[2018-08-16 09:34] LABS: ANISOCYTOSIS SLIGHT; MICROCYTOSIS SLIGHT; POIKILOCYTOSIS SLIGHT; TARGET CELLS SLIGHT; TEARDROP CELLS SLIGHT
[2018-08-16 09:35] LABS: HYPOCHROMIC MODERATE; OVALOCYTES SLIGHT
[2018-08-16 09:36] LABS: BURR CELLS SLIGHT
--- NOTE | 2018-08-16 11:09 | CP.PCM.PN ---
Subjective - Date & Time of Evaluation Date of Evaluation: 08/16/18 Time of Evaluation: 08:00 - Subjective Subjective: afeb alert nad Objective - Vital Signs/Intake and Output Vital Signs (last 24 hours): Temp Pulse Resp BP Pulse Ox 98.5 F 78 23 154/73 H 100 08/16/18 08:00 08/16/18 08:11 08/16/18 08:11 08/16/18 08:11 08/16/18 08:11 Intake and Output: 08/16/18 08/16/18 06:59 18:59 Intake Total 1240 200 Output Total 100 Balance 1140 200 - Medications Medications: Current Medications Apixaban (Eliquis) 2.5 mg PO BID [facility] Last Admin: 08/16/18 10:13 Dose: 2.5 mg Dextrose/Sodium Chloride (Dextrose 5%/0.9% Ns 1000 Ml) 1,000 mls @ 100 mls/hr IV .Q10H [facility] Last Admin: 08/16/18 04:59 Dose: Not Given Cefepime HCl (Maxipime Iv 1 Gm Premix) 1 gm in 50 mls @ 100 mls/hr IVPB Q24H [facility]; Protocol Last Admin: 08/15/18 17:55 Dose: 100 mls/hr - Labs Labs: 08/16/18 07:07 08/16/18 06:03 PT 16.7 SECONDS (9.7-12.2) H 08/16/18 07:07 INR 1.5 08/16/18 07:07 APTT 34 SECONDS (21-34) 08/16/18 07:07 - Constitutional Appears: Non-toxic, Chronically Ill - Head Exam Head Exam: NORMOCEPHALIC - Eye Exam Eye Exam: absent: Scleral icterus - ENT Exam ENT Exam: Mucous Membranes Dry - Neck Exam Neck Exam: absent: Lymphadenopathy - Respiratory Exam Respiratory Exam: Decreased Breath Sounds - Cardiovascular Exam Cardiovascular Exam: REGULAR RHYTHM - GI/Abdominal Exam GI & Abdominal Exam: Distended, Soft - Rectal Exam Rectal Exam: Deferred Assessment and Plan (1) Prostate cancer Status: Acute (2) Dehydration Status: Acute (3) Diarrhea Status: Acute (4) UTI (urinary tract infection) Status: Acute (5) Sepsis Status: Acute (6) Acute renal failure Status: Acute (7) Altered mental state Status: Acute (8) Anemia Status: Acute (9) Metabolic acidosis Status: Acute - Assessment and Plan (Free Text) Assessment: cont IV rocephin gu eval recommended
--- NOTE | 2018-08-16 12:14 | CP.PCM.PN ---
Subjective - Date & Time of Evaluation Date of Evaluation: 08/16/18 Time of Evaluation: 12:14 - Subjective Subjective: pt is feeling much better, speach is improving, no sob, Objective - Vital Signs/Intake and Output Vital Signs (last 24 hours): Temp Pulse Resp BP Pulse Ox 98.5 F 84 24 159/78 H 100 08/16/18 08:00 08/16/18 11:10 08/16/18 11:10 08/16/18 11:10 08/16/18 11:10 Intake and Output: 08/16/18 08/16/18 06:59 18:59 Intake Total 1240 650 Output Total 100 Balance 1140 650 - Medications Medications: Current Medications Apixaban (Eliquis) 2.5 mg PO BID [facility] Last Admin: 08/16/18 10:13 Dose: 2.5 mg Dextrose/Sodium Chloride (Dextrose 5%/0.9% Ns 1000 Ml) 1,000 mls @ 100 mls/hr IV .Q10H [facility] Last Admin: 08/16/18 04:59 Dose: Not Given Cefepime HCl (Maxipime Iv 1 Gm Premix) 1 gm in 50 mls @ 100 mls/hr IVPB Q24H [facility]; Protocol Last Admin: 08/15/18 17:55 Dose: 100 mls/hr - Labs Labs: 08/16/18 07:07 08/16/18 06:03 PT 16.7 SECONDS (9.7-12.2) H 08/16/18 07:07 INR 1.5 08/16/18 07:07 APTT 34 SECONDS (21-34) 08/16/18 07:07 - Constitutional Appears: Well, Non-toxic, No Acute Distress - Head Exam Head Exam: ATRAUMATIC, NORMAL INSPECTION, NORMOCEPHALIC - Eye Exam Eye Exam: EOMI, Normal appearance, PERRL Pupil Exam: NORMAL ACCOMODATION - ENT Exam ENT Exam: Mucous Membranes Moist - Neck Exam Neck Exam: Full ROM - Respiratory Exam Respiratory Exam: Clear to Ausculation Bilateral, NORMAL BREATHING PATTERN - Cardiovascular Exam Cardiovascular Exam: Irregular Rhythm, +S1, +S2 - GI/Abdominal Exam GI & Abdominal Exam: Soft, Normal Bowel Sounds - Rectal Exam Rectal Exam: Deferred - Extremities Exam Extremities Exam: Normal Inspection - Neurological Exam Neurological Exam: Alert, Awake, CN II-XII Intact, Oriented x3 - Psychiatric Exam Psychiatric exam: Normal Mood - Skin Skin Exam: Normal Color Assessment and Plan - Assessment and Plan (Free Text) Assessment: 73 to AA male with pmh/o htn, prostate cA, ckd-3, ? UTI with diarrhea x 2 weeks, weakness, shaking, decreased uop, difficulty to ambulate vert high bun/cr, confusion, low bicarb, high wbc now blood c/s + ve for GNR urine analysis c/w uti 1. GRAYSON on ckd-3 2. Gram negative sepsis, sec to E.coli, 3. high anaion gap met. acidosis 4. R/o uremic encephalopathy 5. Expressive aphasia 6. Paraoxysmal A fib s/p rt ij cath placement c/w iv abx ID consult with Dr. Brown appreciated, on merrem repeat cmp, po4 level in am for HD in am
--- NOTE | 2018-08-16 12:54 | CARD ---
APPROVED REPORT Date of service: 08/16/2018 EXAM: Two-dimensional and M-mode echocardiogram with Doppler and color Doppler. Other Information Quality : Rhythm : Atrial Fibrillation 2D DIMENSIONS IVSd0.9 (0.7-1.1cm)Aortic Root (2D)3.1 (2.0-3.7cm) LVDd4.0 (3.9-5.9cm)PWd1.0 (0.7-1.1cm) LA Stnieb93 (18-58mL)LVDs2.1 (2.5-4.0cm) FS (%) 47.3 %LVEF (%)79.2 (>50%) IVC0.00 cm M-Mode DIMENSIONS Left Atrium (MM)4.16 (2.5-4.0cm)IVSd0.98 (0.7-1.1cm) Aortic Root2.54 (2.2-3.7cm)LVDd3.19 (4.0-5.6cm) Aortic Cusp Exc.2.08 (1.5-2.0cm)PWd1.33 (0.7-1.1cm) FS (%) 51 %LVDs1.56 (2.0-3.8cm) TAPSE19.20 cmLVEF (%)83 (>50%) Mitral Valve MV E Almctxqz18.7cm/sMV A Hkpltncs873.2cm/sE/A ratio0.6 TDI Lateral E' Peak V10.93cm/sMedial E' Peak V5.25cm/sE/Lateral E'5.7 E/Medial E'11.9 Tricuspid Valve TR Peak Txybizew075hj/sTR Peak Gr.41fiOjRXZJ51ycNe LEFT VENTRICLE The left ventricle is normal size. There is borderline concentric left ventricular hypertrophy. The Ejection Fraction is >70%. There is normal LV segmental wall motion. Transmitral Doppler flow pattern is Grade I-abnormal relaxation pattern. RIGHT VENTRICLE The right ventricle is normal size. The right ventricular systolic function is normal. ATRIA The left atrium is mildly dilated. The right atrium size is normal. The interatrial septum is intact with no evidence for an atrial septal defect. AORTIC VALVE The aortic valve is normal in structure. No aortic regurgitation is present. MITRAL VALVE The mitral valve is normal in structure. There is no mitral valve regurgitation noted. TRICUSPID VALVE The tricuspid valve is normal in structure. trace tr.calculated pulmonary systolic pressures of 81 ? is not reliable. PULMONIC VALVE The pulmonary valve is normal in structure. GREAT VESSELS The aortic root is normal in size. The IVC is normal in size and collapses >50% with inspiration. PERICARDIAL EFFUSION There is no pericardial effusion. <Conclusion> The left ventricle is normal size. There is borderline concentric left ventricular hypertrophy. The Ejection Fraction is >70%. Transmitral Doppler flow pattern is Grade I-abnormal relaxation pattern. The left atrium is mildly dilated. trace tr.calculated pulmonary systolic pressures of 81 ? is not reliable. The aortic root is normal in size. The IVC is normal in size and collapses >50% with inspiration. There is no pericardial effusion. clinical correlation is adv.
--- NOTE | 2018-08-16 14:42 | CP.PCM.PN ---
Subjective - Date & Time of Evaluation Date of Evaluation: 08/16/18 Time of Evaluation: 11:00 - Subjective Subjective: PGY2 Neuro Note for Dr. Smith Patient seen and examined this morning at bedside. No acute events overnight. Patient is awake, alert and feeling well today without complaints. He is still experiencing right sided asterixis/shaking. Objective - Vital Signs/Intake and Output Vital Signs (last 24 hours): Temp Pulse Resp BP Pulse Ox 98.8 F 93 H 24 152/77 H 98 08/16/18 12:00 08/16/18 12:13 08/16/18 11:10 08/16/18 12:12 08/16/18 12:13 Intake and Output: 08/16/18 08/16/18 06:59 18:59 Intake Total 1240 750 Output Total 100 Balance 1140 750 - Medications Medications: Current Medications Apixaban (Eliquis) 2.5 mg PO BID [facility] Last Admin: 08/16/18 10:13 Dose: 2.5 mg Dextrose/Sodium Chloride (Dextrose 5%/0.9% Ns 1000 Ml) 1,000 mls @ 100 mls/hr IV .Q10H [facility] Last Admin: 08/16/18 04:59 Dose: Not Given Cefepime HCl (Maxipime Iv 1 Gm Premix) 1 gm in 50 mls @ 100 mls/hr IVPB Q24H [facility]; Protocol Last Admin: 08/15/18 17:55 Dose: 100 mls/hr - Labs Labs: 08/16/18 07:07 08/16/18 06:03 PT 16.7 SECONDS (9.7-12.2) H 08/16/18 07:07 INR 1.5 08/16/18 07:07 APTT 34 SECONDS (21-34) 08/16/18 07:07 - Constitutional Appears: Chronically Ill - Head Exam Head Exam: ATRAUMATIC, NORMAL INSPECTION, NORMOCEPHALIC - Eye Exam Eye Exam: EOMI, Normal appearance, PERRL - ENT Exam ENT Exam: Mucous Membranes Moist - Neck Exam Neck Exam: Normal Inspection - Respiratory Exam Respiratory Exam: NORMAL BREATHING PATTERN. absent: Accessory Muscle Use - Neurological Exam Neurological Exam: Alert, Awake, CN II-XII Intact Additional comments: Speech is fluid. Naming is intact, repetition is intact. Right sided asterixis/shaking. Finger to nose normal. Neg for pronator drift. - Psychiatric Exam Psychiatric exam: Normal Affect, Normal Mood - Skin Skin Exam: Dry, Warm Assessment and Plan (1) Ischemic stroke Assessment & Plan: An MRI of the brain and ECHO are still pending. Patient appears to be improving clinically. We recommend the followin. MRI brain without contrast and MRA of the head/neck without contrast 2. Eliquis 2.5 mg BID - for secondary stroke prevention to prox. afib 3. Echocardiogram 4. Check HbA1c, B12, lipid panel, folate, vitamin D levels 5. PT/OT eval and Speech therapy eval and treatment 6. Case management consult Case discussed with Dr. Luis Toledo PGY2 Status: Acute
[2018-08-16] MEDS: Cefepime IV 1 gm in Dextrose 1 GM/50 ML BAG IVPB SCH (17:42)
--- NOTE | 2018-08-16 18:27 | CP.PCM.PN ---
Subjective - Date & Time of Evaluation Date of Evaluation: 08/16/18 Time of Evaluation: 07:30 - Subjective Subjective: clinically same Objective - Vital Signs/Intake and Output Vital Signs (last 24 hours): Temp Pulse Resp BP Pulse Ox 99.2 F 80 20 158/79 H 98 08/16/18 15:00 08/16/18 15:00 08/16/18 15:00 08/16/18 15:00 08/16/18 15:00 Intake and Output: 08/16/18 08/16/18 06:59 18:59 Intake Total 1240 1050 Output Total 100 Balance 1140 1050 - Medications Medications: Current Medications Apixaban (Eliquis) 2.5 mg PO BID [facility] Last Admin: 08/16/18 17:41 Dose: 2.5 mg Dextrose/Sodium Chloride (Dextrose 5%/0.9% Ns 1000 Ml) 1,000 mls @ 100 mls/hr IV .Q10H [facility] Last Admin: 08/16/18 14:39 Dose: 100 mls/hr Cefepime HCl (Maxipime Iv 1 Gm Premix) 1 gm in 50 mls @ 100 mls/hr IVPB Q24H [facility]; Protocol Last Admin: 08/16/18 17:42 Dose: 100 mls/hr - Labs Labs: 08/16/18 07:07 08/16/18 06:03 PT 16.7 SECONDS (9.7-12.2) H 08/16/18 07:07 INR 1.5 08/16/18 07:07 APTT 34 SECONDS (21-34) 08/16/18 07:07
[2018-08-17 07:22] LABS: HEMOGLOBIN 8.2 g/dL (12.0-18.0); MEAN CELL VOLUME 65.3 fL (80.0-94.0); MEAN CORPUSCULAR HEMOGLOBIN 21.3 pg (27.0-31.0); MEAN CORPUSCULAR HGB CONC 32.6 g/dL (33.0-37.0); MEAN PLATELET VOLUME 9.1 fL (7.2-11.7); RBC 3.86 Mil/uL (4.40-5.90); RED CELL DISTRIBUTION WIDTH 17.6 % (11.5-14.5)
[2018-08-17 08:04] LABS: LDL CHOLESTEROL 52 mg/dL (0-129)
[2018-08-17 08:13] LABS: ALB/GLOB RATIO 0.7 (1.0-2.1); ALBUMIN 2.4 g/dL (3.5-5.0); ALT/SGPT 54 U/L (21-72); AST/SGOT 51 U/L (17-59); BLOOD UREA NITROGEN 96 mg/dL (9-20); CALCIUM 6.1 mg/dl (8.6-10.4); GFR NON-AFRICAN AMERICAN 5; HDL CHOLESTEROL 12 mg/dL (30-70)
[2018-08-17 08:55] LABS: FOLATE 12.1 ng/mL
--- NOTE | 2018-08-17 09:25 | CP.PCM.PN ---
Subjective - Date & Time of Evaluation Date of Evaluation: 08/17/18 Time of Evaluation: 09:25 - Subjective Subjective: pt is feeling better, no cough, no sob, no abd.pain, decreased uop for hd today Objective - Vital Signs/Intake and Output Vital Signs (last 24 hours): Temp Pulse Resp BP Pulse Ox 98.4 F 83 20 146/72 98 08/17/18 07:40 08/17/18 07:40 08/17/18 07:40 08/17/18 07:40 08/17/18 07:40 Intake and Output: 08/17/18 08/17/18 06:59 18:59 Intake Total 500 Balance 500 - Medications Medications: Current Medications Apixaban (Eliquis) 2.5 mg PO BID [facility] Last Admin: 08/16/18 17:41 Dose: 2.5 mg Epoetin Dariel (Procrit) 10,000 unit IV TTS [facility] Cefepime HCl (Maxipime Iv 1 Gm Premix) 1 gm in 50 mls @ 100 mls/hr IVPB Q24H [facility]; Protocol Last Admin: 08/16/18 17:42 Dose: 100 mls/hr - Labs Labs: 08/17/18 07:11 08/17/18 07:11 PT 16.7 SECONDS (9.7-12.2) H 08/16/18 07:07 INR 1.5 08/16/18 07:07 APTT 34 SECONDS (21-34) 08/16/18 07:07 - Constitutional Appears: Well, Non-toxic, No Acute Distress - Head Exam Head Exam: ATRAUMATIC, NORMAL INSPECTION - Eye Exam Eye Exam: EOMI, Normal appearance, PERRL Pupil Exam: NORMAL ACCOMODATION - ENT Exam ENT Exam: Mucous Membranes Moist - Neck Exam Neck Exam: Full ROM, Normal Inspection - Respiratory Exam Respiratory Exam: Clear to Ausculation Bilateral, NORMAL BREATHING PATTERN - Cardiovascular Exam Cardiovascular Exam: REGULAR RHYTHM, +S1, +S2 - GI/Abdominal Exam GI & Abdominal Exam: Soft, Normal Bowel Sounds - Extremities Exam Additional comments: no edema - Neurological Exam Neurological Exam: Alert, Awake, CN II-XII Intact, Oriented x3 - Psychiatric Exam Psychiatric exam: Normal Mood - Skin Skin Exam: Normal Color Assessment and Plan - Assessment and Plan (Free Text) Assessment: 73 to AA male with pmh/o htn, prostate cA, ckd-3, ? UTI with diarrhea x 2 weeks, weakness, shaking, decreased uop, difficulty to ambulate vert high bun/cr, confusion, low bicarb, high wbc now blood c/s + ve for GNR urine analysis c/w uti 1. GRAYSON on ckd-3 2. Gram negative sepsis, sec to E.coli, 3. high anaion gap met. acidosis 4. R/o uremic encephalopathy 5. Expressive aphasia 6. Paraoxysmal A fib 7. Anemia s/p rt ij cath placement c/w iv abx c/w iv abx, on merrem c/w epogen during hd for HD today PT/OT evaluation
[2018-08-17] MEDS: Epoetin Alfa 10,000 unit/ml Dialysis IV SCH (11:22)
--- NOTE | 2018-08-17 11:37 | CP.PCM.PN ---
Subjective - Date & Time of Evaluation Date of Evaluation: 08/17/18 Time of Evaluation: 07:30 - Subjective Subjective: clinically same Objective - Vital Signs/Intake and Output Vital Signs (last 24 hours): Temp Pulse Resp BP Pulse Ox 98.1 F 74 18 144/89 98 08/17/18 10:15 08/17/18 11:00 08/17/18 11:00 08/17/18 11:00 08/17/18 11:00 Intake and Output: 08/17/18 08/17/18 06:59 18:59 Intake Total 500 Balance 500 - Medications Medications: Current Medications Apixaban (Eliquis) 2.5 mg PO BID [facility] Last Admin: 08/17/18 10:14 Dose: Not Given Epoetin Dariel (Procrit) 10,000 unit IV TTS [facility] Last Admin: 08/17/18 11:22 Dose: 10,000 unit Cefepime HCl (Maxipime Iv 1 Gm Premix) 1 gm in 50 mls @ 100 mls/hr IVPB Q24H [facility]; Protocol Last Admin: 08/16/18 17:42 Dose: 100 mls/hr - Labs Labs: 08/17/18 07:11 08/17/18 07:11 PT 16.7 SECONDS (9.7-12.2) H 08/16/18 07:07 INR 1.5 08/16/18 07:07 APTT 34 SECONDS (21-34) 08/16/18 07:07 - Constitutional Appears: Well - Head Exam Head Exam: ATRAUMATIC, NORMAL INSPECTION, NORMOCEPHALIC - Eye Exam Eye Exam: EOMI, Normal appearance, PERRL Pupil Exam: NORMAL ACCOMODATION, PERRL - ENT Exam ENT Exam: Mucous Membranes Moist, Normal Exam - Neck Exam Neck Exam: Full ROM, Normal Inspection. absent: Lymphadenopathy - Respiratory Exam Respiratory Exam: Decreased Breath Sounds - Cardiovascular Exam Cardiovascular Exam: REGULAR RHYTHM, +S1, +S2 - GI/Abdominal Exam GI & Abdominal Exam: Soft, Diminished Bowel Sounds - Rectal Exam Rectal Exam: Deferred
--- NOTE | 2018-08-17 12:35 | CP.PCM.PN ---
Subjective - Date & Time of Evaluation Date of Evaluation: 08/17/18 Time of Evaluation: 09:00 - Subjective Subjective: iv rx renewed nad awake alert Objective - Vital Signs/Intake and Output Vital Signs (last 24 hours): Temp Pulse Resp BP Pulse Ox 98.1 F 76 17 140/87 96 08/17/18 10:15 08/17/18 11:30 08/17/18 11:30 08/17/18 11:30 08/17/18 11:30 Intake and Output: 08/17/18 08/17/18 06:59 18:59 Intake Total 500 Balance 500 - Medications Medications: Current Medications Apixaban (Eliquis) 2.5 mg PO BID [facility] Last Admin: 08/17/18 10:14 Dose: Not Given Epoetin Dariel (Procrit) 10,000 unit IV TTS [facility] Last Admin: 08/17/18 11:22 Dose: 10,000 unit Cefepime HCl (Maxipime Iv 1 Gm Premix) 1 gm in 50 mls @ 100 mls/hr IVPB Q24H [facility]; Protocol Last Admin: 08/16/18 17:42 Dose: 100 mls/hr - Labs Labs: 08/17/18 07:11 08/17/18 07:11 PT 16.7 SECONDS (9.7-12.2) H 08/16/18 07:07 INR 1.5 08/16/18 07:07 APTT 34 SECONDS (21-34) 08/16/18 07:07 - Constitutional Appears: Non-toxic, Chronically Ill - Head Exam Head Exam: NORMOCEPHALIC - Eye Exam Eye Exam: absent: Scleral icterus - ENT Exam ENT Exam: Mucous Membranes Dry - Neck Exam Neck Exam: absent: Lymphadenopathy - Respiratory Exam Respiratory Exam: Decreased Breath Sounds - Cardiovascular Exam Cardiovascular Exam: REGULAR RHYTHM - GI/Abdominal Exam GI & Abdominal Exam: Distended, Soft - Rectal Exam Rectal Exam: Deferred - Exam Exam: NORMAL INSPECTION - Extremities Exam Extremities Exam: absent: Pedal Edema - Back Exam Back Exam: absent: CVA tenderness (L), CVA tenderness (R) - Neurological Exam Neurological Exam: Alert, Awake, Oriented x3 Assessment and Plan (1) Prostate cancer Status: Acute (2) Dehydration Status: Acute (3) Diarrhea Status: Acute (4) UTI (urinary tract infection) Status: Acute (5) Sepsis Status: Acute (6) Acute renal failure Status: Acute (7) Altered mental state Status: Acute (8) Anemia Status: Acute (9) Metabolic acidosis Status: Acute
--- NOTE | 2018-08-17 14:28 | CP.PCM.PN ---
Subjective - Date & Time of Evaluation Date of Evaluation: 08/17/18 Time of Evaluation: 10:20 - Subjective Subjective: PGY2 Neuro Note for Dr. Smith Patient seen and examine this morning at bedside during dialysis. No acute events overnight. Patient feeling well with improving asterixis/shaking. Expressive aphasia has resolved. Objective - Vital Signs/Intake and Output Vital Signs (last 24 hours): Temp Pulse Resp BP Pulse Ox 98.1 F 79 18 153/71 H 98 08/17/18 10:15 08/17/18 13:00 08/17/18 13:00 08/17/18 13:00 08/17/18 13:00 Intake and Output: 08/17/18 08/17/18 06:59 18:59 Intake Total 500 Balance 500 - Medications Medications: Current Medications Apixaban (Eliquis) 2.5 mg PO BID [facility] Last Admin: 08/17/18 10:14 Dose: Not Given Epoetin Dariel (Procrit) 10,000 unit IV TTS [facility] Last Admin: 08/17/18 11:22 Dose: 10,000 unit Cefepime HCl (Maxipime Iv 1 Gm Premix) 1 gm in 50 mls @ 100 mls/hr IVPB Q24H [facility]; Protocol Last Admin: 08/16/18 17:42 Dose: 100 mls/hr - Labs Labs: 08/17/18 07:11 08/17/18 07:11 PT 16.7 SECONDS (9.7-12.2) H 08/16/18 07:07 INR 1.5 08/16/18 07:07 APTT 34 SECONDS (21-34) 08/16/18 07:07 - Constitutional Appears: Chronically Ill - Head Exam Head Exam: ATRAUMATIC, NORMAL INSPECTION, NORMOCEPHALIC - Eye Exam Eye Exam: EOMI, Normal appearance, PERRL - ENT Exam ENT Exam: Mucous Membranes Moist - Neck Exam Additional comments: R IJ dialysis cath - Respiratory Exam Respiratory Exam: NORMAL BREATHING PATTERN. absent: Accessory Muscle Use - Neurological Exam Neurological Exam: Alert, Awake, CN II-XII Intact, Oriented x3 Additional comments: Speech is fluid. Naming is intact, repetition is intact. Expressive aphasia resolved. Right sided asterixis/shaking improving. Finger to nose normal. Neg for pronator drift. - Psychiatric Exam Psychiatric exam: Normal Affect, Normal Mood - Skin Skin Exam: Dry, Warm Assessment and Plan (1) Ischemic stroke Assessment & Plan: An MRI of the brain is still pending, patient scheduled to go to MRI after dialysis today. ECHO shows afib with normal EF. Expressive aphasia resolved. Right sided asterixis/shaking improving. We recommend the followin. MRI brain without contrast pending 2. Eliquis 2.5 mg BID - for secondary stroke prevention to prox. afib 3. PT/OT eval and Speech therapy eval and treatment 4. Case management consult Will continue to follow. Thank you for the consult. Case discussed with Dr. Luis Toledo PGY2 Status: Acute
--- NOTE | 2018-08-17 16:23 | CP.PCM.PN ---
Subjective - Date & Time of Evaluation Date of Evaluation: 08/17/18 Objective - Vital Signs/Intake and Output Vital Signs (last 24 hours): Temp Pulse Resp BP Pulse Ox 98.1 F 79 18 153/71 H 98 08/17/18 10:15 08/17/18 13:00 08/17/18 13:00 08/17/18 13:00 08/17/18 13:00 Intake and Output: 08/17/18 08/17/18 06:59 18:59 Intake Total 500 Balance 500 - Medications Medications: Current Medications Apixaban (Eliquis) 2.5 mg PO BID [facility] Last Admin: 08/17/18 10:14 Dose: Not Given Epoetin Dariel (Procrit) 10,000 unit IV TTS [facility] Last Admin: 08/17/18 11:22 Dose: 10,000 unit Cefepime HCl (Maxipime Iv 1 Gm Premix) 1 gm in 50 mls @ 100 mls/hr IVPB Q24H [facility]; Protocol Last Admin: 08/16/18 17:42 Dose: 100 mls/hr - Labs Labs: 08/17/18 07:11 08/17/18 07:11 PT 16.7 SECONDS (9.7-12.2) H 08/16/18 07:07 INR 1.5 08/16/18 07:07 APTT 34 SECONDS (21-34) 08/16/18 07:07 Assessment and Plan - Assessment and Plan (Free Text) Plan: mri after hd today neuro note seen spoke to daughterawiting for hd chair palcement
[2018-08-17] MEDS: Cefepime IV 1 gm in Dextrose 1 GM/50 ML BAG IVPB SCH (17:04)
[2018-08-18 02:09] LABS: HEMOGLOBIN A 93.1 Percent (>96.0); HEMOGLOBIN A2 5.9 Percent (1.8-3.5)
--- NOTE | 2018-08-18 10:16 | CP.PCM.PN ---
Subjective - Date & Time of Evaluation Date of Evaluation: 08/18/18 Time of Evaluation: 10:16 - Subjective Subjective: pt is feeling better, no sob, no cp, s/p accidental pulling of pari catheter by patient during sleep Objective - Vital Signs/Intake and Output Vital Signs (last 24 hours): Temp Pulse Resp BP Pulse Ox 98.8 F 85 20 131/65 99 08/18/18 08:07 08/18/18 08:07 08/18/18 08:07 08/18/18 08:07 08/18/18 08:07 Intake and Output: 08/18/18 08/18/18 06:59 18:59 Intake Total 520 Balance 520 - Medications Medications: Current Medications Apixaban (Eliquis) 2.5 mg PO BID [facility] Last Admin: 08/18/18 09:38 Dose: Not Given Epoetin Dariel (Procrit) 10,000 unit IV TTS [facility] Last Admin: 08/17/18 11:22 Dose: 10,000 unit Cefepime HCl (Maxipime Iv 1 Gm Premix) 1 gm in 50 mls @ 100 mls/hr IVPB Q24H [facility]; Protocol Last Admin: 08/17/18 17:04 Dose: 100 mls/hr - Labs Labs: 08/17/18 07:11 08/17/18 07:11 PT 16.7 SECONDS (9.7-12.2) H 08/16/18 07:07 INR 1.5 08/16/18 07:07 APTT 34 SECONDS (21-34) 08/16/18 07:07 - Constitutional Appears: Well, Non-toxic, No Acute Distress - Head Exam Head Exam: ATRAUMATIC, NORMAL INSPECTION - Eye Exam Eye Exam: EOMI, Normal appearance, PERRL Pupil Exam: NORMAL ACCOMODATION - ENT Exam ENT Exam: Mucous Membranes Moist - Neck Exam Neck Exam: Full ROM, Normal Inspection - Respiratory Exam Respiratory Exam: Clear to Ausculation Bilateral, NORMAL BREATHING PATTERN - Cardiovascular Exam Cardiovascular Exam: REGULAR RHYTHM, +S1, +S2 - GI/Abdominal Exam GI & Abdominal Exam: Soft, Normal Bowel Sounds - Rectal Exam Rectal Exam: Deferred - Extremities Exam Extremities Exam: Normal Inspection Additional comments: no edema - Neurological Exam Neurological Exam: Alert, Awake, CN II-XII Intact, Oriented x3 - Skin Skin Exam: Normal Color Assessment and Plan - Assessment and Plan (Free Text) Assessment: 73 to AA male with pmh/o htn, prostate cA, ckd-3, ? UTI with diarrhea x 2 weeks, weakness, shaking, decreased uop, difficulty to ambulate vert high bun/cr, confusion, low bicarb, high wbc now blood c/s + ve for GNR urine analysis c/w uti 1. GRAYSON on ckd-3 2. Gram negative sepsis, sec to E.coli, 3. high anaion gap met. acidosis 4. R/o uremic encephalopathy 5. Expressive aphasia 6. Paraoxysmal A fib 7. Anemia s/p rt ijv cath dislodged c/w iv abx c/w iv abx, on merrem c/w epogen during hd for perma cath placement today PT/OT evaluation, f/u with neurology
--- NOTE | 2018-08-18 10:24 | CP.PCM.CON ---
History of Present Illness - History of Present Illness History of Present Illness: VASCULAR SURGERY CONSULT NOTE FOR DR. MOE Patient is a 73 YO M with PMHx of ESRD on dialysis (T/T/S), prostate cancer, HTN, and multiple TIA, who came to the ED and was found to have GRAYSON, E. coli UTI and E. coli + blood cx. Pt also found to have paroxysmal A fib and was started on Eliquis BID by cardiology. Vascular surgery consult placed to Dr. Moe for displaced Shiley. He initially came to [facility] with complaint of nausea and vomiting 4 days ago. Right IJ Shiley placed by Dr. Roberts on 08/13/18 in the ICU and pt has been receiving dialysis. This morning dialysis nurse noted patient's shiley was displaced and suture was cut. Patient reported pulling at the catheter in his sleep due to discomfort at the site last night. He is still making small amounts of urine, denies current nausea, vomiting, diarrhea, constipation, hematuria, SOB, palpitations, chest tightness or numbness or tingling on extremities. Patient is poor historian, unable to provide appropriate timeline or details of illness. PMH: ESRD on dialysis, prostate cancer, HTN, TIA PSH: Permacath placement Social: Lives alone at home, denies tobacco, alcohol and recreational drug use. Fam Hx: Denies ALL: NKDA Review of Systems - Review of Systems All systems: reviewed and no additional remarkable complaints except (as per HPI) Past Patient History - Past Medical History & Family History Past Medical History?: Yes - Past Social History Smoking Status: Never Smoked - CARDIAC Hx Hypertension: Yes - RENAL Hx Chronic Kidney Disease: Yes - MUSCULOSKELETAL/RHEUMATOLOGICAL Hx Falls: No (denies) - GASTROINTESTINAL Hx Gastritis: Yes - GENITOURINARY/GYNECOLOGICAL Hx Prostate Cancer: Yes (per ER record) Hx Urinary Tract Infection: Yes - PSYCHIATRIC Hx Substance Use: No Meds Allergies/Adverse Reactions: Allergies Allergy/AdvReac Type Severity Reaction Status Date / Time No Known Allergies Allergy Verified 04/20/14 15:54 - Medications Medications: Current Medications Apixaban (Eliquis) 2.5 mg PO BID [facility] Last Admin: 08/18/18 09:38 Dose: Not Given Epoetin Dariel (Procrit) 10,000 unit IV TTS [facility] Last Admin: 08/17/18 11:22 Dose: 10,000 unit Cefepime HCl (Maxipime Iv 1 Gm Premix) 1 gm in 50 mls @ 100 mls/hr IVPB Q24H [facility]; Protocol Last Admin: 08/17/18 17:04 Dose: 100 mls/hr Physical Exam - Constitutional Appears: Non-toxic, No Acute Distress - Head Exam Head Exam: ATRAUMATIC, NORMAL INSPECTION - Neck Exam Additional comments: R IJ shiley with catheter mostly pulled out but distal end remains inside No bleeding, discharge or erythema - Respiratory Exam Respiratory Exam: NORMAL BREATHING PATTERN. absent: Respiratory Distress - Cardiovascular Exam Cardiovascular Exam: +S1, +S2 - Neurological Exam Neurological exam: Alert, Oriented x3 (oriented to person, place, and month) - Psychiatric Exam Psychiatric exam: Normal Affect, Normal Mood - Skin Skin Exam: Dry, Warm Results - Vital Signs Recent Vital Signs: Last Vital Signs Temp 98.8 F 08/18/18 08:07 Pulse 85 08/18/18 08:07 Resp 20 08/18/18 08:07 BP 131/65 08/18/18 08:07 Pulse Ox 99 08/18/18 08:07 - Labs Result Diagrams: 08/17/18 07:11 08/17/18 07:11 Labs: Laboratory Results - last 24 hr 08/14/18 11:48 Hemoglobin A 93.1 L Hemoglobin A2 5.9 H Hemoglobin C 0.0 Hemoglobin F () <1.0 Hemoglobin S 0.0 Variant Hemoglobin 0.0 Hemoglobinopathy Interp See note Assessment & Plan - Assessment and Plan (Free Text) Assessment: 73 YO M with PMHx of ESRD on dialysis (T/T/S), prostate cancer, HTN, and multiple TIA, who was found to have GRAYSON, UTI, bacteremia, paroxysmal A fib, pt had Right IJ shiley placed which has now become dislodged. Plan for OR today for permacath placement - OR today for permacath placement - NPO - Alexsandra held today - Procedure explained to pt, including all risks and benefits, all questions were answered, written consent was obtained - Discussed plan with Dr. Marlys Mercado PGY-4
--- NOTE | 2018-08-18 11:36 | RAD ---
Date of service: 08/18/2018 HISTORY: placement pf ij permcath COMPARISON: 08/13/2018 FINDINGS: LUNGS: Opacity at both lung bases. Possible early pulmonary edema. PLEURA: No significant pleural effusion identified, no pneumothorax apparent. CARDIOVASCULAR: No aortic atherosclerotic calcification present. Normal heart size. Congestive change noted. Right internal jugular central venous catheter appears to turn 180 degrees at its tip in the region of the superior vena cava. Radiographic evaluation is somewhat limited. Consider repositioning or replacement. OSSEOUS STRUCTURES: No significant abnormalities. VISUALIZED UPPER ABDOMEN: Normal. OTHER FINDINGS: None. IMPRESSION: There is a band at the tip of the right internal jugular central venous catheter for which repositioning or replacement should be considered. Congestive change noted. Opacities at both lung bases may reflect pulmonary edema. Correlate clinically. Position of the internal jugular catheter was discussed by telephone with the patient's nurse, Jackie, at 11:30 a.m. on 08/18/2018.
[2018-08-18] MEDS ORDERED: ceFAZolin IV 1 gm in Dextrose 0 GM/0 ML BAG IVPB ONE (12:29)
[2018-08-18] MEDS ORDERED: Lidocaine Hydrochloride 10 ML INJ ONE (12:29)
[2018-08-18] MEDS ORDERED: HEPARIN-NS 5,000 UNITS/500 ML 5,000 UNIT/500 ML BAG IV ONE (12:30)
[2018-08-18] MEDS ORDERED: Iodixanol 320 MG/ML 200 ML BOTTLE IV ONE (12:30)
--- NOTE | 2018-08-18 14:02 | CP.PCM.PN ---
Subjective - Date & Time of Evaluation Date of Evaluation: 08/18/18 Time of Evaluation: 07:30 - Subjective Subjective: clinically same Objective - Vital Signs/Intake and Output Vital Signs (last 24 hours): Temp Pulse Resp BP Pulse Ox 98.8 F 85 20 131/65 99 08/18/18 08:07 08/18/18 08:07 08/18/18 08:07 08/18/18 08:07 08/18/18 08:07 Intake and Output: 08/18/18 08/18/18 06:59 18:59 Intake Total 520 60 Balance 520 60 - Medications Medications: Current Medications Apixaban (Eliquis) 2.5 mg PO BID [facility] Last Admin: 08/18/18 09:38 Dose: Not Given Epoetin Dariel (Procrit) 10,000 unit IV TTS [facility] Last Admin: 08/17/18 11:22 Dose: 10,000 unit Cefepime HCl (Maxipime Iv 1 Gm Premix) 1 gm in 50 mls @ 100 mls/hr IVPB Q24H [facility]; Protocol Last Admin: 08/17/18 17:04 Dose: 100 mls/hr - Labs Labs: 08/17/18 07:11 08/17/18 07:11 PT 16.7 SECONDS (9.7-12.2) H 08/16/18 07:07 INR 1.5 08/16/18 07:07 APTT 34 SECONDS (21-34) 08/16/18 07:07 - Constitutional Appears: Well - Head Exam Head Exam: ATRAUMATIC, NORMAL INSPECTION, NORMOCEPHALIC - Eye Exam Eye Exam: EOMI, Normal appearance, PERRL Pupil Exam: NORMAL ACCOMODATION, PERRL - ENT Exam ENT Exam: Mucous Membranes Moist, Normal Exam - Neck Exam Neck Exam: Full ROM, Normal Inspection. absent: Lymphadenopathy - Respiratory Exam Respiratory Exam: Decreased Breath Sounds - Cardiovascular Exam Cardiovascular Exam: REGULAR RHYTHM, +S1, +S2 - GI/Abdominal Exam GI & Abdominal Exam: Soft, Diminished Bowel Sounds - Rectal Exam Rectal Exam: Deferred
--- NOTE | 2018-08-18 14:17 | PCM.SURG1 ---
Surgeon's Initial Post Op Note - Surgeon's Notes Surgeon: Dr. Frankel Wrapper And Preserver: valencia Clay PGY3 Type of Anesthesia: Local Anesthesia Administered By: Herminio Pre-Operative Diagnosis: Displaced Permacath Operative Findings: HD catheter in R IJ Post-Operative Diagnosis: SAme Operation Performed: Replacement of HD catheter. Permacath on RIJ Specimen/Specimens Removed: Non e Estimated Blood Loss: EBL {In ML}: 20 Blood Products Given: N/A Drains Used: No Drains Post-Op Condition: Good Date of Surgery/Procedure: 08/18/18 Time of Surgery/Procedure: 14:16
--- NOTE | 2018-08-18 15:03 | RAD ---
Date of service: 08/18/2018 HISTORY: permacath in pacu COMPARISON: Chest radiograph 08/18/2018 9:23 a.m.. FINDINGS: LUNGS: No active pulmonary disease. Interval permanent right central venous dialysis catheter is in position terminating at the distal superior vena cava and cavoatrial junction by an apparent right internal jugular approach. PLEURA: No significant pleural effusion identified, no pneumothorax apparent. CARDIOVASCULAR: No aortic atherosclerotic calcification present. Normal cardiac size. No pulmonary vascular congestion. OSSEOUS STRUCTURES: No significant abnormalities. VISUALIZED UPPER ABDOMEN: Normal. OTHER FINDINGS: None. IMPRESSION: No active disease. Interval permanent central venous dialysis catheter deployment.
--- NOTE | 2018-08-18 16:40 | CP.PCM.PN ---
Subjective - Date & Time of Evaluation Date of Evaluation: 08/18/18 Time of Evaluation: 11:25 - Subjective Subjective: PGY2 Neurology Note for Dr. Smith Patient seen and examined this morning at bedside. Patient accidentally pulled out most of his dialysis catheter overnight, while in his sleep. He is to be re- evaluated by Dr. Frankel the surgery team today. Otherwise, patient states he is feeling well and has no complaints. Speech is improved and shaking is improving. Objective - Vital Signs/Intake and Output Vital Signs (last 24 hours): Temp Pulse Resp BP Pulse Ox 98.0 F 79 20 144/69 97 08/18/18 16:00 08/18/18 16:00 08/18/18 16:00 08/18/18 16:00 08/18/18 16:00 Intake and Output: 08/18/18 08/18/18 06:59 18:59 Intake Total 520 300 Balance 520 300 - Medications Medications: Current Medications Acetaminophen (Tylenol 325mg Tab) 650 mg PO Q6 PRN PRN Reason: pain, fever Apixaban (Eliquis) 2.5 mg PO BID [facility] Last Admin: 08/18/18 09:38 Dose: Not Given Epoetin Dariel (Procrit) 10,000 unit IV TTS [facility] Last Admin: 08/17/18 11:22 Dose: 10,000 unit Cefepime HCl (Maxipime Iv 1 Gm Premix) 1 gm in 50 mls @ 100 mls/hr IVPB Q24H [facility]; Protocol Last Admin: 08/17/18 17:04 Dose: 100 mls/hr - Labs Labs: 08/17/18 07:11 08/17/18 07:11 PT 16.7 SECONDS (9.7-12.2) H 08/16/18 07:07 INR 1.5 08/16/18 07:07 APTT 34 SECONDS (21-34) 08/16/18 07:07 - Additional Findings Additional findings: - Constitutional Appears: Chronically Ill - Head Exam Head Exam: ATRAUMATIC, NORMAL INSPECTION, NORMOCEPHALIC - Eye Exam Eye Exam: EOMI, Normal appearance, PERRL - ENT Exam ENT Exam: Mucous Membranes Moist - Neck Exam Additional comments: R IJ dialysis cath - Respiratory Exam Respiratory Exam: NORMAL BREATHING PATTERN. absent: Accessory Muscle Use - Neurological Exam Neurological Exam: Alert, Awake, CN II-XII Intact, Oriented x3 Additional comments: Speech is fluid. Naming is intact, repetition is intact. Expressive aphasia resolved. Right sided asterixis/shaking improving compared to yesterday. Finger to nose normal. Neg for pronator drift. - Psychiatric Exam Psychiatric exam: Normal Affect, Normal Mood - Skin Skin Exam: Dry, Warm Assessment and Plan (1) Ischemic stroke Assessment & Plan: An MRI of the brain is still pending, patient did not go to MRI after dialysis today for an unknown reason. Right sided asterixis/shaking improving compared to yesterday. We recommend the followin. MRI brain without contrast pending 2. Ammonia level 3. Eliquis 2.5 mg BID - for secondary stroke prevention to prox. afib 4. PT/OT eval and Speech therapy eval and treatment 5. Case management consult Will continue to follow. Thank you for the consult. Case discussed with Dr. Luis Toledo PGY2 Status: Acute
[2018-08-18] MEDS: Cefepime IV 1 gm in Dextrose 1 GM/50 ML BAG IVPB SCH (17:47)
--- NOTE | 2018-08-18 19:41 | CP.PCM.PN ---
Subjective - Date & Time of Evaluation Date of Evaluation: 08/18/18 Time of Evaluation: 08:00 - Subjective Subjective: afeb on cefepime iv awake alert nad Objective - Vital Signs/Intake and Output Vital Signs (last 24 hours): Temp Pulse Resp BP Pulse Ox 98.0 F 79 20 144/69 97 08/18/18 16:00 08/18/18 16:00 08/18/18 16:00 08/18/18 16:00 08/18/18 16:00 Intake and Output: 08/18/18 08/19/18 18:59 06:59 Intake Total 300 Balance 300 - Medications Medications: Current Medications Acetaminophen (Tylenol 325mg Tab) 650 mg PO Q6 PRN PRN Reason: pain, fever Last Admin: 08/18/18 15:45 Dose: 650 mg Apixaban (Eliquis) 2.5 mg PO BID [facility] Last Admin: 08/18/18 09:38 Dose: Not Given Epoetin Dariel (Procrit) 10,000 unit IV TTS [facility] Last Admin: 08/17/18 11:22 Dose: 10,000 unit Cefepime HCl (Maxipime Iv 1 Gm Premix) 1 gm in 50 mls @ 100 mls/hr IVPB Q24H [facility]; Protocol Last Admin: 08/18/18 17:47 Dose: 100 mls/hr - Labs Labs: 08/17/18 07:11 08/17/18 07:11 PT 16.7 SECONDS (9.7-12.2) H 08/16/18 07:07 INR 1.5 08/16/18 07:07 APTT 34 SECONDS (21-34) 08/16/18 07:07 - Constitutional Appears: Non-toxic, Chronically Ill - Head Exam Head Exam: NORMOCEPHALIC - Eye Exam Eye Exam: absent: Scleral icterus - ENT Exam ENT Exam: Mucous Membranes Dry - Neck Exam Neck Exam: absent: Lymphadenopathy - Respiratory Exam Respiratory Exam: Decreased Breath Sounds - Cardiovascular Exam Cardiovascular Exam: REGULAR RHYTHM - GI/Abdominal Exam GI & Abdominal Exam: Distended, Soft - Rectal Exam Rectal Exam: Deferred - Exam Exam: NORMAL INSPECTION - Extremities Exam Extremities Exam: absent: Pedal Edema - Back Exam Back Exam: absent: CVA tenderness (L), CVA tenderness (R) - Neurological Exam Neurological Exam: Alert, Awake Assessment and Plan (1) Prostate cancer Status: Acute (2) Dehydration Status: Acute (3) Diarrhea Status: Acute (4) UTI (urinary tract infection) Status: Acute (5) Sepsis Status: Acute (6) Acute renal failure Status: Acute (7) Altered mental state Status: Acute (8) Anemia Status: Acute (9) Metabolic acidosis Status: Acute
--- NOTE | 2018-08-18 21:50 | OP ---
PROCEDURE DATE: 08/18/2018 PREOPERATIVE DIAGNOSIS: Renal failure, falling out catheter. POSTOPERATIVE DIAGNOSIS: Renal failure, falling out catheter. PROCEDURE CARRIED OUT: Removal of dialysis catheter and placement of a new right Perma-Cath. SURGEON: Sebastian Frankel Jr., MD. ESTIMATING MANAGER: . ANESTHESIOLOGIST: Dr. Durham. TYPE OF ANESTHESIA: Local with monitoring. OPERATIVE FINDINGS: The patient is a middle-aged man with neurological symptoms now found to need a Perma-Cath. He previously had a temporary catheter which he has had his neck. The old catheter was secured, a wire placed through it. We then prepped and draped. The patient's antibiotics were rescheduled and we placed a Perma-Cath type over the previously placed wire and established it with excellent flow, secured it to the skin. No ultrasound was used. Blood loss during procedure was 20 mL. Operation carried out is Perma-Cath right jugular vein. Sebastian Frankel Jr., MD
[2018-08-19] MEDS ORDERED: Metoprolol 1 mg/ml Inj IVP ONE (10:20)
--- NOTE | 2018-08-19 12:53 | CP.PCM.PN ---
Subjective - Date & Time of Evaluation Date of Evaluation: 08/19/18 Time of Evaluation: 12:52 - Subjective Subjective: pt was found to be hypotensive and tachycardic prior to initiation hemodialysis this am and pt was sent back to floor to stabilize the pt. now pt is in telemetry. pt was in A. Fib during his icu stay pt is slightly confused, anxious today Objective - Vital Signs/Intake and Output Vital Signs (last 24 hours): Temp Pulse Resp BP Pulse Ox 98.7 F 83 20 156/75 H 97 08/19/18 08:09 08/19/18 08:09 08/19/18 08:09 08/19/18 08:09 08/19/18 08:09 Intake and Output: 08/19/18 08/19/18 06:59 18:59 Intake Total 180 Balance 180 - Medications Medications: Current Medications Acetaminophen (Tylenol 325mg Tab) 650 mg PO Q6 PRN PRN Reason: pain, fever Last Admin: 08/18/18 15:45 Dose: 650 mg Apixaban (Eliquis) 2.5 mg PO BID [facility] Last Admin: 08/18/18 09:38 Dose: Not Given Epoetin Dariel (Procrit) 10,000 unit IV TTS [facility] Last Admin: 08/17/18 11:22 Dose: 10,000 unit Cefepime HCl (Maxipime Iv 1 Gm Premix) 1 gm in 50 mls @ 100 mls/hr IVPB Q24H [facility]; Protocol Last Admin: 08/18/18 17:47 Dose: 100 mls/hr - Labs Labs: 08/17/18 07:11 08/17/18 07:11 PT 16.7 SECONDS (9.7-12.2) H 08/16/18 07:07 INR 1.5 08/16/18 07:07 APTT 34 SECONDS (21-34) 08/16/18 07:07 - Constitutional Appears: Well, Non-toxic, Toxic - Head Exam Head Exam: ATRAUMATIC, NORMAL INSPECTION - Eye Exam Eye Exam: EOMI, Normal appearance, PERRL Pupil Exam: NORMAL ACCOMODATION - ENT Exam ENT Exam: Mucous Membranes Moist - Respiratory Exam Respiratory Exam: Clear to Ausculation Bilateral, NORMAL BREATHING PATTERN - Cardiovascular Exam Cardiovascular Exam: Irregular Rhythm, +S1, +S2 - GI/Abdominal Exam GI & Abdominal Exam: Soft, Normal Bowel Sounds - Rectal Exam Rectal Exam: Deferred - Extremities Exam Additional comments: no edema of legs - Neurological Exam Neurological Exam: Alert, Awake, CN II-XII Intact Additional comments: slightly confused, anxious, oriented x 2 - Psychiatric Exam Psychiatric exam: Anxious - Skin Skin Exam: Normal Color Assessment and Plan - Assessment and Plan (Free Text) Assessment: 73 to AA male with pmh/o htn, prostate cA, ckd-3, ? UTI with diarrhea x 2 weeks, weakness, shaking, decreased uop, difficulty to ambulate vert high bun/cr, confusion, low bicarb, high wbc now blood c/s + ve for GNR urine analysis c/w uti 1. GRAYSON on ckd-3 2. Gram negative sepsis, sec to E.coli, 3. high anaion gap met. acidosis 4. R/o uremic encephalopathy 5. Expressive aphasia 6. Paraoxysmal A fib 7. Anemia s/p rt ijv perma cath placement yesterday c/w iv abx c/w iv abx, on merrem c/w epogen during hd PT/OT evaluation, f/u with neurology f/u with cardiology, continue tele monitoring case d/w Dr. Barboza, pt can get ct Angio prior to hemodialysis today to r/o PE
[2018-08-19] MEDS ORDERED: Iodixanol 320 MG/ML 100 ML BOTTLE IV ONE (14:16)
[2018-08-19] MEDS: Epoetin Alfa 10,000 unit/ml Dialysis IV SCH (14:45)
--- NOTE | 2018-08-19 15:32 | CT ---
Date of service: 08/19/2018 PROCEDURE: CT Chest with contrast (Pulmonary Angiogram) HISTORY: r/o PE,chest pain and tachycardia COMPARISON: None available. TECHNIQUE: Axial computed tomography images were obtained of the chest in the pulmonary arterial phase of enhancement. Coronal and sagittal reformatted images were created and reviewed. Intravenous contrast dose: 100 mL of Visipaque 320 intravenously. Radiation dose: Total exam DLP = 444.02 mGy-cm. This CT exam was performed using one or more of the following dose reduction techniques: Automated exposure control, adjustment of the mA and/or kV according to patient size, and/or use of iterative reconstruction technique. FINDINGS: PULMONARY ARTERIES: Unremarkable. No pulmonary embolism. AORTA: No acute findings. No thoracic aortic aneurysm. Diffuse aortic atherosclerotic calcification without significant mural plaque present. LUNGS: There is a small focal airspace consolidation at the lingula may represent atelectasis or pneumonia. The possibility of neoplasm is less likely. Bilateral lower lobe atelectasis are noted due to pleural effusion. PLEURAL SPACES: Moderate to large bilateral pleural effusions. HEART: The heart is moderately enlarged. No evidence of pericardial effusion. LYMPH NODES: No lymphadenopathy. BONES, CHEST WALL: There are scattered sclerotic bony lesions suspicious for osseous metastasis likely from the patient's known history of prostate cancer. No fracture or destructive lesion OTHER FINDINGS: Unremarkable. IMPRESSION: No evidence of acute pulmonary embolus. Cardiomegaly. Moderate to large bilateral pleural effusions. Small airspace consolidation at the lingula may represent atelectasis pneumonia or less likely neoplasm.
--- NOTE | 2018-08-19 17:54 | CP.PCM.PN ---
Subjective - Date & Time of Evaluation Date of Evaluation: 08/19/18 Time of Evaluation: 07:00 - Subjective Subjective: VASCULAR SURGERY PROGRESS NOTE FOR DR. MOE Patient seen and examined at bedside. Denies pain after permacath placement yesterday. Getting dialysis today. Objective - Vital Signs/Intake and Output Vital Signs (last 24 hours): Temp Pulse Resp BP Pulse Ox 97.4 F L 73 18 148/70 100 08/19/18 17:30 08/19/18 17:30 08/19/18 17:30 08/19/18 17:30 08/19/18 17:30 Intake and Output: 08/19/18 08/19/18 06:59 18:59 Intake Total 180 Balance 180 - Medications Medications: Current Medications Acetaminophen (Tylenol 325mg Tab) 650 mg PO Q6 PRN PRN Reason: pain, fever Last Admin: 08/19/18 16:41 Dose: 650 mg Apixaban (Eliquis) 2.5 mg PO BID [facility] Last Admin: 08/18/18 09:38 Dose: Not Given Epoetin Dariel (Procrit) 10,000 unit IV TTS [facility] Last Admin: 08/19/18 14:45 Dose: 10,000 unit Cefepime HCl (Maxipime Iv 1 Gm Premix) 1 gm in 50 mls @ 100 mls/hr IVPB Q24H [facility]; Protocol Last Admin: 08/18/18 17:47 Dose: 100 mls/hr - Labs Labs: 08/17/18 07:11 08/17/18 07:11 PT 16.7 SECONDS (9.7-12.2) H 08/16/18 07:07 INR 1.5 08/16/18 07:07 APTT 34 SECONDS (21-34) 08/16/18 07:07 - Constitutional Appears: Non-toxic, No Acute Distress - Head Exam Head Exam: ATRAUMATIC, NORMAL INSPECTION - Neck Exam Additional comments: Right Permacath, no edema, ecchymosis. Dressing clean/dry/intact - Respiratory Exam Respiratory Exam: NORMAL BREATHING PATTERN. absent: Respiratory Distress - Cardiovascular Exam Cardiovascular Exam: +S1, +S2 - GI/Abdominal Exam GI & Abdominal Exam: Soft. absent: Distended, Firm, Tenderness - Neurological Exam Neurological Exam: Alert, Awake, Oriented x3 - Psychiatric Exam Psychiatric exam: Normal Affect, Normal Mood Assessment and Plan - Assessment and Plan (Free Text) Assessment: 73 YO M with PMHx of ESRD on dialysis (T/T/S), prostate cancer, HTN, and multiple TIA, who was found to have GRAYSON, UTI, bacteremia, paroxysmal A fib, now s/p Right permacath POD#1 - Resume Eliquis - Vein mapping ordered for AV fistula - Will plan AV fistula when vein mapping done - Discussed plan with Dr. Marlys Mercado PGY-4
[2018-08-19] MEDS: Cefepime IV 1 gm in Dextrose 1 GM/50 ML BAG IVPB SCH (19:28)
--- NOTE | 2018-08-19 19:44 | CP.PCM.PN ---
Subjective - Date & Time of Evaluation Date of Evaluation: 08/19/18 Time of Evaluation: 11:15 - Subjective Subjective: clinically same Objective - Vital Signs/Intake and Output Vital Signs (last 24 hours): Temp Pulse Resp BP Pulse Ox 98.2 F 87 18 140/77 97 08/19/18 18:21 08/19/18 18:21 08/19/18 18:21 08/19/18 18:21 08/19/18 18:21 - Medications Medications: Current Medications Acetaminophen (Tylenol 325mg Tab) 650 mg PO Q6 PRN PRN Reason: pain, fever Last Admin: 08/19/18 16:41 Dose: 650 mg Apixaban (Eliquis) 2.5 mg PO BID [facility] Last Admin: 08/19/18 19:29 Dose: 2.5 mg Epoetin Dariel (Procrit) 10,000 unit IV TTS [facility] Last Admin: 08/19/18 14:45 Dose: 10,000 unit Cefepime HCl (Maxipime Iv 1 Gm Premix) 1 gm in 50 mls @ 100 mls/hr IVPB Q[facility]H [facility]; Protocol Last Admin: 08/19/18 19:28 Dose: 100 mls/hr - Labs Labs: 08/17/18 07:11 08/17/18 07:11 PT 16.7 SECONDS (9.7-12.2) H 08/16/18 07:07 INR 1.5 08/16/18 07:07 APTT 34 SECONDS (21-34) 08/16/18 07:07 - Constitutional Appears: Well - Head Exam Head Exam: ATRAUMATIC, NORMAL INSPECTION, NORMOCEPHALIC - Eye Exam Eye Exam: EOMI, Normal appearance, PERRL Pupil Exam: NORMAL ACCOMODATION, PERRL - ENT Exam ENT Exam: Mucous Membranes Moist, Normal Exam - Neck Exam Neck Exam: Full ROM, Normal Inspection. absent: Lymphadenopathy - Respiratory Exam Respiratory Exam: Decreased Breath Sounds - Cardiovascular Exam Cardiovascular Exam: REGULAR RHYTHM, +S1, +S2 - GI/Abdominal Exam GI & Abdominal Exam: Soft, Diminished Bowel Sounds - Rectal Exam Rectal Exam: Deferred
--- NOTE | 2018-08-19 23:14 | CON ---
DATE: 08/19/2018 REASON FOR CONSULTATION: Rapid response and tachycardia. HISTORY OF PRESENT ILLNESS: The patient is a 73-year-old male, originally from [place], who was initially admitted for nausea and vomiting. The patient has a history of chronic renal insufficiency and during this admission was noted to be uremic. BUN and creatinine on admission were respectively and the patient required hemodialysis following placement of subclavian hemodialysis catheter. Apparently, the patient was trying to pull on his hemodialysis catheter while sleeping. Subsequently, the patient reported chest heaviness, and rapid response was called and the patient was found to be tachycardic with a heart rate of 164, likely an atrial flutter with 2:1 conduction; however, SVT could not be completely ruled out. The patient denies any prior cardiac history. At the time of my evaluation, the patient was still tachycardic with a heart rate of 150. Denies any chest pain or shortness of breath. MEDICATIONS: The patient's medications include Eliquis 0.5 mg twice a day, IV Maxipime 1 g daily, Procrit 10,000 units intravenous and Tylenol 650 mg every 6 hours p.r.n. REVIEW OF SYSTEMS: The patient was experiencing vomiting and diarrhea on admission. PHYSICAL EXAMINATION GENERAL: The patient is an elderly male who does not appear to be in acute distress. VITAL SIGNS: Blood pressure 156/70, heart rate 83, temperature 98.7, respirations 20. HEENT: Pale conjunctivae. CHEST: Poor air entry bilaterally. HEART: S1 and S2 regular. No gallop and no pericardial rub. ABDOMEN: Soft. EXTREMITIES: No edema. LABORATORY DATA: Today's hemoglobin and hematocrit are 8.2 and 24.8, white count 10.8 and platelet count 207,000. Yesterday's chest x-ray revealed normal cardiac silhouette, prominent central vasculature, right internal jugular dialysis catheter. A CT scan without contrast revealed [id number] chronic microvascular ischemic changes, chronic lacunar infarcts in the left caudate, head and basal ganglia. Small chronic infarct in the posterior left frontoparietal white matter. An echocardiographic study on 08/15/2018, i.e. four days ago, revealed normal ejection fraction, no pericardial effusion, calculated pulmonary systolic pressure of 81 mmHg. The admitting EKG revealed normal sinus rhythm with nonspecific ST changes at the rate of 84. ASSESSMENT: 1. Chest pain, rule out myocardial infarction 2. Consider atrial flutter with 2:1 conduction. 3. End-stage renal disease, requiring hemodialysis. 4. Anemia. RECOMMENDATIONS: The case was discussed with the hospitalist on the case. The patient will be transferred to telemetry, but before that the patient will receive one dose of 5 mg intravenous verapamil to hopefully terminate his arrhythmia. If there is supraventricular tachycardia or diagnosis of atrial flutter, if there is some slowing of the AV conduction and clearance of the flutter waves, consider full anticoagulation or resumption of Eliquis therapy if there is no contraindication. In the meantime, I recommend obtaining chest CT angio to rule out pulmonary infarct after ensuring that the patient's catheter is still adequate for hemodialysis following the dye contrast load. Dav Hernandez MD
--- NOTE | 2018-08-20 09:42 | RAD ---
Date of service: 08/18/2018 PROCEDURE: Intraoperative Fluoroscopy. HISTORY: RENAL FAILURE FINDINGS: Fluoroscopic assistance was provided. Fluoroscopy time = 3.4 sec. Radiation dose = 0.19 mGy-cm. Please refer to the operative report from DIMAS Goyal.
--- NOTE | 2018-08-20 12:03 | CP.PCM.PN ---
Subjective - Date & Time of Evaluation Date of Evaluation: 08/20/18 Time of Evaluation: 12:03 - Subjective Subjective: pt is not in acute distress, no cp, no sob, pt is awake, confused Objective - Vital Signs/Intake and Output Vital Signs (last 24 hours): Temp Pulse Resp BP Pulse Ox 98.8 F 79 20 153/81 H 98 08/20/18 07:20 08/20/18 08:00 08/20/18 07:20 08/20/18 07:20 08/20/18 07:20 - Medications Medications: Current Medications Acetaminophen (Tylenol 325mg Tab) 650 mg PO Q6 PRN PRN Reason: pain, fever Last Admin: 08/19/18 16:41 Dose: 650 mg Apixaban (Eliquis) 2.5 mg PO BID [facility] Last Admin: 08/20/18 10:52 Dose: 2.5 mg Epoetin Dariel (Procrit) 10,000 unit IV TTS [facility] Last Admin: 08/19/18 14:45 Dose: 10,000 unit Cefepime HCl (Maxipime Iv 1 Gm Premix) 1 gm in 50 mls @ 100 mls/hr IVPB Q24H [facility]; Protocol Last Admin: 08/19/18 19:28 Dose: 100 mls/hr - Labs Labs: 08/17/18 07:11 08/17/18 07:11 PT 16.7 SECONDS (9.7-12.2) H 08/16/18 07:07 INR 1.5 08/16/18 07:07 APTT 34 SECONDS (21-34) 08/16/18 07:07 - Constitutional Appears: Well, Non-toxic, No Acute Distress - Head Exam Head Exam: ATRAUMATIC, NORMAL INSPECTION - Eye Exam Eye Exam: EOMI, Normal appearance, PERRL Pupil Exam: NORMAL ACCOMODATION - ENT Exam ENT Exam: Mucous Membranes Moist - Neck Exam Neck Exam: Full ROM - Respiratory Exam Respiratory Exam: Clear to Ausculation Bilateral, NORMAL BREATHING PATTERN - Cardiovascular Exam Cardiovascular Exam: Irregular Rhythm, +S1, +S2 - GI/Abdominal Exam GI & Abdominal Exam: Soft, Normal Bowel Sounds - Rectal Exam Rectal Exam: Deferred - Extremities Exam Extremities Exam: Full ROM, Normal Inspection Additional comments: no edema of legs Assessment and Plan - Assessment and Plan (Free Text) Assessment: 73 to AA male with pmh/o htn, prostate cA, ckd-3, ? UTI with diarrhea x 2 weeks, weakness, shaking, decreased uop, difficulty to ambulate vert high bun/cr, confusion, low bicarb, high wbc now blood c/s + ve for GNR urine analysis c/w uti 1. GRAYSON on ckd-3 2. Gram negative sepsis, sec to E.coli, 3. high anion gap met. acidosis 4. R/o uremic encephalopathy 5. Expressive aphasia 6. Paraoxysmal A fib 7. Anemia 8. confusion ? sec to cva/TIA s/p rt ijv perma cath placement yesterday c/w iv abx c/w iv abx, on merrem c/w epogen during hd PT/OT evaluation, f/u with neurology f/u with cardiology, continue tele monitoring CT angiogram is negative for PE consider MRI of brain
--- NOTE | 2018-08-20 16:55 | PN ---
DATE: 08/20/2018 SUBJECTIVE: The patient is currently in sinus rhythm. He denies any chest pain or palpitation. PHYSICAL EXAMINATION: VITAL SIGNS: Blood pressure 153/81, heart rate 85, temperature 98.8, respirations 20. HEENT: Pale conjunctiva. CHEST: Diminished breath sounds over the bases. HEART: S1, S2, regular. EXTREMITIES: Trace leg edema. Chest CT angio revealed no evidence for acute pulmonary embolus, cardiomegaly, moderate to large bilateral pleural effusion, small areas of diffuse consolidation in the lingula may represent atelectasis, pneumonia or less likely a neoplasm. ASSESSMENT: 1. Paroxysmal atrial fibrillation. 2. End-stage renal disease, on hemodialysis. 3. Moderate to large bilateral pleural effusion. 4. Anemia. RECOMMENDATION: Continue Eliquis 2.5 mg twice a day, IV Maxipime at 1 g every 24 hours. obtain 12-lead EKG today. Yesterday's troponin was within normal limits. Dav Hernandez MD
--- NOTE | 2018-08-20 17:12 | CP.PCM.PN ---
Subjective - Date & Time of Evaluation Date of Evaluation: 08/20/18 Time of Evaluation: 08:00 - Subjective Subjective: seen on rounds family at bedside no fever Objective - Vital Signs/Intake and Output Vital Signs (last 24 hours): Temp Pulse Resp BP Pulse Ox 98.8 F 82 20 153/81 H 98 08/20/18 07:20 08/20/18 12:47 08/20/18 07:20 08/20/18 07:20 08/20/18 07:20 Intake and Output: 08/20/18 08/20/18 06:59 18:59 Intake Total 400 Balance 400 - Medications Medications: Current Medications Acetaminophen (Tylenol 325mg Tab) 650 mg PO Q6 PRN PRN Reason: pain, fever Last Admin: 08/19/18 16:41 Dose: 650 mg Apixaban (Eliquis) 2.5 mg PO BID [facility] Last Admin: 08/20/18 10:52 Dose: 2.5 mg Epoetin Dariel (Procrit) 10,000 unit IV TTS [facility] Last Admin: 08/19/18 14:45 Dose: 10,000 unit Cefepime HCl (Maxipime Iv 1 Gm Premix) 1 gm in 50 mls @ 100 mls/hr IVPB Q24H [facility]; Protocol Last Admin: 08/19/18 19:28 Dose: 100 mls/hr - Labs Labs: 08/17/18 07:11 08/17/18 07:11 PT 16.7 SECONDS (9.7-12.2) H 08/16/18 07:07 INR 1.5 08/16/18 07:07 APTT 34 SECONDS (21-34) 08/16/18 07:07 - Constitutional Appears: Non-toxic, Chronically Ill - Head Exam Head Exam: NORMOCEPHALIC - Eye Exam Eye Exam: absent: Scleral icterus - ENT Exam ENT Exam: Mucous Membranes Dry - Neck Exam Neck Exam: absent: Lymphadenopathy - Respiratory Exam Respiratory Exam: Decreased Breath Sounds - Cardiovascular Exam Cardiovascular Exam: REGULAR RHYTHM - GI/Abdominal Exam GI & Abdominal Exam: Distended, Soft Assessment and Plan (1) Prostate cancer Status: Acute (2) Dehydration Status: Acute (3) Diarrhea Status: Acute (4) UTI (urinary tract infection) Status: Acute (5) Sepsis Status: Acute (6) Acute renal failure Status: Acute (7) Altered mental state Status: Acute (8) Anemia Status: Acute (9) Metabolic acidosis Status: Acute
[2018-08-20] MEDS: Cefepime IV 1 gm in Dextrose 1 GM/50 ML BAG IVPB SCH (17:32)
--- NOTE | 2018-08-20 17:46 | CP.PCM.PN ---
Subjective - Date & Time of Evaluation Date of Evaluation: 08/20/18 Time of Evaluation: 11:15 - Subjective Subjective: clinically same Objective - Vital Signs/Intake and Output Vital Signs (last 24 hours): Temp Pulse Resp BP Pulse Ox 98.8 F 82 20 153/81 H 98 08/20/18 07:20 08/20/18 12:47 08/20/18 07:20 08/20/18 07:20 08/20/18 07:20 Intake and Output: 08/20/18 08/20/18 06:59 18:59 Intake Total 400 Balance 400 - Medications Medications: Current Medications Acetaminophen (Tylenol 325mg Tab) 650 mg PO Q6 PRN PRN Reason: pain, fever Last Admin: 08/19/18 16:41 Dose: 650 mg Apixaban (Eliquis) 2.5 mg PO BID [facility] Last Admin: 08/20/18 17:32 Dose: 2.5 mg Epoetin Dariel (Procrit) 10,000 unit IV TTS [facility] Last Admin: 08/19/18 14:45 Dose: 10,000 unit Cefepime HCl (Maxipime Iv 1 Gm Premix) 1 gm in 50 mls @ 100 mls/hr IVPB Q24H [facility]; Protocol Last Admin: 08/20/18 17:32 Dose: 100 mls/hr - Labs Labs: 08/17/18 07:11 08/17/18 07:11 PT 16.7 SECONDS (9.7-12.2) H 08/16/18 07:07 INR 1.5 08/16/18 07:07 APTT 34 SECONDS (21-34) 08/16/18 07:07 - Constitutional Appears: Well - Head Exam Head Exam: ATRAUMATIC, NORMAL INSPECTION, NORMOCEPHALIC - Eye Exam Eye Exam: EOMI, Normal appearance, PERRL Pupil Exam: NORMAL ACCOMODATION, PERRL - ENT Exam ENT Exam: Mucous Membranes Moist, Normal Exam - Neck Exam Neck Exam: Full ROM, Normal Inspection. absent: Lymphadenopathy - Respiratory Exam Respiratory Exam: Decreased Breath Sounds - Cardiovascular Exam Cardiovascular Exam: REGULAR RHYTHM, +S1, +S2 - GI/Abdominal Exam GI & Abdominal Exam: Soft, Diminished Bowel Sounds - Rectal Exam Rectal Exam: Deferred Assessment and Plan - Assessment and Plan (Free Text) Plan: Patient is a 73 year old male with past medical history of prostate cancer and CKD, who had a DENTAL OFFICE COORDINATOR for rapid heart rate (140s-170s) post 3 hours of HD treatment with 1 liter of volume removed: -Verapamil 5mg IV once was given and HR was noted to decrease to 120s-100s and patient admits to symptomatic relief -Patient's BP s/p verapamil was 148/74 and maintaining a HR of 94 -Labs were ordered: CBC, CMP, TROPONIN, Mg and Phosphorous with EKG -PMD notified
[2018-08-21] MEDS: Epoetin Alfa 10,000 unit/ml Dialysis IV SCH (11:44)
[2018-08-21 13:01] LABS: BASO # 0.1 K/uL (0.0-0.2); EOS # 0.2 K/uL (0.0-0.7); EOS % 1.9 % (0.0-4.0); HEMOGLOBIN 9.3 g/dL (12.0-18.0); LYMPH % 12.2 % (20.0-40.0); MEAN CELL VOLUME 65.7 fL (80.0-94.0); MEAN CORPUSCULAR HEMOGLOBIN 20.9 pg (27.0-31.0); MEAN CORPUSCULAR HGB CONC 31.8 g/dL (33.0-37.0); MONO % 12.2 % (0.0-10.0); NEUT % 72.7 % (50.0-75.0); NRBC % 0.7 % (0.0-2.0); RBC 4.48 Mil/uL (4.40-5.90); WHITE BLOOD COUNT 8.3 K/uL (4.8-10.8)
--- NOTE | 2018-08-21 13:07 | PCM.RRT ---
<Arnie Cuellar E - Last Filed: 08/21/18 13:00> RAIL WASHER Nurses Assessment - Situation Date: 08/21/18 Time RAIL WASHER was called: 12:26 RAIL WASHER Responder Arrival Time:: 12:27 RAIL WASHER Location:: Med/Surg Room Number: 653B RAIL WASHER Reason for Call: Tachycardia RAIL WASHER Called By: RN - IV IV Inserted during RAIL WASHER?: No - Respiratory RAIL WASHER Delivery Method: Nasal Cannula @L/min Oxygen Flow Rate: 2 Received Nebulizer Treatments: No Was the Patient Ventilated with Bag/Mask 100% O2?: No Secretions Suctioned?: No Was the Patient Intubated?: No Was the Patient Placed on a Ventilator?: No - Medication Medications Administered During RAIL WASHER: Verapamil 5mg IV given by ICU nurse Adan 12:34 pm - Diagnostic Test Ordered EKG: Yes Chest X-Ray: No CT Scan: No - Stat Labs Ordered RAIL WASHER Stat Labs Ordered: CBC, BMP, TROPONIN CPR started during RAIL WASHER?: No - Vital Signs Vital Signs: Rapid Response Vital Sign Pulse Rate 172 Respiratory Rate 20 Temperature 98.6 F Oxygen Saturation 100 - [place] Coma Scale Coma Scale Eye Opening: Spontaneous Coma Scale Motor: Obeys Commands Movement Coma Scale Verbal: Oriented Coma Scale Total: 15 - Time RAIL WASHER Ended Time RAIL WASHER Ended: 12:43 - Vital Signs at end of RAIL WASHER Vital Signs at end of RAIL WASHER: Rapid Response End Vital Sign Blood Pressure 148/74 Pulse Rate 102 Respiratory Rate 20 Temperature 98.1 F O2 Sat by Pulse Oximetry 100 - Recommendations Notifications: Attending Physician I.Reason for RAIL WASHER - A) Acute Change in Patient: Subjective: RAIL WASHER was called at 12:26pm for rapid heart rate (140s-170s) post 3 hours of HD treatment with 1 liter of volume removed Patient was AA0X and admitted to chest pressure on evaluation and palpitation but denies any shortness of breath, dizziness, blurry vision or numbness/tingling Patient's BP 138/78 during RAIL WASHER Verapamil 5mg IV once was given and HR was noted to decrease to 120s-100s and patient admits to symptomatic relief Patient's BP s/p verapamil was 148/74 and maintaining a HR of 94 Labs were ordered: CBC, CMP, TROPONIN, Mg and Phosphorous with EKG - Neurological Status (Select all that apply): Alert, Responsive, Oriented, Verbal, Follows Commands - Respiratory Oxygen Delivery Method: Nasal Cannula @L/min Oxygen Flow Rate: 2 - Constitutional Appears: No Acute Distress - Head Head Exam: ATRAUMATIC, NORMAL INSPECTION - Eyes Eye Exam: EOMI, Normal appearance - Respiratory Exam Respiratory Exam: Clear to Ausculation Bilateral, NORMAL BREATHING PATTERN - Cardiovascular Exam Cardiovascular Exam: Tachycardia, REGULAR RHYTHM, +S1, +S2 - GI/Abdominal Exam GI & Abdominal Exam: Soft, Normal Bowel Sounds. absent: Firm, Guarding, Rigid, Tenderness - Neurological Exam Neurological Exam: Alert, Awake, Oriented x3 - Extremities Exam Extremities Exam: absent: Calf Tenderness, Pedal Edema Plan - Assessment of Findings&Treatment Plan Patient is a 73 year old male with past medical history of prostate cancer and CKD, who had a RAIL WASHER for rapid heart rate (140s-170s) post 3 hours of HD treatment with 1 liter of volume removed: -Verapamil 5mg IV once was given and HR was noted to decrease to 120s-100s and patient admits to symptomatic relief -Patient's BP s/p verapamil was 148/74 and maintaining a HR of 94 -Labs were ordered: CBC, CMP, TROPONIN, Mg and Phosphorous with EKG -PMD notified <Laura Garcia - Last Filed: 09/03/18 20:24> RAIL WASHER Nurses Assessment - Vital Signs Vital Signs: Rapid Response Vital Sign Pulse Rate 172 Respiratory Rate 20 Temperature 98.6 F Oxygen Saturation 100 - Vital Signs at end of RAIL WASHER Vital Signs at end of RAIL WASHER: Rapid Response End Vital Sign Blood Pressure 148/74 Pulse Rate 102 Respiratory Rate 20 Temperature 98.1 F O2 Sat by Pulse Oximetry 100 Attending/Attestation - Attestation I have personally seen and examined this patient.: Yes I have fully participated in the care of the patient.: Yes I have reviewed all pertinent clinical information, including history, physical exam and plan: Yes
[2018-08-21 13:15] LABS: ALB/GLOB RATIO 0.7 (1.0-2.1); ALBUMIN 2.7 g/dL (3.5-5.0); CALCIUM 6.6 mg/dl (8.6-10.4)
[2018-08-21 13:18] LABS: CK-MB 1.49 ng/mL (0.0-3.38); TROPONIN I 0.036 ng/mL (0.00-0.120)
--- NOTE | 2018-08-21 16:19 | CP.PCM.PN ---
Subjective - Date & Time of Evaluation Date of Evaluation: 08/21/18 Time of Evaluation: 16:18 - Subjective Subjective: s/p hemodialysis, s/p CANE FLUME FEEDING MACHINE OPERATOR for during dialysis for tachycardia, pt's family c/o rt UE swelling pt is still confused , he is calling his daughter as Objective - Vital Signs/Intake and Output Vital Signs (last 24 hours): Temp Pulse Resp BP Pulse Ox 97.8 F 85 16 161/97 H 96 08/21/18 12:05 08/21/18 12:05 08/21/18 12:05 08/21/18 12:05 08/21/18 12:05 - Medications Medications: Current Medications Acetaminophen (Tylenol 325mg Tab) 650 mg PO Q6 PRN PRN Reason: pain, fever Last Admin: 08/21/18 04:14 Dose: 650 mg Apixaban (Eliquis) 2.5 mg PO BID [facility] Last Admin: 08/21/18 11:07 Dose: Not Given Epoetin Dariel (Procrit) 10,000 unit IV TTS [facility] Last Admin: 08/21/18 11:44 Dose: 10,000 unit Cefepime HCl (Maxipime Iv 1 Gm Premix) 1 gm in 50 mls @ 100 mls/hr IVPB Q24H [facility]; Protocol Last Admin: 08/20/18 17:32 Dose: 100 mls/hr Metoprolol Tartrate (Lopressor) 50 mg PO BID [facility] - Labs Labs: 08/21/18 12:49 08/21/18 12:49 PT 16.7 SECONDS (9.7-12.2) H 08/16/18 07:07 INR 1.5 08/16/18 07:07 APTT 34 SECONDS (21-34) 08/16/18 07:07 - Constitutional Appears: Well, Non-toxic, No Acute Distress - Head Exam Head Exam: ATRAUMATIC, NORMAL INSPECTION, NORMOCEPHALIC - Eye Exam Eye Exam: EOMI, Normal appearance, PERRL Pupil Exam: NORMAL ACCOMODATION - ENT Exam ENT Exam: Mucous Membranes Moist - Neck Exam Neck Exam: Full ROM - Respiratory Exam Respiratory Exam: Clear to Ausculation Bilateral, NORMAL BREATHING PATTERN - GI/Abdominal Exam GI & Abdominal Exam: Soft, Normal Bowel Sounds - Extremities Exam Additional comments: no edema - Neurological Exam Neurological Exam: Alert, Awake, CN II-XII Intact Additional comments: tremors+, oriented x 1-2 - Skin Skin Exam: Normal Color Assessment and Plan - Assessment and Plan (Free Text) Assessment: 73 to AA male with pmh/o htn, prostate cA, ckd-3, ? UTI with diarrhea x 2 weeks, weakness, shaking, decreased uop, difficulty to ambulate vert high bun/cr, confusion, low bicarb, high wbc now blood c/s + ve for GNR urine analysis c/w uti, ct scan c/w moderate- severe microvascular changes, chronic left frontoparietal lacunar infarcts 1. GRAYSON on ckd-3 2. Gram negative sepsis, sec to E.coli, 3. high anion gap met. acidosis 4. R/o uremic encephalopathy 5. Expressive aphasia 6. Paraoxysmal A fib 7. Anemia 8. confusion ? sec to cva/TIA s/p rt ijv perma cath placement c/w iv abx, on merrem c/w epogen during hd PT/OT evaluation/ [facility] placement f/u with neurology f/u with cardiology for A. fib, continue tele monitoring CT angiogram is negative for PE consider MRI of brain stable hd tx check rt UE doppler to r/o dvt
--- NOTE | 2018-08-21 16:33 | CP.PCM.PN ---
Subjective - Date & Time of Evaluation Date of Evaluation: 08/21/18 Time of Evaluation: 14:10 - Subjective Subjective: Neurology Consultation Follow-Up Note: Mr. Baptiste was evaluated this afternoon at bedside. He is post-Rapid Response today after HD secondary to tachycardia. Patient admits to feeling tired, however, this is normal for him after his HD sessions. Admits that his speech and the shaking to his RUE has improved. He offers other and new complaints today. Denies headache, visual changes, dizziness, chest pain, shortness of breath, nausea/vomiting, unsteadiness. Aside from the tachycardia today, there have been no acute overnight events per nursing staff. Objective - Vital Signs/Intake and Output Vital Signs (last 24 hours): Temp Pulse Resp BP Pulse Ox 97.8 F 85 16 161/97 H 96 08/21/18 12:05 08/21/18 12:05 08/21/18 12:05 08/21/18 12:05 08/21/18 12:05 - Medications Medications: Current Medications Acetaminophen (Tylenol 325mg Tab) 650 mg PO Q6 PRN PRN Reason: pain, fever Last Admin: 08/21/18 04:14 Dose: 650 mg Apixaban (Eliquis) 2.5 mg PO BID [facility] Last Admin: 08/21/18 11:07 Dose: Not Given Epoetin Dariel (Procrit) 10,000 unit IV TTS [facility] Last Admin: 08/21/18 11:44 Dose: 10,000 unit Cefepime HCl (Maxipime Iv 1 Gm Premix) 1 gm in 50 mls @ 100 mls/hr IVPB Q24H [facility]; Protocol Last Admin: 08/20/18 17:32 Dose: 100 mls/hr Metoprolol Tartrate (Lopressor) 50 mg PO BID [facility] - Labs Labs: 08/21/18 12:49 08/21/18 12:49 PT 16.7 SECONDS (9.7-12.2) H 08/16/18 07:07 INR 1.5 08/16/18 07:07 APTT 34 SECONDS (21-34) 08/16/18 07:07 - Constitutional Appears: Non-toxic, No Acute Distress - Head Exam Head Exam: ATRAUMATIC, NORMAL INSPECTION, NORMOCEPHALIC - Eye Exam Eye Exam: EOMI, Normal appearance Pupil Exam: NORMAL ACCOMODATION, PERRL - ENT Exam ENT Exam: Mucous Membranes Moist - Neck Exam Neck Exam: Full ROM - Respiratory Exam Respiratory Exam: NORMAL BREATHING PATTERN - Extremities Exam Extremities Exam: Full ROM - Neurological Exam Neurological Exam: Alert, Awake, CN II-XII Intact, Oriented x3 Additional comments: Speech clear, fluid, no slurring; Repetition intact; No expressive aphasia noted; No pronator drift; Finger to nose normal. - Psychiatric Exam Psychiatric exam: Normal Affect, Normal Mood Assessment and Plan (1) Ischemic stroke Assessment & Plan: Imaging: -CT Head W/O Contrast (08/15/18): moderate to severe chronic microvascular ischemic changes. Chronic lacunar infacrst in the left caudate head and basal ganglia. Small chronic infarct in the posterior left frontal parietal white matter. Sinus mucosal disease. -CT Head W/O Contrast (08/12/18): chronic microvascular ischemic changes. -RUE and hand asterixis and shaking continues to improve. -MRI of the Brain without contrast is ordered and still pending at this time. Will follow up with the results once done. -Continue PT/OT. -Continue Eliquis 2.5 mg PO BID. -Please notify neuro team of any acute changes in condition. Case reviewed and discussed with Dr. Elder. Thank you for allowing us to participate in the care of this patient. Status: Acute
[2018-08-21] MEDS: Cefepime IV 1 gm in Dextrose 1 GM/50 ML BAG IVPB SCH (18:06)
--- NOTE | 2018-08-21 19:22 | CP.PCM.PN ---
Subjective - Date & Time of Evaluation Date of Evaluation: 08/21/18 Time of Evaluation: 11:45 - Subjective Subjective: clinically same Objective - Vital Signs/Intake and Output Vital Signs (last 24 hours): Temp Pulse Resp BP Pulse Ox 98.8 F 106 H 20 130/73 95 08/21/18 18:06 08/21/18 18:06 08/21/18 18:06 08/21/18 18:06 08/21/18 17:10 - Medications Medications: Current Medications Acetaminophen (Tylenol 325mg Tab) 650 mg PO Q6 PRN PRN Reason: pain, fever Last Admin: 08/21/18 04:14 Dose: 650 mg Apixaban (Eliquis) 2.5 mg PO BID [facility] Last Admin: 08/21/18 18:05 Dose: 2.5 mg Epoetin Dariel (Procrit) 10,000 unit IV TTS [facility] Last Admin: 08/21/18 11:44 Dose: 10,000 unit Cefepime HCl (Maxipime Iv 1 Gm Premix) 1 gm in 50 mls @ 100 mls/hr IVPB Q24H [facility]; Protocol Last Admin: 08/21/18 18:06 Dose: 100 mls/hr Metoprolol Tartrate (Lopressor) 50 mg PO BID [facility] Last Admin: 08/21/18 18:05 Dose: 50 mg - Labs Labs: 08/21/18 12:49 08/21/18 12:49 PT 16.7 SECONDS (9.7-12.2) H 08/16/18 07:07 INR 1.5 08/16/18 07:07 APTT 34 SECONDS (21-34) 08/16/18 07:07 - Constitutional Appears: Well - Head Exam Head Exam: ATRAUMATIC, NORMAL INSPECTION, NORMOCEPHALIC - Eye Exam Eye Exam: EOMI, Normal appearance, PERRL Pupil Exam: NORMAL ACCOMODATION, PERRL - ENT Exam ENT Exam: Mucous Membranes Moist, Normal Exam - Neck Exam Neck Exam: Full ROM, Normal Inspection. absent: Lymphadenopathy - Respiratory Exam Respiratory Exam: Decreased Breath Sounds - Cardiovascular Exam Cardiovascular Exam: REGULAR RHYTHM, +S1, +S2 - GI/Abdominal Exam GI & Abdominal Exam: Soft, Diminished Bowel Sounds - Rectal Exam Rectal Exam: Deferred
--- NOTE | 2018-08-21 22:46 | PN ---
DATE: 08/21/2018 FOLLOWUP SUBJECTIVE: The patient underwent hemodialysis today; however, he developed rapid AFib. Rapid response was activated. The patient received 5 mg of IV verapamil, was conversion to sinus rhythm. He denies any chest pain at this time. PHYSICAL EXAMINATION: VITAL SIGNS: Blood pressure 159/81, heart rate 78, temperature 100, respirations 20. HEENT: Pale conjunctivae. CHEST: Clear. HEART: S1 and S2 are regular. EXTREMITIES: No edema. LABORATORY DATA: Today's BUN and creatinine are 22 and 3.6, glucose 117. Rest of his SMA-7 is within normal limit. Calcium below normal at 6.6. Hemoglobin and hematocrit 9.3 and 29.4. White count and platelet count are within normal limits. EKG following rapid response revealed sinus rhythm with nonspecific ST-T wave changes. Neuro evaluation was reviewed today. The assessment was ischemic stroke, ojcxdiac-zp-[id number] chronic microvascular ischemic changes, chronic lacunar infarct in the left caudate head and basal ganglia, small chronic infarct in the posterior left frontoparietal white matter. Recommendation was to continue Eliquis 2.5 mg twice a day. ASSESSMENT: 1. End-stage renal disease, on hemodialysis. 2. Paroxysmal atrial fibrillation. 3. History of multiple cerebrovascular accidents. 4. Wewhceqs-br-hgunp bilateral pleural effusion. 5. Anemia. RECOMMENDATIONS: Case was discussed with Dr. Merry Crespo. The patient will be maintained on Eliquis 2.5 mg twice a day, IV Maxipime at 1 g daily, and Lopressor was started 50 mg twice a day. The case was discussed with the patient's family at the bedside. Dav Hernandez MD
--- NOTE | 2018-08-22 13:28 | CP.PCM.PN ---
Subjective - Date & Time of Evaluation Date of Evaluation: 08/22/18 Time of Evaluation: 13:28 - Subjective Subjective: pt is not in acute distress, more alert today ,oriented x2 Objective - Vital Signs/Intake and Output Vital Signs (last 24 hours): Temp Pulse Resp BP Pulse Ox 98.6 F 86 20 138/78 97 08/22/18 07:00 08/22/18 07:00 08/22/18 07:00 08/22/18 07:00 08/22/18 07:00 Intake and Output: 08/22/18 08/22/18 06:59 18:59 Intake Total 530 Output Total 200 Balance 330 - Medications Medications: Current Medications Acetaminophen (Tylenol 325mg Tab) 650 mg PO Q6 PRN PRN Reason: pain, fever Last Admin: 08/21/18 04:14 Dose: 650 mg Apixaban (Eliquis) 2.5 mg PO BID [facility] Last Admin: 08/21/18 18:05 Dose: 2.5 mg Epoetin Dariel (Procrit) 10,000 unit IV TTS [facility] Last Admin: 08/21/18 11:44 Dose: 10,000 unit Cefepime HCl (Maxipime Iv 1 Gm Premix) 1 gm in 50 mls @ 100 mls/hr IVPB Q24H [facility]; Protocol Last Admin: 08/21/18 18:06 Dose: 100 mls/hr Metoprolol Tartrate (Lopressor) 50 mg PO BID [facility] Last Admin: 08/21/18 18:05 Dose: 50 mg - Labs Labs: 08/21/18 12:49 08/21/18 12:49 PT 16.7 SECONDS (9.7-12.2) H 08/16/18 07:07 INR 1.5 08/16/18 07:07 APTT 34 SECONDS (21-34) 08/16/18 07:07 - Constitutional Appears: Well, Non-toxic, No Acute Distress - Head Exam Head Exam: ATRAUMATIC, NORMAL INSPECTION - Eye Exam Eye Exam: EOMI, Normal appearance, PERRL Pupil Exam: NORMAL ACCOMODATION - ENT Exam ENT Exam: Mucous Membranes Moist - Neck Exam Neck Exam: Full ROM, Normal Inspection - Respiratory Exam Respiratory Exam: Clear to Ausculation Bilateral, NORMAL BREATHING PATTERN - Cardiovascular Exam Cardiovascular Exam: REGULAR RHYTHM, +S1, +S2 - GI/Abdominal Exam GI & Abdominal Exam: Soft, Normal Bowel Sounds - Rectal Exam Rectal Exam: Deferred - Extremities Exam Extremities Exam: Normal Inspection Additional comments: no edema of legs - Neurological Exam Neurological Exam: Alert, Awake, CN II-XII Intact Additional comments: oriented x2 - Skin Skin Exam: Normal Color, Warm Assessment and Plan - Assessment and Plan (Free Text) Assessment: 73 to AA male with pmh/o htn, prostate cA, ckd-3, ? UTI with diarrhea x 2 weeks, weakness, shaking, decreased uop, difficulty to ambulate vert high bun/cr, confusion, low bicarb, high wbc now blood c/s + ve for GNR urine analysis c/w uti, ct scan c/w moderate- severe microvascular changes, chronic left frontoparietal lacunar infarcts 1. GRAYSON on ckd-3 2. Gram negative sepsis, sec to E.coli, 3. high anion gap met. acidosis 4. R/o uremic encephalopathy 5. Expressive aphasia 6. Paraoxysmal A fib 7. Anemia 8. confusion ? sec to cva/TIA s/p rt ijv perma cath placement c/w iv abx, on merrem c/w epogen during hd PT/OT evaluation/ LANI placement f/u with neurology f/u with cardiology for A. fib, continue tele monitoring CT angiogram is negative for PE consider MRI of brain to r/o cva/TIA check rt UE doppler to r/o dvt
--- NOTE | 2018-08-22 15:01 | PN ---
DATE: 08/22/2018 SUBJECTIVE: No reported paroxysms of atrial fibrillation overnight. The patient denies any chest pain, dizziness or palpitation. PHYSICAL EXAMINATION: VITAL SIGNS: Blood pressure 138/78, heart rate 86, temperature 98.6, respirations 20. HEENT: Normocephalic. CHEST: Clear. HEART: S1 and S2 regular. EXTREMITIES: No edema. ASSESSMENT: 1. End-stage renal disease, on hemodialysis. 2. Paroxysmal atrial fibrillation. 3. History of multiple ischemic cerebrovascular accidents in the past. 4. Rnkqqlhy-uv-rvlni bilateral pleural effusion. 5. Anemia. PLAN: Continue Eliquis 2.5 mg twice a day, Lopressor 50 mg twice a day, IV cefepime at 1 g daily. Dav Hernandez MD
--- NOTE | 2018-08-22 15:56 | CP.PCM.PN ---
Subjective - Date & Time of Evaluation Date of Evaluation: 08/22/18 Time of Evaluation: 09:00 - Subjective Subjective: awake alert nad denies fever Objective - Vital Signs/Intake and Output Vital Signs (last 24 hours): Temp Pulse Resp BP Pulse Ox 98.6 F 86 20 138/78 97 08/22/18 07:00 08/22/18 07:00 08/22/18 07:00 08/22/18 07:00 08/22/18 07:00 Intake and Output: 08/22/18 08/22/18 06:59 18:59 Intake Total 530 Output Total 200 Balance 330 - Medications Medications: Current Medications Acetaminophen (Tylenol 325mg Tab) 650 mg PO Q6 PRN PRN Reason: pain, fever Last Admin: 08/21/18 04:14 Dose: 650 mg Apixaban (Eliquis) 2.5 mg PO BID [facility] Last Admin: 08/22/18 10:00 Dose: 2.5 mg Epoetin Dariel (Procrit) 10,000 unit IV TTS [facility] Last Admin: 08/21/18 11:44 Dose: 10,000 unit Cefepime HCl (Maxipime Iv 1 Gm Premix) 1 gm in 50 mls @ 100 mls/hr IVPB Q24H [facility]; Protocol Last Admin: 08/21/18 18:06 Dose: 100 mls/hr Metoprolol Tartrate (Lopressor) 50 mg PO BID [facility] Last Admin: 08/22/18 10:00 Dose: 50 mg - Labs Labs: 08/21/18 12:49 08/21/18 12:49 PT 16.7 SECONDS (9.7-12.2) H 08/16/18 07:07 INR 1.5 08/16/18 07:07 APTT 34 SECONDS (21-34) 08/16/18 07:07 - Constitutional Appears: Non-toxic, Chronically Ill - Head Exam Head Exam: NORMOCEPHALIC - Eye Exam Eye Exam: absent: Scleral icterus - ENT Exam ENT Exam: Mucous Membranes Dry - Neck Exam Neck Exam: absent: Lymphadenopathy - Respiratory Exam Respiratory Exam: Decreased Breath Sounds - Cardiovascular Exam Cardiovascular Exam: REGULAR RHYTHM - GI/Abdominal Exam GI & Abdominal Exam: Distended, Soft Assessment and Plan (1) Prostate cancer Status: Acute (2) Dehydration Status: Acute (3) Diarrhea Status: Acute (4) UTI (urinary tract infection) Status: Acute (5) Sepsis Status: Acute (6) Acute renal failure Status: Acute (7) Altered mental state Status: Acute (8) Anemia Status: Acute (9) Metabolic acidosis Status: Acute
--- NOTE | 2018-08-22 17:36 | CP.PCM.PN ---
Subjective - Date & Time of Evaluation Date of Evaluation: 08/22/18 Time of Evaluation: 11:45 - Subjective Subjective: clinically same Objective - Vital Signs/Intake and Output Vital Signs (last 24 hours): Temp Pulse Resp BP Pulse Ox 98.1 F 78 20 127/68 99 08/22/18 15:00 08/22/18 16:00 08/22/18 15:00 08/22/18 15:00 08/22/18 15:00 Intake and Output: 08/22/18 08/22/18 06:59 18:59 Intake Total 530 Output Total 200 Balance 330 - Medications Medications: Current Medications Acetaminophen (Tylenol 325mg Tab) 650 mg PO Q6 PRN PRN Reason: pain, fever Last Admin: 08/21/18 04:14 Dose: 650 mg Apixaban (Eliquis) 2.5 mg PO BID [facility] Last Admin: 08/22/18 10:00 Dose: 2.5 mg Epoetin Dariel (Procrit) 10,000 unit IV TTS [facility] Last Admin: 08/21/18 11:44 Dose: 10,000 unit Cefepime HCl (Maxipime Iv 1 Gm Premix) 1 gm in 50 mls @ 100 mls/hr IVPB Q24H [facility]; Protocol Last Admin: 08/21/18 18:06 Dose: 100 mls/hr Metoprolol Tartrate (Lopressor) 50 mg PO BID [facility] Last Admin: 08/22/18 10:00 Dose: 50 mg - Labs Labs: 08/21/18 12:49 08/21/18 12:49 PT 16.7 SECONDS (9.7-12.2) H 08/16/18 07:07 INR 1.5 08/16/18 07:07 APTT 34 SECONDS (21-34) 08/16/18 07:07 - Constitutional Appears: Well - Head Exam Head Exam: ATRAUMATIC, NORMAL INSPECTION, NORMOCEPHALIC - Eye Exam Eye Exam: EOMI, Normal appearance, PERRL Pupil Exam: NORMAL ACCOMODATION, PERRL - ENT Exam ENT Exam: Mucous Membranes Moist, Normal Exam - Neck Exam Neck Exam: Full ROM, Normal Inspection. absent: Lymphadenopathy - Respiratory Exam Respiratory Exam: Decreased Breath Sounds - Cardiovascular Exam Cardiovascular Exam: REGULAR RHYTHM, +S1, +S2 - GI/Abdominal Exam GI & Abdominal Exam: Soft, Diminished Bowel Sounds - Rectal Exam Rectal Exam: Deferred
[2018-08-22] MEDS: Cefepime IV 1 gm in Dextrose 1 GM/50 ML BAG IVPB SCH (17:42)
[2018-08-23 06:43] LABS: HEMOGLOBIN 7.9 g/dL (12.0-18.0); MEAN CELL VOLUME 65.6 fL (80.0-94.0); MEAN CORPUSCULAR HEMOGLOBIN 20.8 pg (27.0-31.0); MEAN CORPUSCULAR HGB CONC 31.7 g/dL (33.0-37.0); MEAN PLATELET VOLUME 8.7 fL (7.2-11.7); RBC 3.8 Mil/uL (4.40-5.90); RED CELL DISTRIBUTION WIDTH 18.5 % (11.5-14.5); WHITE BLOOD COUNT 6.5 K/uL (4.8-10.8)
[2018-08-23 06:56] LABS: ALB/GLOB RATIO 0.8 (1.0-2.1); ALBUMIN 2.7 g/dL (3.5-5.0); CALCIUM 6.8 mg/dl (8.6-10.4)
--- NOTE | 2018-08-23 09:36 | VASCLAB ---
Date of service: 08/20/2018 PROCEDURE: Upper Extremity Venous Duplex Exam HISTORY: AVF PRIORS: None. TECHNIQUE: Bilateral upper extremity, internal jugular, subclavian, axillary, brachial, ulnar, radial, basilic and upper cephalic veins were evaluated. Flow was assessed with color Doppler, compressibility, assessment of phasic flow and augmentation response. Report prepared by Tank Weiss, STEVEN, RVT FINDINGS: RIGHT: 1. Internal Jugular Vein: Compressibility - : Thrombus - : Flow - 2. Subclavian Vein:Compressibility - Fully compressible: Thrombus - None : Flow - Phasic 3. Axillary Vein: Compressibility - Fully compressible: Thrombus - None 4. Brachial Vein: Compressibility - Fully compressible: Thrombus - None 5. Ulnar Vein:Compressibility - Fully compressible: Thrombus - None 6. Radial Vein:Compressibility - Fully compressible: Thrombus - None 7. Cephalic Vein: Compressibility - Fully compressible: thrombus - None 7.1. Upper Arm: Proximal Diameter: 0.16cm. Mid Diameter: 0.12cm. Distal Diameter: cm. 7.2. Forearm: Proximal Diameter: cm. Mid Diameter:cm. Distal Diameter: cm 8. Basilic Vein:Compressibility - Fully compressible: thrombus - None 8.1. Upper Arm:Proximal Diameter: 0.26cm. Mid Diameter: 0.18cm. Distal Diameter: 0.16Cm. Antecubital fossa Diameter: 0.21cm 8.2. Forearm: Proximal Diameter: cm. Mid Diameter:cm. Distal Diameter: cm. LEFT: 1. Internal Jugular Vein: Compressibility - Fully compressible: Thrombus - None : Flow - Phasic 2. Subclavian Vein:Compressibility - Fully compressible: Thrombus - None : Flow - Phasic 3. Axillary Vein: Compressibility - Fully compressible: Thrombus - None 4. Brachial Vein: Compressibility - Fully compressible: Thrombus - None 5. Ulnar Vein:Compressibility - Fully compressible: Thrombus - None 6. Radial Vein:Compressibility - Fully compressible: Thrombus - None 7. Cephalic Vein: Compressibility - Fully compressible: thrombus - None 7.1. Upper Arm: Proximal Diameter: cm. Mid Diameter: cm. Distal Diameter: Cm. 7.2. Forearm: Proximal Diameter: cm. Mid Diameter:cm. Distal Diameter: cm. Antecubital fossa Diameter: cm 8. Basilic Vein:Compressibility - Fully compressible: thrombus - None 8.1. Upper Arm:Proximal Diameter: 0.25cm. Mid Diameter: 0.26cm. Distal Diameter: 0.24Cm. Antecubital fossa Diameter: 0.29cm 8.2. Forearm: Proximal Diameter: 0.18cm. Mid Diameter:0.17cm. Distal Diameter: 0.14cm. OTHER FINDINGS: Right: None. Left: None. IMPRESSION: Right: Diameter measurements of the right cephalic vein measured between 0.12 cm and 0.16 cm and basilic vein measured between 0.16 cm and 0.26 cm. Unable to image the right internal jugular vein due to cath. 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 Diameter measurements of the left basilic vein measured between 0.14cm and 0.29cm.
--- NOTE | 2018-08-23 10:47 | MRI ---
Date of service: 08/23/2018 PROCEDURE: MRI BRAIN WITHOUT CONTRAST HISTORY: Stroke COMPARISON: No prior study available for comparison. TECHNIQUE: Multiplanar, multisequence MR images of the brain were obtained without intravenous contrast enhancement. FINDINGS: HEMORRHAGE: No acute parenchymal, subarachnoid or extra-axial hemorrhage. No evidence of hemosiderin deposition identified on gradient echo weighted sequence. DWI: No evidence of an acute or early subacute infarction seen on diffusion imaging. BRAIN PARENCHYMA: Moderate to significant diffuse and confluent chronic white matter ischemic changes seen extending peripherally into the deep and subcortical white matter both cerebral hemispheres. The there is also involvement of the corpus callosum. Multiple more discrete chronic appearing infarct changes are seen scattered about the deep and subcortical white matter at the as well as both basal nuclei and brainstem. Loss. Moderate generalized volume VENTRICLES: No obstructive hydrocephalus. CRANIUM: Unremarkable. ORBITS: Orbits and contents grossly unremarkable. PARANASAL SINUSES/MASTOIDS: Clear VASCULAR SYSTEM: Visualized major vascular flow voids at skull base patent. OTHER FINDINGS: None. IMPRESSION: No acute intracranial hemorrhage or infarct. Moderate to significant confluent white matter ischemic changes with scattered chronic bilateral basal nuclei and brainstem lacunar type infarcts. Moderate generalized volume loss.
--- NOTE | 2018-08-23 12:09 | CP.PCM.PN ---
Subjective - Date & Time of Evaluation Date of Evaluation: 08/23/18 Time of Evaluation: 12:08 - Subjective Subjective: pt is not in acute distress, no sob, no cp, confused for hd in am Objective - Vital Signs/Intake and Output Vital Signs (last 24 hours): Temp Pulse Resp BP Pulse Ox 98.9 F 86 20 148/87 96 08/23/18 08:24 08/23/18 08:24 08/23/18 08:24 08/23/18 08:24 08/23/18 08:24 - Medications Medications: Current Medications Acetaminophen (Tylenol 325mg Tab) 650 mg PO Q6 PRN PRN Reason: pain, fever Last Admin: 08/21/18 04:14 Dose: 650 mg Apixaban (Eliquis) 2.5 mg PO BID [facility] Last Admin: 08/23/18 11:08 Dose: 2.5 mg Epoetin Dariel (Procrit) 10,000 unit IV TTS [facility] Last Admin: 08/21/18 11:44 Dose: 10,000 unit Cefepime HCl (Maxipime Iv 1 Gm Premix) 1 gm in 50 mls @ 100 mls/hr IVPB Q24H [facility]; Protocol Last Admin: 08/22/18 17:42 Dose: 100 mls/hr Metoprolol Tartrate (Lopressor) 50 mg PO BID [facility] Last Admin: 08/23/18 11:11 Dose: 50 mg Temazepam (Restoril) 15 mg PO HS PRN PRN Reason: Sleep Last Admin: 08/22/18 22:09 Dose: 15 mg - Labs Labs: 08/23/18 06:36 08/23/18 06:36 PT 16.7 SECONDS (9.7-12.2) H 08/16/18 07:07 INR 1.5 08/16/18 07:07 APTT 34 SECONDS (21-34) 08/16/18 07:07 - Constitutional Appears: Well, Non-toxic, No Acute Distress - Head Exam Head Exam: ATRAUMATIC, NORMAL INSPECTION, NORMOCEPHALIC - Eye Exam Eye Exam: EOMI, Normal appearance, PERRL Pupil Exam: NORMAL ACCOMODATION - ENT Exam ENT Exam: Mucous Membranes Moist - Respiratory Exam Respiratory Exam: Clear to Ausculation Bilateral, NORMAL BREATHING PATTERN - Cardiovascular Exam Cardiovascular Exam: Irregular Rhythm, +S1, +S2 - GI/Abdominal Exam GI & Abdominal Exam: Soft, Normal Bowel Sounds - Rectal Exam Rectal Exam: Deferred - Neurological Exam Neurological Exam: Alert, Awake, CN II-XII Intact Additional comments: oriented x2 - Psychiatric Exam Psychiatric exam: Normal Mood - Skin Skin Exam: Normal Color, Warm Assessment and Plan - Assessment and Plan (Free Text) Assessment: 73 to AA male with pmh/o htn, prostate cA, ckd-3, ? UTI with diarrhea x 2 weeks, weakness, shaking, decreased uop, difficulty to ambulate vert high b un/cr, confusion, low bicarb, high wbc now blood c/s + ve for GNR urine analysis c/w uti, ct scan c/w moderate- severe microvascular changes, chronic left frontoparietal lacunar infarcts 1. GRAYSON on ckd-3 2. Gram negative sepsis, sec to E.coli, 3. high anion gap met. acidosis 4. R/o uremic encephalopathy 5. Expressive aphasia 6. Paraoxysmal A fib 7. Anemia 8. confusion ? sec to cva/TIA c/w iv abx, as per ID c/w epogen during hd PT/OT evaluation/ LANI placement f/u with neurology f/u with cardiology for A. fib, continue tele monitoring CT angiogram is negative for PE consider MRI of brain to r/o cva/TIA check rt UE doppler to r/o dvt for hemodialysis in am, f/u with social service for out pt hd unit placement s/p MRI of brain toady, no acute IC hemorrhage or infarct moderate to significant confluent white matter ischemic changes with scattered chronic basal nuclei and brain stem lacunar type infarcts moderate generalized volume loss
--- NOTE | 2018-08-23 13:49 | CP.PCM.PN ---
Subjective - Date & Time of Evaluation Date of Evaluation: 08/23/18 Time of Evaluation: 09:00 - Subjective Subjective: blood and urine + E Coli need 14 days rx await eval Objective - Vital Signs/Intake and Output Vital Signs (last 24 hours): Temp Pulse Resp BP Pulse Ox 98.9 F 86 20 148/87 96 08/23/18 08:24 08/23/18 08:24 08/23/18 08:24 08/23/18 08:24 08/23/18 08:24 - Medications Medications: Current Medications Acetaminophen (Tylenol 325mg Tab) 650 mg PO Q6 PRN PRN Reason: pain, fever Last Admin: 08/21/18 04:14 Dose: 650 mg Apixaban (Eliquis) 2.5 mg PO BID [facility] Last Admin: 08/23/18 11:08 Dose: 2.5 mg Epoetin Dariel (Procrit) 10,000 unit IV TTS [facility] Last Admin: 08/21/18 11:44 Dose: 10,000 unit Cefepime HCl (Maxipime Iv 1 Gm Premix) 1 gm in 50 mls @ 100 mls/hr IVPB Q24H [facility]; Protocol Last Admin: 08/22/18 17:42 Dose: 100 mls/hr Metoprolol Tartrate (Lopressor) 50 mg PO BID [facility] Last Admin: 08/23/18 11:11 Dose: 50 mg Temazepam (Restoril) 15 mg PO HS PRN PRN Reason: Sleep Last Admin: 08/22/18 22:09 Dose: 15 mg - Labs Labs: 08/23/18 06:36 08/23/18 06:36 PT 16.7 SECONDS (9.7-12.2) H 08/16/18 07:07 INR 1.5 08/16/18 07:07 APTT 34 SECONDS (21-34) 08/16/18 07:07 - Constitutional Appears: Non-toxic, Cachectic, Chronically Ill - Head Exam Head Exam: NORMOCEPHALIC - Eye Exam Eye Exam: absent: Scleral icterus - ENT Exam ENT Exam: Mucous Membranes Dry - Neck Exam Neck Exam: absent: Lymphadenopathy - Respiratory Exam Respiratory Exam: Decreased Breath Sounds - Cardiovascular Exam Cardiovascular Exam: REGULAR RHYTHM - GI/Abdominal Exam GI & Abdominal Exam: Distended - Rectal Exam Rectal Exam: Deferred - Exam Exam: NORMAL INSPECTION - Extremities Exam Extremities Exam: absent: Pedal Edema - Back Exam Back Exam: absent: CVA tenderness (L), CVA tenderness (R) - Neurological Exam Neurological Exam: Alert, Awake Assessment and Plan (1) Prostate cancer Status: Acute (2) Dehydration Status: Acute (3) Diarrhea Status: Acute (4) UTI (urinary tract infection) Status: Acute (5) Sepsis Status: Acute (6) Acute renal failure Status: Acute (7) Altered mental state Status: Acute (8) Anemia Status: Acute (9) Metabolic acidosis Status: Acute
--- NOTE | 2018-08-23 13:57 | CP.PCM.PN ---
<Consuelo Copeland - Last Filed: 08/23/18 16:46> Subjective - Date & Time of Evaluation Date of Evaluation: 08/23/18 Time of Evaluation: 12:30 - Subjective Subjective: Neurology Consultation Follow-Up Note: Mr. Baptiste was evaluated this afternoon at bedside. He is in much better spirits today, and was sitting up in bed eating lunch during this interview. He admits to improvements in his appetite and in general. Also admits to improvements in his speech and resolution of RUE shakiness. Mr. Baptiste offers complaints today. Denies headache, visual changes, slurred speech, dizziness, chest pain, shortness of breath, nausea/vomiting, unsteadiness. No acute overnight events per nursing staff. MRI Brain ordered last week was done this morning. Objective - Vital Signs/Intake and Output Vital Signs (last 24 hours): Temp Pulse Resp BP Pulse Ox 98.9 F 86 20 148/87 96 08/23/18 08:24 08/23/18 08:24 08/23/18 08:24 08/23/18 08:24 08/23/18 08:24 - Medications Medications: Current Medications Acetaminophen (Tylenol 325mg Tab) 650 mg PO Q6 PRN PRN Reason: pain, fever Last Admin: 08/21/18 04:14 Dose: 650 mg Apixaban (Eliquis) 2.5 mg PO BID [facility] Last Admin: 08/23/18 11:08 Dose: 2.5 mg Epoetin Dariel (Procrit) 10,000 unit IV TTS [facility] Last Admin: 08/21/18 11:44 Dose: 10,000 unit Cefepime HCl (Maxipime Iv 1 Gm Premix) 1 gm in 50 mls @ 100 mls/hr IVPB Q24H [facility]; Protocol Last Admin: 08/22/18 17:42 Dose: 100 mls/hr Metoprolol Tartrate (Lopressor) 50 mg PO BID [facility] Last Admin: 08/23/18 11:11 Dose: 50 mg Temazepam (Restoril) 15 mg PO HS PRN PRN Reason: Sleep Last Admin: 08/22/18 22:09 Dose: 15 mg - Labs Labs: 08/23/18 06:36 08/23/18 06:36 PT 16.7 SECONDS (9.7-12.2) H 08/16/18 07:07 INR 1.5 08/16/18 07:07 APTT 34 SECONDS (21-34) 08/16/18 07:07 - Constitutional Appears: Well, Non-toxic, No Acute Distress - Head Exam Head Exam: ATRAUMATIC, NORMAL INSPECTION, NORMOCEPHALIC - Eye Exam Eye Exam: EOMI, Normal appearance Pupil Exam: NORMAL ACCOMODATION, PERRL - ENT Exam ENT Exam: Mucous Membranes Moist, Normal Exam - Neck Exam Neck Exam: Full ROM - Respiratory Exam Respiratory Exam: NORMAL BREATHING PATTERN - Extremities Exam Extremities Exam: Full ROM - Neurological Exam Neurological Exam: Alert, Awake, CN II-XII Intact, Oriented x3 Neuro motor strength exam: Left Upper Extremity: 5, Right Upper Extremity: 5, Left Lower Extremity: 5, Right Lower Extremity: 5 Additional comments: Speech clear, fluid, no slurring; repetition is intact; no expressive aphasia noted; no pronator drift bilaterally; finger to nose normal; no ataxia noted; no tremor noted today to RUE. - Psychiatric Exam Psychiatric exam: Normal Affect, Normal Mood - Skin Skin Exam: Normal Color Assessment and Plan (1) Ischemic stroke Assessment & Plan: Imaging: -MRI Brain (08/20/18): No acute intracranial hemorrhage or infarct. Moderate to significant confluent white matter ischemic changes with scattered chronic bilateral basal nuclei and brainstem lacunar type infarcts. Moderate generalized volume loss. -CT Head W/O Contrast (08/15/18): moderate to severe chronic microvascular ischemic changes. Chronic lacunar infacrst in the left caudate head and basal ganglia. Small chronic infarct in the posterior left frontal parietal white matter. Sinus mucosal disease. -CT Head W/O Contrast (08/12/18): chronic microvascular ischemic changes. -RUE shakiness and hand asterixis not noted during today's exam---has resolved. -Continue PT/OT. -Continue Eliquis 2.5 mg PO BID. -Rehab placement if patient agrees. -Please notify neuro team of any acute changes in condition. Case reviewed and discussed with Dr. Zheng. Thank you for allowing us to participate in the care of this patient. Status: Acute <Khushbu Zheng - Last Filed: 08/23/18 17:02> Objective - Vital Signs/Intake and Output Vital Signs (last 24 hours): Temp Pulse Resp BP Pulse Ox 98.4 F 75 20 134/69 99 08/23/18 15:00 08/23/18 15:00 08/23/18 15:00 08/23/18 15:00 08/23/18 15:00 Intake and Output: 08/23/18 08/23/18 06:59 18:59 Intake Total 300 Balance 300 - Medications Medications: Current Medications Acetaminophen (Tylenol 325mg Tab) 650 mg PO Q6 PRN PRN Reason: pain, fever Last Admin: 08/21/18 04:14 Dose: 650 mg Apixaban (Eliquis) 2.5 mg PO BID [facility] Last Admin: 08/23/18 11:08 Dose: 2.5 mg Epoetin Dariel (Procrit) 10,000 unit IV TTS [facility] Last Admin: 08/21/18 11:44 Dose: 10,000 unit Cefepime HCl (Maxipime Iv 1 Gm Premix) 1 gm in 50 mls @ 100 mls/hr IVPB Q24H [facility]; Protocol Last Admin: 08/22/18 17:42 Dose: 100 mls/hr Metoprolol Tartrate (Lopressor) 50 mg PO BID [facility] Last Admin: 08/23/18 11:11 Dose: 50 mg Temazepam (Restoril) 15 mg PO HS PRN PRN Reason: Sleep Last Admin: 08/22/18 22:09 Dose: 15 mg - Labs Labs: 08/23/18 06:36 08/23/18 06:36 PT 16.7 SECONDS (9.7-12.2) H 08/16/18 07:07 INR 1.5 08/16/18 07:07 APTT 34 SECONDS (21-34) 08/16/18 07:07 Assessment and Plan - Assessment and Plan (Free Text) Assessment: I saw this patient and discussed the case with Consuelo Henriquez NP. I agree with the assessment and plan. MR Baptiste has completed his stroke workup and is now back to baseline. PLease reconsult prn. Thankgaby zheng
--- NOTE | 2018-08-23 17:39 | PN ---
DATE: 08/23/2018 SUBJECTIVE: The patient is oriented to place. He denies any chest pain. PHYSICAL EXAMINATION VITAL SIGNS: Blood pressure 143/87, heart rate 86, temperature 98.9, respirations 20. HEENT: Pale conjunctivae. CHEST: Clear. HEART: S1, S2 regular. EXTREMITIES: No edema. LABORATORY DATA: Hemoglobin and hematocrit 7.9 and 24.9. White count and platelet count are within normal limits. Today's BUN and creatinine are 38 and 6.5 respectively. Rest of his SMA-7 is within normal limit. Today's alkaline phosphatase is 39, ammonia level is elevated at 115. Brain MRI revealed no acute intracranial hemorrhage or infarct. Moderate to significant white matter ischemic changes with scattered chronic bilateral basal nuclei and brainstem old lacunar infarct. ASSESSMENT: 1. Paroxysmal atrial fibrillation. 2. Old bilateral basal ganglia and brainstem old lacunar infarct. 3. End-stage renal disease, requiring hemodialysis. 4. Moderate to large bilateral pleural effusion. 5. Worsening anemia. RECOMMENDATIONS: Continue IV Maxipime 1 g daily, Procrit 10,000 units TTS. Hold Eliquis in view of worsening anemia until a GI evaluation is obtained and obtain stool occult blood. Dav Hernandez MD
[2018-08-23] MEDS: Cefepime IV 1 gm in Dextrose 1 GM/50 ML BAG IVPB SCH (18:10)
--- NOTE | 2018-08-23 19:42 | CARD ---
APPROVED REPORT Date of service: 08/20/2018 EKG Measurement Heart [id number] <Conclusion> Normal sinus rhythm Possible Left atrial enlargement Nonspecific T wave abnormality Abnormal ECG
--- NOTE | 2018-08-23 19:49 | CARD ---
APPROVED REPORT Date of service: 08/19/2018 EKG Measurement Heart [id number] <Conclusion> Raid atrial fibrillation occasional premature ventricular complexes ST & T wave abnormality, consider inferior ischemia Abnormal ECG
--- NOTE | 2018-08-23 21:15 | CARD ---
APPROVED REPORT Date of service: 08/21/2018 EKG Measurement Heart [id number] CO [id number] <Conclusion> Normal sinus rhythm Nonspecific ST abnormality Abnormal ECG
--- NOTE | 2018-08-23 23:53 | CP.PCM.PN ---
Subjective - Date & Time of Evaluation Date of Evaluation: 08/23/18 Time of Evaluation: 10:10 - Subjective Subjective: clinically same Objective - Vital Signs/Intake and Output Vital Signs (last 24 hours): Temp Pulse Resp BP Pulse Ox 98.4 F 72 20 134/69 99 08/23/18 15:00 08/23/18 15:45 08/23/18 15:00 08/23/18 15:00 08/23/18 15:00 Intake and Output: 08/23/18 08/24/18 18:59 06:59 Intake Total 300 Balance 300 - Medications Medications: Current Medications Acetaminophen (Tylenol 325mg Tab) 650 mg PO Q6 PRN PRN Reason: pain, fever Last Admin: 08/21/18 04:14 Dose: 650 mg Apixaban (Eliquis) 2.5 mg PO BID [facility] Last Admin: 08/23/18 11:08 Dose: 2.5 mg Epoetin Dariel (Procrit) 10,000 unit IV TTS [facility] Last Admin: 08/21/18 11:44 Dose: 10,000 unit Cefepime HCl (Maxipime Iv 1 Gm Premix) 1 gm in 50 mls @ 100 mls/hr IVPB Q24H [facility]; Protocol Last Admin: 08/23/18 18:10 Dose: 100 mls/hr Metoprolol Tartrate (Lopressor) 50 mg PO BID [facility] Last Admin: 08/23/18 18:07 Dose: 50 mg Temazepam (Restoril) 15 mg PO HS PRN PRN Reason: Sleep Last Admin: 08/22/18 22:09 Dose: 15 mg - Labs Labs: 08/23/18 06:36 08/23/18 06:36 PT 16.7 SECONDS (9.7-12.2) H 08/16/18 07:07 INR 1.5 08/16/18 07:07 APTT 34 SECONDS (21-34) 08/16/18 07:07 - Constitutional Appears: Well - Head Exam Head Exam: ATRAUMATIC, NORMAL INSPECTION, NORMOCEPHALIC - Eye Exam Eye Exam: EOMI, Normal appearance, PERRL Pupil Exam: NORMAL ACCOMODATION, PERRL - ENT Exam ENT Exam: Mucous Membranes Moist, Normal Exam - Neck Exam Neck Exam: Full ROM, Normal Inspection. absent: Lymphadenopathy - Respiratory Exam Respiratory Exam: Decreased Breath Sounds - Cardiovascular Exam Cardiovascular Exam: REGULAR RHYTHM, +S1, +S2 - GI/Abdominal Exam GI & Abdominal Exam: Soft, Diminished Bowel Sounds - Rectal Exam Rectal Exam: Deferred
[2018-08-24 06:54] LABS: HEMOGLOBIN 7.4 g/dL (12.0-18.0); MEAN CELL VOLUME 65.3 fL (80.0-94.0); MEAN CORPUSCULAR HEMOGLOBIN 21.2 pg (27.0-31.0); MEAN CORPUSCULAR HGB CONC 32.5 g/dL (33.0-37.0); RBC 3.49 Mil/uL (4.40-5.90); RED CELL DISTRIBUTION WIDTH 18.4 % (11.5-14.5); WHITE BLOOD COUNT 6.1 K/uL (4.8-10.8)
[2018-08-24 07:04] LABS: INR 1.3; PROTHROMBIN TIME 14.3 SECONDS (9.7-12.2)
[2018-08-24 08:15] LABS: CALCIUM 6.8 mg/dl (8.6-10.4)
--- NOTE | 2018-08-24 11:01 | CP.PCM.CON ---
<Javi Lares - Last Filed: 08/24/18 11:03> History of Present Illness - History of Present Illness History of Present Illness: GI Fellow TRAM, Consult note. Jorge Baptiste, 73M, hx of CKD, prostate cancer, presented 12 days ago with severe illness, bacteremia, requiring dialysis. He is now out of the ICU, stable and being treated with HD regularly. We were consulted for anemia. He has chronic anemia for which he is receiving EPO with HD. He denies seeing blood in his stool. He has seen blood in his urine in the past, and recent U/A findings support this. Iron panel is not consistent with iron deficiency anemia. He denies abdominal pain, diarrhea, vomiting, fevers at this time. Eliquis (afib) is on HOLD per cardio until anemia evaluate by GI. PMHx - as above PSHx - R IJ. Denies colonoscopy in the past. He denies EGD. FMHx - No family hx of stomach or colon cancer SocHx - Denies tobacco or alcohol use 12pt ROS completed and negative except for above. Past Patient History - Past Medical History & Family History Past Medical History?: Yes - Past Social History Smoking Status: Never Smoked - CARDIAC Hx Hypertension: Yes - RENAL Hx Chronic Kidney Disease: Yes - MUSCULOSKELETAL/RHEUMATOLOGICAL Hx Falls: No (denies) - GASTROINTESTINAL Hx Gastritis: Yes - GENITOURINARY/GYNECOLOGICAL Hx Prostate Cancer: Yes (per ER record) Hx Urinary Tract Infection: Yes - PSYCHIATRIC Hx Substance Use: No Meds Allergies/Adverse Reactions: Allergies Allergy/AdvReac Type Severity Reaction Status Date / Time No Known Allergies Allergy Verified 04/20/14 15:54 - Medications Medications: Current Medications Acetaminophen (Tylenol 325mg Tab) 650 mg PO Q6 PRN PRN Reason: pain, fever Last Admin: 08/21/18 04:14 Dose: 650 mg Apixaban (Eliquis) 2.5 mg PO BID [facility] Last Admin: 08/23/18 11:08 Dose: 2.5 mg Epoetin Dariel (Procrit) 10,000 unit IV TTS [facility] Last Admin: 08/21/18 11:44 Dose: 10,000 unit Cefepime HCl (Maxipime Iv 1 Gm Premix) 1 gm in 50 mls @ 100 mls/hr IVPB Q24H [facility]; Protocol Last Admin: 08/23/18 18:10 Dose: 100 mls/hr Metoprolol Tartrate (Lopressor) 50 mg PO BID [facility] Last Admin: 08/24/18 10:47 Dose: 50 mg Temazepam (Restoril) 15 mg PO HS PRN PRN Reason: Sleep Last Admin: 08/22/18 22:09 Dose: 15 mg Physical Exam - Constitutional Appears: Non-toxic, No Acute Distress - Head Exam Head Exam: NORMAL INSPECTION, NORMOCEPHALIC - Eye Exam Eye Exam: EOMI, Normal appearance - ENT Exam ENT Exam: Mucous Membranes Moist, Normal Exam - Respiratory Exam Respiratory Exam: Clear to Auscultation Bilateral, NORMAL BREATHING PATTERN - Cardiovascular Exam Cardiovascular Exam: REGULAR RHYTHM, +S1, +S2 - GI/Abdominal Exam GI & Abdominal Exam: Normal Bowel Sounds, Soft. absent: Organomegaly, Tenderness - Extremities Exam Extremities exam: Positive for: normal inspection - Neurological Exam Neurological exam: Alert, CN II-XII Intact, Oriented x3 - Skin Skin Exam: Dry, Normal Color Results - Vital Signs Recent Vital Signs: Last Vital Signs Temp 98.9 F 08/24/18 07:40 Pulse 76 08/24/18 07:40 Resp 20 08/24/18 07:40 BP 147/79 08/24/18 07:40 Pulse Ox 96 08/24/18 07:40 - Labs Result Diagrams: 08/24/18 06:44 08/24/18 06:44 Labs: Laboratory Results - last 24 hr 08/24/18 08/24/18 08/24/18 06:44 06:44 06:44 WBC 6.1 RBC 3.49 L Hgb 7.4 L Hct 22.8 L MCV 65.3 L MCH 21.2 L MCHC 32.5 L RDW 18.4 H Plt Count 240 MPV 9.0 PT 14.3 H INR 1.3 APTT 33 Sodium 135 Potassium 4.1 Chloride 100 Carbon Dioxide 24 Anion Gap 15 BUN 51 H Creatinine 7.6 H* Est GFR ( Amer) 9 Est GFR (Non-Af Amer) 7 Random Glucose 91 Calcium 6.8 L Assessment & Plan - Assessment and Plan (Free Text) Assessment: #Anemia #Afib on Eiquis #ESRD on HD, EPO #Prostate cancer #CVA PLAN: -Cardio recommending GI evaluation into anemia prior to restarting for Afib. -Anemia is likely multifactorial. -Plan for EGD/colonoscopy to r/o GI source -Continue to HOLD Eliquis -Monitor Hb daily -Liquid diet today, CLD tomorrow. - Date & Time Date: 08/24/18 Time: 11:07 <Beau Nicholas - Last Filed: 08/24/18 14:11> Meds - Medications Medications: Current Medications Acetaminophen (Tylenol 325mg Tab) 650 mg PO Q6 PRN PRN Reason: pain, fever Last Admin: 08/21/18 04:14 Dose: 650 mg Apixaban (Eliquis) 2.5 mg PO BID [facility] Last Admin: 08/23/18 11:08 Dose: 2.5 mg Epoetin Dariel (Procrit) 10,000 unit IV TTS [facility] Last Admin: 08/21/18 11:44 Dose: 10,000 unit Cefepime HCl (Maxipime Iv 1 Gm Premix) 1 gm in 50 mls @ 100 mls/hr IVPB Q24H [facility]; Protocol Last Admin: 08/23/18 18:10 Dose: 100 mls/hr Metoprolol Tartrate (Lopressor) 50 mg PO BID [facility] Last Admin: 08/24/18 10:47 Dose: 50 mg Temazepam (Restoril) 15 mg PO HS PRN PRN Reason: Sleep Last Admin: 08/22/18 22:09 Dose: 15 mg Results - Vital Signs Recent Vital Signs: Last Vital Signs Temp 98.9 F 08/24/18 07:40 Pulse 76 08/24/18 07:40 Resp 20 08/24/18 07:40 BP 147/79 08/24/18 07:40 Pulse Ox 96 08/24/18 07:40 - Labs Result Diagrams: 08/24/18 06:44 08/24/18 06:44 Labs: Laboratory Results - last 24 hr 08/24/18 08/24/18 08/24/18 06:44 06:44 06:44 WBC 6.1 RBC 3.49 L Hgb 7.4 L Hct 22.8 L MCV 65.3 L MCH 21.2 L MCHC 32.5 L RDW 18.4 H Plt Count 240 MPV 9.0 PT 14.3 H INR 1.3 APTT 33 Sodium 135 Potassium 4.1 Chloride 100 Carbon Dioxide 24 Anion Gap 15 BUN 51 H Creatinine 7.6 H* Est GFR ( Amer) 9 Est GFR (Non-Af Amer) 7 Random Glucose 91 Calcium 6.8 L Attending/Attestation - Attestation I have personally seen and examined this patient.: Yes I have fully participated in the care of the patient.: Yes I have reviewed all pertinent clinical information: Yes Notes (Text): 08/24/18 14:07 I have seen and examined patient with GI fellow. Agree with above documentation with the following additions. In brief, this is a 73 year old male with history of paroxysmal atrial fibrillation, CVA, ESRD on HD, prostate cancer, chronic anemia who initially presented to hospital with fever and bacteremia. GI called for evaluation of worsening anemia. He was previously on eliquis for the atrial fibrillation which has been held in light of progressive anemia. He denies abdominal pain, nausea, vomiting, fever/chills, weight loss, or rectal bleeding. No prior endoscopic evaluation. Paroxysmal atrial fibrillation on eliquis (held) ESRD on HD CVA Prostate cancer Chronic anemia, progressively worsening despite epo therapy - Liquid diet as tolerated - Continue to monitor H/H - Patient would benefit from EGD/colonoscopy for further evaluation of anemia prior to resuming Eliquis therapy, will plan for to allow for drug washout period and minimize potential bleeding related complications. - Follow up cardiology recommendations
--- NOTE | 2018-08-24 12:31 | CP.PCM.PN ---
Subjective - Date & Time of Evaluation Date of Evaluation: 08/24/18 Time of Evaluation: 12:30 - Subjective Subjective: pt denies any sob, no cp, still confused, h/h is dropping after eliquis therapy h/h is slowly dropping and eliquis is discontinued for EGD and colonoscopy Objective - Vital Signs/Intake and Output Vital Signs (last 24 hours): Temp Pulse Resp BP Pulse Ox 98.9 F 76 20 147/79 96 08/24/18 07:40 08/24/18 07:40 08/24/18 07:40 08/24/18 07:40 08/24/18 07:40 - Medications Medications: Current Medications Acetaminophen (Tylenol 325mg Tab) 650 mg PO Q6 PRN PRN Reason: pain, fever Last Admin: 08/21/18 04:14 Dose: 650 mg Apixaban (Eliquis) 2.5 mg PO BID [facility] Last Admin: 08/23/18 11:08 Dose: 2.5 mg Epoetin Dariel (Procrit) 10,000 unit IV TTS [facility] Last Admin: 08/21/18 11:44 Dose: 10,000 unit Cefepime HCl (Maxipime Iv 1 Gm Premix) 1 gm in 50 mls @ 100 mls/hr IVPB Q24H [facility]; Protocol Last Admin: 08/23/18 18:10 Dose: 100 mls/hr Metoprolol Tartrate (Lopressor) 50 mg PO BID [facility] Last Admin: 08/24/18 10:47 Dose: 50 mg Temazepam (Restoril) 15 mg PO HS PRN PRN Reason: Sleep Last Admin: 08/22/18 22:09 Dose: 15 mg - Labs Labs: 08/24/18 06:44 08/24/18 06:44 PT 14.3 SECONDS (9.7-12.2) H 08/24/18 06:44 INR 1.3 08/24/18 06:44 APTT 33 SECONDS (21-34) 08/24/18 06:44 - Constitutional Appears: Well, Non-toxic, No Acute Distress - Head Exam Head Exam: ATRAUMATIC - Eye Exam Eye Exam: EOMI, Normal appearance, PERRL Pupil Exam: NORMAL ACCOMODATION - ENT Exam ENT Exam: Mucous Membranes Moist - Neck Exam Neck Exam: Full ROM - Respiratory Exam Respiratory Exam: Clear to Ausculation Bilateral, NORMAL BREATHING PATTERN - Cardiovascular Exam Cardiovascular Exam: Irregular Rhythm, +S1, +S2 - GI/Abdominal Exam GI & Abdominal Exam: Soft, Normal Bowel Sounds - Rectal Exam Rectal Exam: Deferred - Extremities Exam Extremities Exam: Full ROM, Normal Inspection Additional comments: no edema of legs - Neurological Exam Neurological Exam: Alert, Awake, CN II-XII Intact Additional comments: oriented x2 - Psychiatric Exam Psychiatric exam: Normal Mood - Skin Skin Exam: Normal Color, Warm Assessment and Plan - Assessment and Plan (Free Text) Assessment: 73 to AA male with pmh/o htn, prostate cA, ckd-3, ? UTI with diarrhea x 2 weeks, weakness, shaking, decreased uop, difficulty to ambulate vert high b un/cr, confusion, low bicarb, high wbc now blood c/s + ve for GNR urine analysis c/w uti, ct scan c/w moderate- severe microvascular changes, chronic left frontoparietal lacunar infarcts 1. GRAYSON on ckd-3 2. Gram negative sepsis, sec to E.coli, 3. high anion gap met. acidosis 4. R/o uremic encephalopathy 5. Expressive aphasia 6. Paroxysmal A fib 7. Anemia 8. confusion ? sec to cva/TIA c/w iv abx, as per ID c/w epogen during hd PT/OT evaluation/ LANI placement f/u with neurology f/u with cardiology for A. fib, continue tele monitoring CT angiogram is negative for PE consider MRI of brain to r/o cva/TIA check rt UE doppler to r/o dvt for hemodialysis in am, f/u with social service for out pt hd unit placement s/p MRI of brain toady, no acute IC hemorrhage or infarct moderate to significant confluent white matter ischemic changes with scattered chronic basal nuclei and brain stem lacunar type infarcts moderate generalized volume loss for hd today, for EGD/colonoscopy in am f/u with neurology, cardiology
--- NOTE | 2018-08-24 12:56 | CP.PCM.PN ---
Subjective - Date & Time of Evaluation Date of Evaluation: 08/24/18 Time of Evaluation: 10:20 - Subjective Subjective: clinically same Objective - Vital Signs/Intake and Output Vital Signs (last 24 hours): Temp Pulse Resp BP Pulse Ox 98.9 F 76 20 147/79 96 08/24/18 07:40 08/24/18 07:40 08/24/18 07:40 08/24/18 07:40 08/24/18 07:40 - Medications Medications: Current Medications Acetaminophen (Tylenol 325mg Tab) 650 mg PO Q6 PRN PRN Reason: pain, fever Last Admin: 08/21/18 04:14 Dose: 650 mg Apixaban (Eliquis) 2.5 mg PO BID [facility] Last Admin: 08/23/18 11:08 Dose: 2.5 mg Epoetin Dariel (Procrit) 10,000 unit IV TTS [facility] Last Admin: 08/21/18 11:44 Dose: 10,000 unit Cefepime HCl (Maxipime Iv 1 Gm Premix) 1 gm in 50 mls @ 100 mls/hr IVPB Q24H [facility]; Protocol Last Admin: 08/23/18 18:10 Dose: 100 mls/hr Metoprolol Tartrate (Lopressor) 50 mg PO BID [facility] Last Admin: 08/24/18 10:47 Dose: 50 mg Temazepam (Restoril) 15 mg PO HS PRN PRN Reason: Sleep Last Admin: 08/22/18 22:09 Dose: 15 mg - Labs Labs: 08/24/18 06:44 08/24/18 06:44 PT 14.3 SECONDS (9.7-12.2) H 08/24/18 06:44 INR 1.3 08/24/18 06:44 APTT 33 SECONDS (21-34) 08/24/18 06:44 - Constitutional Appears: Well - Head Exam Head Exam: ATRAUMATIC, NORMAL INSPECTION, NORMOCEPHALIC - Eye Exam Eye Exam: EOMI, Normal appearance, PERRL Pupil Exam: NORMAL ACCOMODATION, PERRL - ENT Exam ENT Exam: Mucous Membranes Moist, Normal Exam - Neck Exam Neck Exam: Full ROM, Normal Inspection. absent: Lymphadenopathy - Respiratory Exam Respiratory Exam: Decreased Breath Sounds - Cardiovascular Exam Cardiovascular Exam: REGULAR RHYTHM, +S1, +S2 - GI/Abdominal Exam GI & Abdominal Exam: Soft, Diminished Bowel Sounds - Rectal Exam Rectal Exam: Deferred
--- NOTE | 2018-08-24 15:01 | CP.PCM.PN ---
Subjective - Date & Time of Evaluation Date of Evaluation: 08/24/18 Time of Evaluation: 07:00 - Subjective Subjective: VASCULAR SURGERY PROGRESS NOTE FOR DR. MOE Patient seen and examined at bedside. Denies any pain. Continuing with dialysis via right permacath. Objective - Vital Signs/Intake and Output Vital Signs (last 24 hours): Temp Pulse Resp BP Pulse Ox 98.9 F 76 20 147/79 96 08/24/18 07:40 08/24/18 07:40 08/24/18 07:40 08/24/18 07:40 08/24/18 07:40 - Medications Medications: Current Medications Acetaminophen (Tylenol 325mg Tab) 650 mg PO Q6 PRN PRN Reason: pain, fever Last Admin: 08/21/18 04:14 Dose: 650 mg Apixaban (Eliquis) 2.5 mg PO BID [facility] Last Admin: 08/23/18 11:08 Dose: 2.5 mg Epoetin Dariel (Procrit) 10,000 unit IV TTS [facility] Last Admin: 08/21/18 11:44 Dose: 10,000 unit Cefepime HCl (Maxipime Iv 1 Gm Premix) 1 gm in 50 mls @ 100 mls/hr IVPB Q24H [facility]; Protocol Last Admin: 08/23/18 18:10 Dose: 100 mls/hr Metoprolol Tartrate (Lopressor) 50 mg PO BID [facility] Last Admin: 08/24/18 10:47 Dose: 50 mg Temazepam (Restoril) 15 mg PO HS PRN PRN Reason: Sleep Last Admin: 08/22/18 22:09 Dose: 15 mg - Labs Labs: 08/24/18 06:44 08/24/18 06:44 PT 14.3 SECONDS (9.7-12.2) H 08/24/18 06:44 INR 1.3 08/24/18 06:44 APTT 33 SECONDS (21-34) 08/24/18 06:44 - Constitutional Appears: Non-toxic, No Acute Distress - Neck Exam Additional comments: Right Permacath - Respiratory Exam Respiratory Exam: NORMAL BREATHING PATTERN. absent: Respiratory Distress - Cardiovascular Exam Cardiovascular Exam: +S1, +S2 Assessment and Plan - Assessment and Plan (Free Text) Assessment: 73 YO M with PMHx of ESRD on dialysis (T/T/S), prostate cancer, HTN, and multiple TIA, who was found to have GRAYSON, UTI, bacteremia, paroxysmal A fib, now s/p Right permacath POD#6 - Vein mapping completed - AV fistula Thursday - Left arm restrictions - Eliquis held since 08/23 AM - Discussed plan with Dr. Marlys Mercado PGY-4
--- NOTE | 2018-08-24 15:46 | PN ---
DATE: 08/24/2018 SUBJECTIVE: The patient is oriented to place, time and person. He denies any chest pain or shortness of breath. PHYSICAL EXAMINATION VITAL SIGNS: Blood pressure 147/79, heart rate 76, temperature 98.9, respirations 20. HEENT: Pale conjunctivae. CHEST: Clear. HEART: S1, S2 regular. EXTREMITIES: No edema. LABORATORY DATA: Hemoglobin and hematocrit 7.1 and 22.8. White count and platelet count are within normal limits. Today's BUN and creatinine are 51 and 7.6 respectively. Rest of his SMA-7 is within normal limit. The patient was evaluated by the gastroenterology team today. ASSESSMENT: 1. Paroxysmal atrial fibrillation. 2. Bilateral basal ganglia as well as a brainstem lacunar infarct. 3. End-stage renal disease, on hemodialysis. 4. Anemia, lower gastrointestinal bleeding. 5. [id number] bilateral pleural effusion. 6. Escherichia coli urosepsis. RECOMMENDATIONS: Continue Lopressor 50 mg twice a day, IV Maxipime 1 g daily. Hold on Eliquis until GI clearance is obtained. Dav Hernandez MD
[2018-08-24] MEDS: Epoetin Alfa 10,000 unit/ml Dialysis IV SCH (18:20)
[2018-08-24] MEDS: Cefepime IV 1 gm in Dextrose 1 GM/50 ML BAG IVPB SCH (18:52)
--- NOTE | 2018-08-25 06:40 | CP.PCM.PN ---
<aJvi Lares - Last Filed: 08/25/18 13:32> Subjective - Date & Time of Evaluation Date of Evaluation: 08/25/18 Time of Evaluation: 06:39 - Subjective Subjective: Patient is doing ok this AM. No complaints. He was confused on the plan. I re- oriented him regarding time of procedures. He confirms understanding now. Objective - Vital Signs/Intake and Output Vital Signs (last 24 hours): Temp Pulse Resp BP Pulse Ox 99 F 65 20 146/78 100 08/25/18 04:41 08/25/18 04:41 08/25/18 04:41 08/25/18 04:41 08/25/18 04:41 - Medications Medications: Current Medications Acetaminophen (Tylenol 325mg Tab) 650 mg PO Q6 PRN PRN Reason: pain, fever Last Admin: 08/21/18 04:14 Dose: 650 mg Apixaban (Eliquis) 2.5 mg PO BID [facility] Last Admin: 08/23/18 11:08 Dose: 2.5 mg Bisacodyl (Dulcolax) 10 mg PO ONCE ONE Stop: 08/25/18 16:01 Epoetin Dariel (Procrit) 10,000 unit IV TTS [facility] Last Admin: 08/24/18 18:20 Dose: 10,000 unit Cefepime HCl (Maxipime Iv 1 Gm Premix) 1 gm in 50 mls @ 100 mls/hr IVPB Q24H [facility]; Protocol Last Admin: 08/24/18 18:52 Dose: 100 mls/hr Metoprolol Tartrate (Lopressor) 50 mg PO BID [facility] Last Admin: 08/24/18 18:53 Dose: 50 mg Polyethylene Glycol/Electrolytes (Golytely) 4,000 ml PO ONCE ONE Stop: 08/25/18 10:01 Temazepam (Restoril) 15 mg PO HS PRN PRN Reason: Sleep Last Admin: 08/22/18 22:09 Dose: 15 mg - Labs Labs: 08/24/18 06:44 08/24/18 06:44 PT 14.3 SECONDS (9.7-12.2) H 08/24/18 06:44 INR 1.3 08/24/18 06:44 APTT 33 SECONDS (21-34) 08/24/18 06:44 - Constitutional Appears: Non-toxic, No Acute Distress - Head Exam Head Exam: ATRAUMATIC, NORMAL INSPECTION - Eye Exam Eye Exam: EOMI, Normal appearance - ENT Exam ENT Exam: Mucous Membranes Moist, Normal Exam - Respiratory Exam Respiratory Exam: Clear to Ausculation Bilateral, NORMAL BREATHING PATTERN - Cardiovascular Exam Cardiovascular Exam: REGULAR RHYTHM, +S1, +S2 - GI/Abdominal Exam GI & Abdominal Exam: Soft, Normal Bowel Sounds. absent: Tenderness - Neurological Exam Neurological Exam: Alert, Awake, Oriented x3 - Psychiatric Exam Psychiatric exam: Normal Affect, Normal Mood - Skin Skin Exam: Dry, Normal Color Assessment and Plan - Assessment and Plan (Free Text) Assessment: #Anemia #Afib on Eiquis #ESRD on HD, EPO #Prostate cancer #CVA PLAN: -Cardio recommending GI evaluation into anemia prior to restarting Eliquis for Afib. -Anemia is likely multifactorial. -Plan for EGD/colonoscopy to r/o GI source -Continue to HOLD Eliquis -Monitor Hb daily -Start bowel prep today -CLD today. NPO PM. <Beau Nicholas Y - Last Filed: 08/25/18 13:40> Objective - Vital Signs/Intake and Output Vital Signs (last 24 hours): Temp Pulse Resp BP Pulse Ox 98.1 F 58 L 18 144/81 100 08/25/18 07:00 08/25/18 11:46 08/25/18 07:00 08/25/18 07:00 08/25/18 07:00 Intake and Output: 08/25/18 08/25/18 06:59 18:59 Output Total 175 Balance -175 - Medications Medications: Current Medications Acetaminophen (Tylenol 325mg Tab) 650 mg PO Q6 PRN PRN Reason: pain, fever Last Admin: 08/21/18 04:14 Dose: 650 mg Apixaban (Eliquis) 2.5 mg PO BID [facility] Last Admin: 08/23/18 11:08 Dose: 2.5 mg Bisacodyl (Dulcolax) 10 mg PO ONCE ONE Stop: 08/25/18 16:01 Epoetin Dariel (Procrit) 10,000 unit IV TTS [facility] Last Admin: 08/24/18 18:20 Dose: 10,000 unit Cefepime HCl (Maxipime Iv 1 Gm Premix) 1 gm in 50 mls @ 100 mls/hr IVPB Q24H [facility]; Protocol Last Admin: 08/24/18 18:52 Dose: 100 mls/hr Metoprolol Tartrate (Lopressor) 50 mg PO BID [facility] Last Admin: 08/25/18 09:28 Dose: 50 mg Temazepam (Restoril) 15 mg PO HS PRN PRN Reason: Sleep Last Admin: 08/22/18 22:09 Dose: 15 mg - Labs Labs: 08/24/18 06:44 08/24/18 06:44 PT 14.3 SECONDS (9.7-12.2) H 08/24/18 06:44 INR 1.3 08/24/18 06:44 APTT 33 SECONDS (21-34) 08/24/18 06:44 Attending/Attestation - Attestation I have personally seen and examined this patient.: Yes I have fully participated in the care of the patient.: Yes I have reviewed all pertinent clinical information, including history, physical exam and plan: Yes Notes (Text): 08/25/18 13:38 I have seen and examined patient with GI fellow. No acute events overnight, he is seen resting in bed comfortably. He denies abdominal pain, nausea, vomiting, fever/chills. Currently in process of consuming bowel preparation for planned colonoscopy tomorrow. Review of vitals from today are normal. Atrial fibrillation on eliquis (held) ESRD on HD Anemia History of prostate cancer - Liquid diet as tolerated - H/H stable, continue to monitor - Patient planned for EGD/colonoscopy tomorrow for further evaluation of anemia. NPO after midnight.
[2018-08-25] MEDS ORDERED: Peg-Electrolyte Oral Soln 4L (Golytely) PO ONE (10:00)
--- NOTE | 2018-08-25 12:49 | CP.PCM.PN ---
Subjective - Date & Time of Evaluation Date of Evaluation: 08/25/18 Time of Evaluation: 12:49 - Subjective Subjective: pt denies any sob, still confused, slowly improving for possible egd/colonoscopy in am for hd in am Objective - Vital Signs/Intake and Output Vital Signs (last 24 hours): Temp Pulse Resp BP Pulse Ox 98.1 F 58 L 18 144/81 100 08/25/18 07:00 08/25/18 11:46 08/25/18 07:00 08/25/18 07:00 08/25/18 07:00 Intake and Output: 08/25/18 08/25/18 06:59 18:59 Output Total 175 Balance -175 - Medications Medications: Current Medications Acetaminophen (Tylenol 325mg Tab) 650 mg PO Q6 PRN PRN Reason: pain, fever Last Admin: 08/21/18 04:14 Dose: 650 mg Apixaban (Eliquis) 2.5 mg PO BID [facility] Last Admin: 08/23/18 11:08 Dose: 2.5 mg Bisacodyl (Dulcolax) 10 mg PO ONCE ONE Stop: 08/25/18 16:01 Epoetin Dariel (Procrit) 10,000 unit IV TTS [facility] Last Admin: 08/24/18 18:20 Dose: 10,000 unit Cefepime HCl (Maxipime Iv 1 Gm Premix) 1 gm in 50 mls @ 100 mls/hr IVPB Q24H [facility]; Protocol Last Admin: 08/24/18 18:52 Dose: 100 mls/hr Metoprolol Tartrate (Lopressor) 50 mg PO BID [facility] Last Admin: 08/25/18 09:28 Dose: 50 mg Temazepam (Restoril) 15 mg PO HS PRN PRN Reason: Sleep Last Admin: 08/22/18 22:09 Dose: 15 mg - Labs Labs: 08/24/18 06:44 08/24/18 06:44 PT 14.3 SECONDS (9.7-12.2) H 08/24/18 06:44 INR 1.3 08/24/18 06:44 APTT 33 SECONDS (21-34) 08/24/18 06:44 - Constitutional Appears: Well, Non-toxic - Head Exam Head Exam: ATRAUMATIC, NORMAL INSPECTION - Eye Exam Eye Exam: EOMI, Normal appearance, PERRL Pupil Exam: NORMAL ACCOMODATION - ENT Exam ENT Exam: Mucous Membranes Moist - Neck Exam Neck Exam: Full ROM - Cardiovascular Exam Cardiovascular Exam: Irregular Rhythm, +S1, +S2 - GI/Abdominal Exam GI & Abdominal Exam: Soft, Normal Bowel Sounds - Rectal Exam Rectal Exam: Deferred - Extremities Exam Additional comments: no edema - Neurological Exam Neurological Exam: Alert, Awake, CN II-XII Intact Additional comments: oriented x2 - Psychiatric Exam Psychiatric exam: Normal Affect, Normal Mood - Skin Skin Exam: Normal Color Assessment and Plan - Assessment and Plan (Free Text) Assessment: 73 to AA male with pmh/o htn, prostate cA, ckd-3, ? UTI with diarrhea x 2 weeks, weakness, shaking, decreased uop, difficulty to ambulate vert high bun/cr, confusion, low bicarb, high wbc now blood c/s + ve for GNR urine analysis c/w uti, ct scan c/w moderate- severe microvascular changes, chronic left frontoparietal lacunar infarcts 1. GRAYSON on ckd-3 2. Gram negative sepsis, sec to E.coli, 3. high anion gap met. acidosis 4. R/o uremic encephalopathy 5. Expressive aphasia 6. Paroxysmal A fib 7. Anemia 8. confusion ? sec to cva/TIA c/w iv abx, as per ID c/w epogen during hd PT/OT evaluation/ LANI placement for hd in am for EGD/colonoscopy in am f/u with neurology, cardiology
[2018-08-25] MEDS ORDERED: Bisacodyl 5mg EC Tab PO ONE (16:00)
--- NOTE | 2018-08-25 16:27 | CP.PCM.PN ---
Subjective - Date & Time of Evaluation Date of Evaluation: 08/25/18 Time of Evaluation: 13:00 - Subjective Subjective: Vascular Surgery: Dr. Frankel Pt seen and examined. No acute events overnight. States he feels ok and denies any complaints at this time. Tolerating HD via permacath. No fevers recorded overnight. Objective - Vital Signs/Intake and Output Vital Signs (last 24 hours): Temp Pulse Resp BP Pulse Ox 98 F 61 20 150/70 99 08/25/18 15:00 08/25/18 15:00 08/25/18 15:00 08/25/18 15:00 08/25/18 15:00 Intake and Output: 08/25/18 08/25/18 06:59 18:59 Output Total 175 Balance -175 - Medications Medications: Current Medications Acetaminophen (Tylenol 325mg Tab) 650 mg PO Q6 PRN PRN Reason: pain, fever Last Admin: 08/21/18 04:14 Dose: 650 mg Apixaban (Eliquis) 2.5 mg PO BID [facility] Last Admin: 08/23/18 11:08 Dose: 2.5 mg Epoetin Dariel (Procrit) 10,000 unit IV TTS [facility] Last Admin: 08/24/18 18:20 Dose: 10,000 unit Cefepime HCl (Maxipime Iv 1 Gm Premix) 1 gm in 50 mls @ 100 mls/hr IVPB Q24H [facility]; Protocol Last Admin: 08/24/18 18:52 Dose: 100 mls/hr Metoprolol Tartrate (Lopressor) 50 mg PO BID [facility] Last Admin: 08/25/18 09:28 Dose: 50 mg Temazepam (Restoril) 15 mg PO HS PRN PRN Reason: Sleep Last Admin: 08/22/18 22:09 Dose: 15 mg - Labs Labs: 08/24/18 06:44 08/24/18 06:44 PT 14.3 SECONDS (9.7-12.2) H 08/24/18 06:44 INR 1.3 08/24/18 06:44 APTT 33 SECONDS (21-34) 08/24/18 06:44 - Constitutional Appears: Well, No Acute Distress - Head Exam Head Exam: ATRAUMATIC, NORMOCEPHALIC - ENT Exam ENT Exam: Mucous Membranes Moist - Respiratory Exam Respiratory Exam: NORMAL BREATHING PATTERN - Cardiovascular Exam Cardiovascular Exam: RRR - GI/Abdominal Exam GI & Abdominal Exam: Soft - Neurological Exam Neurological Exam: Alert, Awake, Oriented x3 - Skin Skin Exam: Dry, Warm Assessment and Plan - Assessment and Plan (Free Text) Assessment: 73M with ESRD on HD Plan: - pt going for colonoscopy tomorrow with GI for drop in H/H - plan for AVF on thursday if H/H stable - d/w Dr. Marlys Mauro
[2018-08-25] MEDS: Cefepime IV 1 gm in Dextrose 1 GM/50 ML BAG IVPB SCH (17:08)
--- NOTE | 2018-08-25 18:57 | PN ---
DATE: 08/25/2018 SUBJECTIVE: The patient denies chest pain. He is experiencing diarrhea because of taking as per the patient for colonoscopy. PHYSICAL EXAMINATION VITAL SIGNS: Blood pressure 144/81, heart rate 67, temperature 98.1, respirations 18. HEENT: Pale conjunctivae. CHEST: Clear. HEART: S1, S2 regular. EXTREMITIES: No edema. LABORATORY DATA: Today's BUN and creatinine are 51 and 7.6 respectively. Stool occult blood is negative. ASSESSMENT: 1. Paroxysmal atrial fibrillation. 2. Anemia, rule out lower gastrointestinal bleeding. 3. Hypertension. RECOMMENDATIONS: Continue current Lopressor 50 mg twice a day, Procrit 10,000 units . Eliquis is on hold in anticipation of fistula placement this coming Thursday, and the patient is also scheduled for endoscopy. Dav Hernandez MD
--- NOTE | 2018-08-25 22:06 | CP.PCM.PN ---
Subjective - Date & Time of Evaluation Date of Evaluation: 08/25/18 Time of Evaluation: 09:30 - Subjective Subjective: clinically same Objective - Vital Signs/Intake and Output Vital Signs (last 24 hours): Temp Pulse Resp BP Pulse Ox 98 F 62 20 158/74 H 99 08/25/18 15:00 08/25/18 17:30 08/25/18 15:00 08/25/18 17:30 08/25/18 15:00 - Medications Medications: Current Medications Acetaminophen (Tylenol 325mg Tab) 650 mg PO Q6 PRN PRN Reason: pain, fever Last Admin: 08/21/18 04:14 Dose: 650 mg Apixaban (Eliquis) 2.5 mg PO BID [facility] Last Admin: 08/23/18 11:08 Dose: 2.5 mg Epoetin Dariel (Procrit) 10,000 unit IV TTS [facility] Last Admin: 08/24/18 18:20 Dose: 10,000 unit Cefepime HCl (Maxipime Iv 1 Gm Premix) 1 gm in 50 mls @ 100 mls/hr IVPB Q24H [facility]; Protocol Last Admin: 08/25/18 17:08 Dose: 100 mls/hr Metoprolol Tartrate (Lopressor) 50 mg PO BID [facility] Last Admin: 08/25/18 17:06 Dose: 50 mg Temazepam (Restoril) 15 mg PO HS PRN PRN Reason: Sleep Last Admin: 08/22/18 22:09 Dose: 15 mg - Labs Labs: 08/24/18 06:44 08/24/18 06:44 PT 14.3 SECONDS (9.7-12.2) H 08/24/18 06:44 INR 1.3 08/24/18 06:44 APTT 33 SECONDS (21-34) 08/24/18 06:44 - Constitutional Appears: Well - Head Exam Head Exam: ATRAUMATIC, NORMAL INSPECTION, NORMOCEPHALIC - Eye Exam Eye Exam: EOMI, Normal appearance, PERRL Pupil Exam: NORMAL ACCOMODATION, PERRL - ENT Exam ENT Exam: Mucous Membranes Moist, Normal Exam - Neck Exam Neck Exam: Full ROM, Normal Inspection. absent: Lymphadenopathy - Respiratory Exam Respiratory Exam: Decreased Breath Sounds - Cardiovascular Exam Cardiovascular Exam: REGULAR RHYTHM, +S1, +S2 - GI/Abdominal Exam GI & Abdominal Exam: Soft, Diminished Bowel Sounds - Rectal Exam Rectal Exam: Deferred
--- NOTE | 2018-08-26 09:36 | CP.PCM.PN ---
Subjective - Date & Time of Evaluation Date of Evaluation: 08/26/18 Time of Evaluation: 09:36 - Subjective Subjective: pt is seen and examined by me during hemodialysis, uf goal is about 1.2 lit no complaints, no sob, no cp Objective - Vital Signs/Intake and Output Vital Signs (last 24 hours): Temp Pulse Resp BP Pulse Ox 97.9 F 65 20 163/93 H 97 08/26/18 09:05 08/26/18 09:05 08/26/18 09:05 08/26/18 09:20 08/26/18 09:05 Intake and Output: 08/26/18 08/26/18 06:59 18:59 Intake Total 350 Output Total 100 Balance 250 - Medications Medications: Current Medications Acetaminophen (Tylenol 325mg Tab) 650 mg PO Q6 PRN PRN Reason: pain, fever Last Admin: 08/21/18 04:14 Dose: 650 mg Apixaban (Eliquis) 2.5 mg PO BID [facility] Last Admin: 08/23/18 11:08 Dose: 2.5 mg Epoetin Dariel (Procrit) 10,000 unit IV TTS [facility] Last Admin: 08/24/18 18:20 Dose: 10,000 unit Cefepime HCl (Maxipime Iv 1 Gm Premix) 1 gm in 50 mls @ 100 mls/hr IVPB Q24H [facility]; Protocol Last Admin: 08/25/18 17:08 Dose: 100 mls/hr Metoprolol Tartrate (Lopressor) 50 mg PO BID [facility] Last Admin: 08/25/18 17:06 Dose: 50 mg Temazepam (Restoril) 15 mg PO HS PRN PRN Reason: Sleep Last Admin: 08/22/18 22:09 Dose: 15 mg - Labs Labs: 08/24/18 06:44 08/24/18 06:44 PT 14.3 SECONDS (9.7-12.2) H 08/24/18 06:44 INR 1.3 08/24/18 06:44 APTT 33 SECONDS (21-34) 08/24/18 06:44 - Constitutional Appears: Well, Non-toxic, No Acute Distress - Head Exam Head Exam: ATRAUMATIC, NORMAL INSPECTION - Eye Exam Eye Exam: EOMI, Normal appearance, PERRL Pupil Exam: NORMAL ACCOMODATION - ENT Exam ENT Exam: Mucous Membranes Moist - Neck Exam Neck Exam: Full ROM - Respiratory Exam Respiratory Exam: Clear to Ausculation Bilateral, NORMAL BREATHING PATTERN - Cardiovascular Exam Cardiovascular Exam: REGULAR RHYTHM, +S1, +S2 - GI/Abdominal Exam GI & Abdominal Exam: Soft, Normal Bowel Sounds - Rectal Exam Rectal Exam: Deferred - Extremities Exam Extremities Exam: Full ROM, Normal Inspection Additional comments: no edema - Neurological Exam Neurological Exam: Alert, Awake, CN II-XII Intact Additional comments: oriented x2 - Skin Skin Exam: Normal Color, Warm Assessment and Plan - Assessment and Plan (Free Text) Assessment: 73 to AA male with pmh/o htn, prostate cA, ckd-3, ? UTI with diarrhea x 2 weeks, weakness, shaking, decreased uop, difficulty to ambulate vert high bun/cr, confusion, low bicarb, high wbc now blood c/s + ve for GNR urine analysis c/w uti, ct scan c/w moderate- severe microvascular changes, chronic left frontoparietal lacunar infarcts 1. GRAYSON on ckd-3 2. Gram negative sepsis, sec to E.coli, 3. high anion gap met. acidosis 4. R/o uremic encephalopathy 5. Expressive aphasia 6. Paroxysmal A fib 7. Anemia 8. confusion ? sec to cva/TIA c/w iv abx, as per ID c/w epogen during hd PT/OT evaluation/ LANI placement pt is being dialyzed for EGD/colonoscopy in am f/u with neurology, cardiology awaiting for av fistula placement
[2018-08-26] MEDS ORDERED: Ferric Sodium Gluconat Complex 62.5 mg/5 ml Vial IVPB ONE (10:30)
[2018-08-26] MEDS: Epoetin Alfa Dialysis 20000 UNIT/ML Inj IV SCH (10:39)
[2018-08-26 11:30] LABS: IRON 25 ug/dL (49-181)
[2018-08-26 11:39] LABS: % IRON SATURATION 14 (20-55); TOTAL IRON BINDING CAPACITY 187 ug/dL (250-450)
[2018-08-26 12:21] LABS: BASO # 0.1 K/uL (0.0-0.2); BASO % 1.6 % (0.0-2.0); EOS # 0.1 K/uL (0.0-0.7); LYMPH # 1.7 K/uL (1.0-4.3); LYMPH % 36.5 % (20.0-40.0); MEAN CELL VOLUME 65.4 fL (80.0-94.0); MEAN CORPUSCULAR HEMOGLOBIN 20.8 pg (27.0-31.0); MEAN CORPUSCULAR HGB CONC 31.8 g/dL (33.0-37.0); MEAN PLATELET VOLUME 8.7 fL (7.2-11.7); MONO # 0.5 K/uL (0.0-0.8); MONO % 10.6 % (0.0-10.0); NEUT # 2.3 K/uL (1.8-7.0); NEUT % 48.3 % (50.0-75.0); NRBC % 0.2 % (0.0-2.0); RBC 3.85 Mil/uL (4.40-5.90); RED CELL DISTRIBUTION WIDTH 19.2 % (11.5-14.5); WHITE BLOOD COUNT 4.7 K/uL (4.8-10.8)
[2018-08-26] MEDS ORDERED: Lidocaine 4% (Laryng-O-Jet) Kit MM ONE (13:05)
[2018-08-26] MEDS ORDERED: Midazolam 2 MG/2 ML VIAL ONE (13:32)
[2018-08-26] MEDS ORDERED: Lidocaine Hydrochloride 5 ML INJ ONE (13:32)
[2018-08-26] MEDS ORDERED: Etomidate 20 mg/10ml Inj IV ONE (13:33)
--- NOTE | 2018-08-26 17:00 | CP.PCM.PCO ---
Physician Communication Note - Physician Communication Note Physician Communication Note: OK with AV Fistula placement Cardiacwise if normokalemic
[2018-08-26] MEDS: Cefepime IV 1 gm in Dextrose 1 GM/50 ML BAG IVPB SCH (17:21)
[2018-08-26] MEDS: Pantoprazole 40 mg EC Tab PO SCH (17:22)
--- NOTE | 2018-08-26 17:50 | PN ---
DATE: 08/26/2018 SUBJECTIVE: The patient is currently undergoing hemodialysis. No palpitation, chest pain or shortness of breath. PHYSICAL EXAMINATION: VITAL SIGNS: Blood pressure 151/90, heart rate 67, temperature 97.7, and respirations 18. HEENT: Pale conjunctivae. CHEST: Clear. HEART: S1 and S2 regular. EXTREMITIES: No edema. LABORATORY DATA: Today's hemoglobin and hematocrit 8 and 25.2, white count 4.7, platelet count 196,000. ASSESSMENT: 1. Paroxysmal atrial fibrillation. 2. End-stage renal disease, on hemodialysis. 3. History of multiple lacunar infarcts involving basal ganglia bilaterally and the brain stem. 4. Anemia, rule out gastrointestinal bleeding. RECOMMENDATIONS: Continue Procrit 20,000 units TTS, IV Maxipime at 1 g daily. The patient is scheduled today for endoscopy. Dav Hernandez MD
--- NOTE | 2018-08-26 17:53 | CP.PCM.PN ---
Subjective - Date & Time of Evaluation Date of Evaluation: 08/26/18 Time of Evaluation: 07:00 - Subjective Subjective: VASCULAR SURGERY PROGRESS NOTE FOR DR. MOE Patient seen and examined at bedside. Continuing with dialysis via right permacath. Pt NPO for EGD/colonoscopy today. Objective - Vital Signs/Intake and Output Vital Signs (last 24 hours): Temp Pulse Resp BP Pulse Ox 98.1 F 79 20 154/79 H 96 08/26/18 15:13 08/26/18 17:26 08/26/18 15:13 08/26/18 17:26 08/26/18 15:13 Intake and Output: 08/26/18 08/26/18 06:59 18:59 Intake Total 350 200 Output Total 100 Balance 250 200 - Medications Medications: Current Medications Acetaminophen (Tylenol 325mg Tab) 650 mg PO Q6 PRN PRN Reason: pain, fever Last Admin: 08/21/18 04:14 Dose: 650 mg Apixaban (Eliquis) 2.5 mg PO BID [facility] Last Admin: 08/23/18 11:08 Dose: 2.5 mg Epoetin Dariel (Procrit) 20,000 unit IV TTS [facility] Last Admin: 08/26/18 10:39 Dose: 20,000 unit Cefepime HCl (Maxipime Iv 1 Gm Premix) 1 gm in 50 mls @ 100 mls/hr IVPB Q24H [facility]; Protocol Last Admin: 08/26/18 17:21 Dose: 100 mls/hr Metoprolol Tartrate (Lopressor) 50 mg PO BID [facility] Last Admin: 08/26/18 17:22 Dose: 50 mg Pantoprazole Sodium (Protonix Ec Tab) 40 mg PO DAILY [facility] Last Admin: 08/26/18 17:22 Dose: 40 mg Sucralfate (Carafate Tab) 1 gm PO BID [facility] Last Admin: 08/26/18 17:21 Dose: 1 gm Temazepam (Restoril) 15 mg PO HS PRN PRN Reason: Sleep Last Admin: 08/22/18 22:09 Dose: 15 mg - Labs Labs: 08/26/18 12:10 08/24/18 06:44 PT 14.3 SECONDS (9.7-12.2) H 08/24/18 06:44 INR 1.3 08/24/18 06:44 APTT 33 SECONDS (21-34) 08/24/18 06:44 - Constitutional Appears: Non-toxic, No Acute Distress - Neck Exam Additional comments: Right IJ Permacath - Respiratory Exam Respiratory Exam: NORMAL BREATHING PATTERN. absent: Respiratory Distress - Cardiovascular Exam Cardiovascular Exam: +S1, +S2 Assessment and Plan - Assessment and Plan (Free Text) Assessment: 73 YO M with PMHx of ESRD on dialysis (T/T/S), prostate cancer, HTN, and multiple TIA, who was found to have GRAYSON, UTI, bacteremia, paroxysmal A fib, now s/p Right permacath POD#8 - Vein mapping completed - AV fistula Thursday (cleared by cardiology) - Left arm restrictions - Eliquis held since 08/23 AM - NPO past midnight - Discussed plan with Dr. Marlys Mercado PGY-4
--- NOTE | 2018-08-26 21:41 | CP.PCM.PN ---
Subjective - Date & Time of Evaluation Date of Evaluation: 08/26/18 Time of Evaluation: 09:00 - Subjective Subjective: clinically same Objective - Vital Signs/Intake and Output Vital Signs (last 24 hours): Temp Pulse Resp BP Pulse Ox 98.1 F 79 20 154/79 H 96 08/26/18 15:13 08/26/18 17:26 08/26/18 15:13 08/26/18 17:26 08/26/18 15:13 Intake and Output: 08/26/18 08/27/18 18:59 06:59 Intake Total 200 Balance 200 - Medications Medications: Current Medications Acetaminophen (Tylenol 325mg Tab) 650 mg PO Q6 PRN PRN Reason: pain, fever Last Admin: 08/21/18 04:14 Dose: 650 mg Apixaban (Eliquis) 2.5 mg PO BID [facility] Last Admin: 08/23/18 11:08 Dose: 2.5 mg Epoetin Dariel (Procrit) 20,000 unit IV TTS [facility] Last Admin: 08/26/18 10:39 Dose: 20,000 unit Cefepime HCl (Maxipime Iv 1 Gm Premix) 1 gm in 50 mls @ 100 mls/hr IVPB Q24H [facility]; Protocol Last Admin: 08/26/18 17:21 Dose: 100 mls/hr Lactated Ringer's (Lactated Ringer's) 1,000 mls @ 75 mls/hr IV .[id number] [facility] Metoprolol Tartrate (Lopressor) 50 mg PO BID [facility] Last Admin: 08/26/18 17:22 Dose: 50 mg Pantoprazole Sodium (Protonix Ec Tab) 40 mg PO DAILY [facility] Last Admin: 08/26/18 17:22 Dose: 40 mg Sucralfate (Carafate Tab) 1 gm PO BID [facility] Last Admin: 08/26/18 17:21 Dose: 1 gm Temazepam (Restoril) 15 mg PO HS PRN PRN Reason: Sleep Last Admin: 08/22/18 22:09 Dose: 15 mg - Labs Labs: 08/26/18 12:10 08/24/18 06:44 PT 14.3 SECONDS (9.7-12.2) H 08/24/18 06:44 INR 1.3 08/24/18 06:44 APTT 33 SECONDS (21-34) 08/24/18 06:44 - Constitutional Appears: Well - Head Exam Head Exam: ATRAUMATIC, NORMAL INSPECTION, NORMOCEPHALIC - Eye Exam Eye Exam: EOMI, Normal appearance, PERRL Pupil Exam: NORMAL ACCOMODATION, PERRL - ENT Exam ENT Exam: Mucous Membranes Moist, Normal Exam - Neck Exam Neck Exam: Full ROM, Normal Inspection. absent: Lymphadenopathy - Respiratory Exam Respiratory Exam: Decreased Breath Sounds - Cardiovascular Exam Cardiovascular Exam: REGULAR RHYTHM, +S1, +S2 - GI/Abdominal Exam GI & Abdominal Exam: Soft, Diminished Bowel Sounds - Rectal Exam Rectal Exam: Deferred Assessment and Plan - Assessment and Plan (Free Text) Plan: For AV surgery tomorrow This is on hold since [address] Serrano who stated as long it is 3 years old patient's can be clear and Patient is also seen by Dr. contreras who cleared the patient for the surgery will also will clear the patient for the surgery continue to hold anticoagulations which is on hold Continue same
[2018-08-27] MEDS: Lactated Ringer's 1,000 ML IV SCH ×2 (00:19→14:32)
[2018-08-27 07:17] LABS: BASO # 0.1 K/uL (0.0-0.2); BASO % 1.7 % (0.0-2.0); EOS # 0.2 K/uL (0.0-0.7); EOS % 2.7 % (0.0-4.0); HEMOGLOBIN 7.7 g/dL (12.0-18.0); LYMPH # 2.1 K/uL (1.0-4.3); LYMPH % 35.5 % (20.0-40.0); MEAN CORPUSCULAR HEMOGLOBIN 20.5 pg (27.0-31.0); MEAN CORPUSCULAR HGB CONC 31.1 g/dL (33.0-37.0); MONO % 16.6 % (0.0-10.0); NEUT # 2.5 K/uL (1.8-7.0); NEUT % 43.5 % (50.0-75.0); NRBC % 0.2 % (0.0-2.0); RBC 3.74 Mil/uL (4.40-5.90); WHITE BLOOD COUNT 5.8 K/uL (4.8-10.8)
[2018-08-27 07:47] LABS: CALCIUM 7.1 mg/dl (8.6-10.4)
[2018-08-27] MEDS ORDERED: HEPARIN-NS 5,000 UNITS/500 ML 5,000 UNIT/500 ML BAG IV ONE (09:36)
[2018-08-27] MEDS ORDERED: ceFAZolin IV 1 gm in Dextrose 1 GM/50 ML BAG IVPB ONE (09:36)
--- NOTE | 2018-08-27 10:13 | CP.PCM.PN ---
<Javi Lares - Last Filed: 08/27/18 12:13> Subjective - Date & Time of Evaluation Date of Evaluation: 08/27/18 Time of Evaluation: 10:12 - Subjective Subjective: Patient is doing well this AM. Tolerated diet last night. Now NPO for AV fistula. Objective - Vital Signs/Intake and Output Vital Signs (last 24 hours): Temp Pulse Resp BP Pulse Ox 99.3 F 74 18 122/67 100 08/27/18 07:00 08/27/18 07:00 08/27/18 07:00 08/27/18 07:00 08/27/18 07:00 Intake and Output: 08/27/18 08/27/18 06:59 18:59 Intake Total 970 Output Total 400 Balance 570 - Medications Medications: Current Medications Acetaminophen (Tylenol 325mg Tab) 650 mg PO Q6 PRN PRN Reason: pain, fever Last Admin: 08/21/18 04:14 Dose: 650 mg Apixaban (Eliquis) 2.5 mg PO BID [facility] Last Admin: 08/23/18 11:08 Dose: 2.5 mg Epoetin Dariel (Procrit) 20,000 unit IV TTS [facility] Last Admin: 08/26/18 10:39 Dose: 20,000 unit Cefepime HCl (Maxipime Iv 1 Gm Premix) 1 gm in 50 mls @ 100 mls/hr IVPB Q24H [facility]; Protocol Last Admin: 08/26/18 17:21 Dose: 100 mls/hr Lactated Ringer's (Lactated Ringer's) 1,000 mls @ 75 mls/hr IV .[id number] [facility] Last Admin: 08/27/18 00:19 Dose: 75 mls/hr Metoprolol Tartrate (Lopressor) 50 mg PO BID [facility] Last Admin: 08/27/18 09:20 Dose: 50 mg Pantoprazole Sodium (Protonix Ec Tab) 40 mg PO DAILY [facility] Last Admin: 08/26/18 17:22 Dose: 40 mg Sucralfate (Carafate Tab) 1 gm PO BID [facility] Last Admin: 08/27/18 09:20 Dose: 1 gm Temazepam (Restoril) 15 mg PO HS PRN PRN Reason: Sleep Last Admin: 08/22/18 22:09 Dose: 15 mg - Labs Labs: 08/27/18 07:09 08/27/18 07:09 PT 14.3 SECONDS (9.7-12.2) H 08/24/18 06:44 INR 1.3 08/24/18 06:44 APTT 33 SECONDS (21-34) 08/24/18 06:44 - Constitutional Appears: Non-toxic, No Acute Distress - Head Exam Head Exam: ATRAUMATIC, NORMAL INSPECTION - Eye Exam Eye Exam: EOMI, Normal appearance - ENT Exam ENT Exam: Mucous Membranes Moist, Normal Exam - Respiratory Exam Respiratory Exam: Clear to Ausculation Bilateral, NORMAL BREATHING PATTERN - Cardiovascular Exam Cardiovascular Exam: REGULAR RHYTHM, +S1, +S2 - GI/Abdominal Exam GI & Abdominal Exam: Soft, Normal Bowel Sounds. absent: Tenderness - Extremities Exam Extremities Exam: Full ROM, Normal Inspection - Neurological Exam Neurological Exam: Alert, Awake, Oriented x3 - Psychiatric Exam Psychiatric exam: Normal Affect, Normal Mood - Skin Skin Exam: Dry, Normal Color Assessment and Plan - Assessment and Plan (Free Text) Assessment: #Anemia #Afib on Eiquis #ESRD on HD, EPO #Prostate cancer #CVA PLAN: -s/p EGD and colonoscopy - Duodenal ulcers -Continue PPI PO daily -Continue sucralfate PO BID -Monitor Hb daily and signs of blood loss -Diet per surgical team -Ideally patient would have Eliquis held for 5-7 days while ulcers heal. However, if cardiology feels patient is at a sufficiently high risk, patient is on PPI therapy and Eliquis could be started now. -Must avoid NSAIDs. <Beau Nicholas Y - Last Filed: 08/27/18 12:20> Objective - Vital Signs/Intake and Output Vital Signs (last 24 hours): Temp Pulse Resp BP Pulse Ox 99.3 F 74 18 122/67 100 08/27/18 07:00 08/27/18 07:00 08/27/18 07:00 08/27/18 07:00 08/27/18 07:00 Intake and Output: 08/27/18 08/27/18 06:59 18:59 Intake Total 970 Output Total 400 Balance 570 - Medications Medications: Current Medications Acetaminophen (Tylenol 325mg Tab) 650 mg PO Q6 PRN PRN Reason: pain, fever Last Admin: 08/21/18 04:14 Dose: 650 mg Apixaban (Eliquis) 2.5 mg PO BID [facility] Last Admin: 08/23/18 11:08 Dose: 2.5 mg Epoetin Dariel (Procrit) 20,000 unit IV TTS [facility] Last Admin: 08/26/18 10:39 Dose: 20,000 unit Cefepime HCl (Maxipime Iv 1 Gm Premix) 1 gm in 50 mls @ 100 mls/hr IVPB Q24H [facility]; Protocol Last Admin: 08/26/18 17:21 Dose: 100 mls/hr Lactated Ringer's (Lactated Ringer's) 1,000 mls @ 75 mls/hr IV .[id number] [facility] Last Admin: 08/27/18 00:19 Dose: 75 mls/hr Metoprolol Tartrate (Lopressor) 50 mg PO BID [facility] Last Admin: 08/27/18 09:20 Dose: 50 mg Pantoprazole Sodium (Protonix Ec Tab) 40 mg PO DAILY [facility] Last Admin: 08/27/18 11:58 Dose: Not Given Sucralfate (Carafate Tab) 1 gm PO BID [facility] Last Admin: 08/27/18 09:20 Dose: 1 gm Temazepam (Restoril) 15 mg PO HS PRN PRN Reason: Sleep Last Admin: 08/22/18 22:09 Dose: 15 mg - Labs Labs: 08/27/18 07:09 08/27/18 07:09 PT 14.3 SECONDS (9.7-12.2) H 08/24/18 06:44 INR 1.3 08/24/18 06:44 APTT 33 SECONDS (21-34) 08/24/18 06:44 Attending/Attestation - Attestation I have personally seen and examined this patient.: Yes I have fully participated in the care of the patient.: Yes I have reviewed all pertinent clinical information, including history, physical exam and plan: Yes Notes (Text): 08/27/18 12:18 I have seen and examined patient with GI fellow. No acute events overnight, resting in bed comfortably. He denies abdominal pain, nausea, vomiting, fever/chills. He is NPO for scheduled AV fistula placement today. Atrial fibrillation on Eliquis ESRD on HD History of prostate cancer Chronic anemia, s/p EGD and colonoscopy yesterday showing 2 duodenal ulcers - Diet as tolerated - H/H stable, continue to monitor and transfuse as necessary - Continue with PPI and carafate regimen - Follow up EGD biopsy results - Ideally would favor holding Eliquis for additional 5 days to allow for ulcer healing, however if cardiology feels medication is urgent than can be restarted along with concomitant PPI therapy - No further planned GI interventions at this time, will sign off case. Please reconsult as necessary, thank you.
[2018-08-27] MEDS ORDERED: Propofol 10 mg/ml Inj (20 ML) ONE (11:10)
[2018-08-27] MEDS: Pantoprazole 40 mg EC Tab PO SCH (11:58)
--- NOTE | 2018-08-27 12:10 | CP.PCM.PN ---
Subjective - Date & Time of Evaluation Date of Evaluation: 08/27/18 Time of Evaluation: 12:10 - Subjective Subjective: no complaints, no sob, for or today for av fistula placement Objective - Vital Signs/Intake and Output Vital Signs (last 24 hours): Temp Pulse Resp BP Pulse Ox 99.3 F 74 18 122/67 100 08/27/18 07:00 08/27/18 07:00 08/27/18 07:00 08/27/18 07:00 08/27/18 07:00 Intake and Output: 08/27/18 08/27/18 06:59 18:59 Intake Total 970 Output Total 400 Balance 570 - Medications Medications: Current Medications Acetaminophen (Tylenol 325mg Tab) 650 mg PO Q6 PRN PRN Reason: pain, fever Last Admin: 08/21/18 04:14 Dose: 650 mg Apixaban (Eliquis) 2.5 mg PO BID [facility] Last Admin: 08/23/18 11:08 Dose: 2.5 mg Epoetin Dariel (Procrit) 20,000 unit IV TTS [facility] Last Admin: 08/26/18 10:39 Dose: 20,000 unit Cefepime HCl (Maxipime Iv 1 Gm Premix) 1 gm in 50 mls @ 100 mls/hr IVPB Q24H [facility]; Protocol Last Admin: 08/26/18 17:21 Dose: 100 mls/hr Lactated Ringer's (Lactated Ringer's) 1,000 mls @ 75 mls/hr IV .[id number] [facility] Last Admin: 08/27/18 00:19 Dose: 75 mls/hr Metoprolol Tartrate (Lopressor) 50 mg PO BID [facility] Last Admin: 08/27/18 09:20 Dose: 50 mg Pantoprazole Sodium (Protonix Ec Tab) 40 mg PO DAILY [facility] Last Admin: 08/27/18 11:58 Dose: Not Given Sucralfate (Carafate Tab) 1 gm PO BID [facility] Last Admin: 08/27/18 09:20 Dose: 1 gm Temazepam (Restoril) 15 mg PO HS PRN PRN Reason: Sleep Last Admin: 08/22/18 22:09 Dose: 15 mg - Labs Labs: 08/27/18 07:09 08/27/18 07:09 PT 14.3 SECONDS (9.7-12.2) H 08/24/18 06:44 INR 1.3 08/24/18 06:44 APTT 33 SECONDS (21-34) 08/24/18 06:44 - Constitutional Appears: Well, Non-toxic, No Acute Distress - Head Exam Head Exam: ATRAUMATIC, NORMAL INSPECTION - Eye Exam Eye Exam: EOMI, Normal appearance, PERRL Pupil Exam: NORMAL ACCOMODATION - ENT Exam ENT Exam: Mucous Membranes Moist - Neck Exam Neck Exam: Full ROM - Respiratory Exam Respiratory Exam: Clear to Ausculation Bilateral, NORMAL BREATHING PATTERN - Cardiovascular Exam Cardiovascular Exam: REGULAR RHYTHM, +S1, +S2 - GI/Abdominal Exam GI & Abdominal Exam: Soft, Normal Bowel Sounds - Rectal Exam Rectal Exam: Deferred - Extremities Exam Extremities Exam: Normal Inspection - Neurological Exam Neurological Exam: Alert, Awake, CN II-XII Intact Additional comments: oriented x 2-3 - Skin Skin Exam: Normal Color Assessment and Plan - Assessment and Plan (Free Text) Assessment: 73 to AA male with pmh/o htn, prostate cA, ckd-3, ? UTI with diarrhea x 2 weeks, weakness, shaking, decreased uop, difficulty to ambulate vert high bun/cr, confusion, low bicarb, high wbc now blood c/s + ve for GNR urine analysis c/w uti, ct scan c/w moderate- severe microvascular changes, chronic left frontoparietal lacunar infarcts 1. GRAYSON on ckd-3 2. Gram negative sepsis, sec to E.coli, 3. high anion gap met. acidosis 4. R/o uremic encephalopathy 5. Expressive aphasia 6. Paroxysmal A fib 7. Anemia 8. confusion ? sec to cva/TIA c/w iv abx, as per ID c/w epogen during hd PT/OT evaluation/ LANI placement f/u with neurology, cardiology for av fistula placement today for HD in am
[2018-08-27] MEDS ORDERED: ePHEDrine 50 mg/ml Inj ONE (12:18)
[2018-08-27] MEDS ORDERED: Phenylephrine 10 mg/ml Inj ONE (12:35)
[2018-08-27] MEDS ORDERED: Papaverine Hydrochloride 30 mg/ml (2ml) ONE (12:51)
[2018-08-27] MEDS ORDERED: Sodium Chloride 0.9% 1,000 ML IV SCH (13:00)
--- NOTE | 2018-08-27 13:49 | PCM.SURG1 ---
Surgeon's Initial Post Op Note - Surgeon's Notes Surgeon: Dr. Frankel Director Of [facility]: Dr. Mauro Pre-Operative Diagnosis: End Stage Renal Disease Operative Findings: See operative report Post-Operative Diagnosis: Same Operation Performed: Left Arm Snuffbox AVF Specimen/Specimens Removed: none Estimated Blood Loss: EBL {In ML}: 10 Blood Products Given: N/A Drains Used: No Drains Post-Op Condition: Good Date of Surgery/Procedure: 08/27/18 Time of Surgery/Procedure: 13:49
--- NOTE | 2018-08-27 16:23 | PN ---
DATE: 08/27/2018 SUBJECTIVE: The patient is comfortable. He denies any chest pain or shortness of breath. PHYSICAL EXAMINATION: VITAL SIGNS: Blood pressure 122/67, heart rate 75, temperature 99.3, and respirations 18. HEENT: Pale conjunctivae. CHEST: Clear. HEART: S1 and S2 regular. EXTREMITIES: No edema. LABORATORY DATA: Today's hemoglobin and hematocrit 7.7 and 24.7. White count and platelet count are within normal limit. Today's SMA-7 is within normal limit except for a creatinine of 4.9. Calcium is 7.1. ASSESSMENT: 1. Paroxysmal atrial fibrillation. 2. End-stage renal disease, on hemodialysis. 3. Hypocalcemia. 4. Significant anemia. 5. Escherichia coli bacteremia. RECOMMENDATIONS: Continue Carafate 1 g twice a day, Maxipime at 1 g intravenously daily, and Procrit 20,000 units intravenously TTS. Eliquis put on hold and the patient will undergo AV fistula placement today with postoperative telemetry monitoring. Dav Hernandez MD
[2018-08-27] MEDS: Cefepime IV 1 gm in Dextrose 1 GM/50 ML BAG IVPB SCH (17:39)
--- NOTE | 2018-08-27 20:16 | CP.PCM.PN ---
Subjective - Date & Time of Evaluation Date of Evaluation: 08/27/18 Time of Evaluation: 09:15 - Subjective Subjective: clinically same Objective - Vital Signs/Intake and Output Vital Signs (last 24 hours): Temp Pulse Resp BP Pulse Ox 97.7 F 75 20 158/80 H 100 08/27/18 15:00 08/27/18 16:00 08/27/18 15:00 08/27/18 15:00 08/27/18 15:00 Intake and Output: 08/27/18 08/28/18 18:59 06:59 Intake Total 500 Balance 500 - Medications Medications: Current Medications Acetaminophen (Tylenol 325mg Tab) 650 mg PO Q6 PRN PRN Reason: pain, fever Last Admin: 08/21/18 04:14 Dose: 650 mg Apixaban (Eliquis) 2.5 mg PO BID [facility] Last Admin: 08/23/18 11:08 Dose: 2.5 mg Epoetin Dariel (Procrit) 20,000 unit IV TTS [facility] Last Admin: 08/26/18 10:39 Dose: 20,000 unit Cefepime HCl (Maxipime Iv 1 Gm Premix) 1 gm in 50 mls @ 100 mls/hr IVPB Q24H [facility]; Protocol Last Admin: 08/27/18 17:39 Dose: 100 mls/hr Lactated Ringer's (Lactated Ringer's) 1,000 mls @ 75 mls/hr IV .[id number] [facility] Last Admin: 08/27/18 14:32 Dose: Not Given Sodium Chloride (Sodium Chloride 0.9%) 1,000 mls @ 10 mls/hr IV .Q24H [facility] Metoprolol Tartrate (Lopressor) 50 mg PO BID [facility] Last Admin: 08/27/18 17:40 Dose: 50 mg Pantoprazole Sodium (Protonix Ec Tab) 40 mg PO DAILY [facility] Last Admin: 08/27/18 11:58 Dose: Not Given Sucralfate (Carafate Tab) 1 gm PO BID [facility] Last Admin: 08/27/18 17:40 Dose: 1 gm Temazepam (Restoril) 15 mg PO HS PRN PRN Reason: Sleep Last Admin: 08/22/18 22:09 Dose: 15 mg - Labs Labs: 08/27/18 07:09 08/27/18 07:09 PT 14.3 SECONDS (9.7-12.2) H 08/24/18 06:44 INR 1.3 08/24/18 06:44 APTT 33 SECONDS (21-34) 08/24/18 06:44 - Constitutional Appears: Well - Head Exam Head Exam: ATRAUMATIC, NORMAL INSPECTION, NORMOCEPHALIC - Eye Exam Eye Exam: EOMI, Normal appearance, PERRL Pupil Exam: NORMAL ACCOMODATION, PERRL - ENT Exam ENT Exam: Mucous Membranes Moist, Normal Exam - Neck Exam Neck Exam: Full ROM, Normal Inspection. absent: Lymphadenopathy - Respiratory Exam Respiratory Exam: Decreased Breath Sounds - Cardiovascular Exam Cardiovascular Exam: REGULAR RHYTHM, +S1, +S2 - GI/Abdominal Exam GI & Abdominal Exam: Soft, Diminished Bowel Sounds - Rectal Exam Rectal Exam: Deferred
[2018-08-28] MEDS: Lactated Ringer's 1,000 ML IV SCH ×2 (06:16→16:04)
--- NOTE | 2018-08-28 06:59 | CP.PCM.PN ---
Subjective - Date & Time of Evaluation Date of Evaluation: 08/28/18 Time of Evaluation: 06:47 - Subjective Subjective: Vascular Surgery: Dr. Frankel Pt seen and examined. No acute overnight events. Pt is s/p Left arm AVF; POD#1. States he feels ok and admits to some post-op pain in his left hand around incision site. Denies fevers/chills. Objective - Vital Signs/Intake and Output Vital Signs (last 24 hours): Temp Pulse Resp BP Pulse Ox 98.4 F 75 20 142/78 95 08/27/18 23:35 08/28/18 00:00 08/27/18 23:35 08/27/18 23:35 08/27/18 23:35 Intake and Output: 08/27/18 08/28/18 18:59 06:59 Intake Total 500 Balance 500 - Medications Medications: Current Medications Acetaminophen (Tylenol 325mg Tab) 650 mg PO Q6 PRN PRN Reason: pain, fever Last Admin: 08/21/18 04:14 Dose: 650 mg Apixaban (Eliquis) 2.5 mg PO BID [facility] Last Admin: 08/23/18 11:08 Dose: 2.5 mg Epoetin Dariel (Procrit) 20,000 unit IV TTS [facility] Last Admin: 08/26/18 10:39 Dose: 20,000 unit Cefepime HCl (Maxipime Iv 1 Gm Premix) 1 gm in 50 mls @ 100 mls/hr IVPB Q24H [facility]; Protocol Last Admin: 08/27/18 17:39 Dose: 100 mls/hr Lactated Ringer's (Lactated Ringer's) 1,000 mls @ 75 mls/hr IV .[id number] [facility] Last Admin: 08/28/18 06:16 Dose: 75 mls/hr Sodium Chloride (Sodium Chloride 0.9%) 1,000 mls @ 10 mls/hr IV .Q24H [facility] Metoprolol Tartrate (Lopressor) 50 mg PO BID [facility] Last Admin: 08/27/18 17:40 Dose: 50 mg Pantoprazole Sodium (Protonix Ec Tab) 40 mg PO DAILY [facility] Last Admin: 08/27/18 11:58 Dose: Not Given Sucralfate (Carafate Tab) 1 gm PO BID [facility] Last Admin: 08/27/18 17:40 Dose: 1 gm Temazepam (Restoril) 15 mg PO HS PRN PRN Reason: Sleep Last Admin: 08/22/18 22:09 Dose: 15 mg - Labs Labs: 08/27/18 07:09 08/27/18 07:09 PT 14.3 SECONDS (9.7-12.2) H 08/24/18 06:44 INR 1.3 08/24/18 06:44 APTT 33 SECONDS (21-34) 08/24/18 06:44 - Constitutional Appears: Well, No Acute Distress - Head Exam Head Exam: ATRAUMATIC, NORMOCEPHALIC - ENT Exam ENT Exam: Mucous Membranes Moist - Respiratory Exam Respiratory Exam: NORMAL BREATHING PATTERN - Cardiovascular Exam Cardiovascular Exam: RRR - GI/Abdominal Exam GI & Abdominal Exam: Soft - Extremities Exam Additional comments: left hand snuffbox fistula with dressing; clean/dry - Neurological Exam Neurological Exam: Alert, Awake - Skin Skin Exam: Dry, Warm Assessment and Plan - Assessment and Plan (Free Text) Assessment: 73M s/p L arm AVF; POD#1 Plan: - cont permacath use for HD until AVF maturation - ok to DC from surgical standpoint when other medical issues resolved - f/u with Dr. Frankel in 1 week for suture removal - d/w Dr. Marlys Mauro
[2018-08-28 10:16] LABS: HEMOGLOBIN 7.2 g/dL (12.0-18.0); MEAN CELL VOLUME 66.3 fL (80.0-94.0); MEAN CORPUSCULAR HEMOGLOBIN 20.9 pg (27.0-31.0); MEAN CORPUSCULAR HGB CONC 31.5 g/dL (33.0-37.0); MEAN PLATELET VOLUME 9.3 fL (7.2-11.7); RBC 3.43 Mil/uL (4.40-5.90); RED CELL DISTRIBUTION WIDTH 18.8 % (11.5-14.5); WHITE BLOOD COUNT 3.8 K/uL (4.8-10.8)
[2018-08-28 10:44] LABS: CALCIUM 6.9 mg/dl (8.6-10.4)
[2018-08-28] MEDS: Epoetin Alfa Dialysis 20000 UNIT/ML Inj IV SCH (12:19)
--- NOTE | 2018-08-28 14:16 | CP.PCM.PN ---
Subjective - Date & Time of Evaluation Date of Evaluation: 08/28/18 Time of Evaluation: 14:16 - Subjective Subjective: pt is seen and examined by me, s/p hemodialysis, had a uf about 1 lit, no sob, no pain s/p left fore arm av fistula placement Objective - Vital Signs/Intake and Output Vital Signs (last 24 hours): Temp Pulse Resp BP Pulse Ox 98.5 F 78 18 156/84 H 100 08/28/18 09:45 08/28/18 12:15 08/28/18 12:15 08/28/18 12:15 08/28/18 12:15 - Medications Medications: Current Medications Acetaminophen (Tylenol 325mg Tab) 650 mg PO Q6 PRN PRN Reason: pain, fever Last Admin: 08/21/18 04:14 Dose: 650 mg Apixaban (Eliquis) 2.5 mg PO BID [facility] Last Admin: 08/23/18 11:08 Dose: 2.5 mg Epoetin Dariel (Procrit) 20,000 unit IV TTS [facility] Last Admin: 08/28/18 12:19 Dose: 20,000 unit Cefepime HCl (Maxipime Iv 1 Gm Premix) 1 gm in 50 mls @ 100 mls/hr IVPB Q24H [facility]; Protocol Last Admin: 08/27/18 17:39 Dose: 100 mls/hr Lactated Ringer's (Lactated Ringer's) 1,000 mls @ 75 mls/hr IV .[id number] [facility] Last Admin: 08/28/18 06:16 Dose: 75 mls/hr Sodium Chloride (Sodium Chloride 0.9%) 1,000 mls @ 10 mls/hr IV .Q24H [facility] Metoprolol Tartrate (Lopressor) 50 mg PO BID [facility] Last Admin: 08/27/18 17:40 Dose: 50 mg Pantoprazole Sodium (Protonix Ec Tab) 40 mg PO DAILY [facility] Last Admin: 08/27/18 11:58 Dose: Not Given Paricalcitol (Zemplar) 2 mcg IV TTS [facility] Sucralfate (Carafate Tab) 1 gm PO BID [facility] Last Admin: 08/27/18 17:40 Dose: 1 gm Temazepam (Restoril) 15 mg PO HS PRN PRN Reason: Sleep Last Admin: 08/22/18 22:09 Dose: 15 mg - Labs Labs: 08/28/18 10:13 08/28/18 10:13 PT 14.3 SECONDS (9.7-12.2) H 08/24/18 06:44 INR 1.3 08/24/18 06:44 APTT 33 SECONDS (21-34) 08/24/18 06:44 - Constitutional Appears: Well, Non-toxic, No Acute Distress - Head Exam Head Exam: ATRAUMATIC, NORMAL INSPECTION - Eye Exam Eye Exam: EOMI, Normal appearance, PERRL Pupil Exam: NORMAL ACCOMODATION - ENT Exam ENT Exam: Mucous Membranes Moist - Neck Exam Neck Exam: Full ROM - Cardiovascular Exam Cardiovascular Exam: REGULAR RHYTHM, +S1, +S2 - GI/Abdominal Exam GI & Abdominal Exam: Soft, Normal Bowel Sounds - Rectal Exam Rectal Exam: Deferred - Extremities Exam Extremities Exam: Normal Inspection Additional comments: no edema of legs - Neurological Exam Neurological Exam: Alert, Awake, CN II-XII Intact, Oriented x3 - Psychiatric Exam Psychiatric exam: Normal Affect, Normal Mood - Skin Skin Exam: Intact, Normal Color, Warm Assessment and Plan - Assessment and Plan (Free Text) Assessment: 73 to AA male with pmh/o htn, prostate cA, ckd-3, ? UTI with diarrhea x 2 weeks, weakness, shaking, decreased uop, difficulty to ambulate vert high bun/cr, confusion, low bicarb, high wbc now blood c/s + ve for GNR urine analysis c/w uti, ct scan c/w moderate- severe microvascular changes, chronic left frontoparietal lacunar infarcts 1. GRAYSON on ckd-3 2. Gram negative sepsis, sec to E.coli, 3. high anion gap met. acidosis 4. R/o uremic encephalopathy 5. Expressive aphasia 6. Paroxysmal A fib 7. Anemia 8. confusion ? sec to cva / TIA c/w iv abx, as per ID c/w epogen during hd PT/OT evaluation/ LANI placement f/u with neurology, cardiology s/p av fistula placement on left fore arm yesterday, good bruit+ s/p hemodialysis today, had a uf about 1lit
[2018-08-28] MEDS: Pantoprazole 40 mg EC Tab PO SCH (14:25)
--- NOTE | 2018-08-28 16:56 | PN ---
DATE: 08/28/2018 SUBJECTIVE: The patient is currently undergoing hemodialysis. He underwent left forearm AV fistula placed yesterday. No chest pain or shortness of breath. PHYSICAL EXAMINATION: VITAL SIGNS: Blood pressure 147/77, heart rate 77, temperature 98, respirations 18. HEENT: Normocephalic. CHEST: Clear. HEART: S1 and S2 regular. EXTREMITIES: No edema. LABORATORY DATA: Today's hemoglobin, hematocrit 7.2 and 22.7, white count 3.8 ,platelet count 123,000. Today's SMA-7 is within normal limit except for glucose of 112 and creatinine 4.7. Yesterday's upper and lower endoscopies reveal duodenal ulcer, hiatus hernia, rectal polyp and spastic colon. Rectal polyp biopsy was performed. ASSESSMENT: 1. Paroxysmal atrial fibrillation. 2. End-stage renal disease, on hemodialysis. 3. Status post arteriovenous fistula placement. 4. 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 RECOMMENDATIONS: Continue Carafate 1 g twice a day, Eliquis 2.5 mg twice a day, Lopressor 5 mg twice a day, twice a day, Procrit 20,000 units TTS. Obtain 12-lead EKG postoperatively. Dav Hernandez MD
[2018-08-28] MEDS: Cefepime IV 1 gm in Dextrose 1 GM/50 ML BAG IVPB SCH (17:18)
--- NOTE | 2018-08-28 20:09 | CP.PCM.PN ---
Subjective - Date & Time of Evaluation Date of Evaluation: 08/28/18 Time of Evaluation: 09:00 - Subjective Subjective: clinically same Objective - Vital Signs/Intake and Output Vital Signs (last 24 hours): Temp Pulse Resp BP Pulse Ox 99.1 F 87 20 134/71 100 08/28/18 16:09 08/28/18 16:09 08/28/18 16:09 08/28/18 16:09 08/28/18 16:09 - Medications Medications: Current Medications Acetaminophen (Tylenol 325mg Tab) 650 mg PO Q6 PRN PRN Reason: pain, fever Last Admin: 08/21/18 04:14 Dose: 650 mg Apixaban (Eliquis) 2.5 mg PO BID [facility] Last Admin: 08/28/18 17:18 Dose: 2.5 mg Epoetin Dariel (Procrit) 20,000 unit IV TTS [facility] Last Admin: 08/28/18 12:19 Dose: 20,000 unit Cefepime HCl (Maxipime Iv 1 Gm Premix) 1 gm in 50 mls @ 100 mls/hr IVPB Q24H [facility]; Protocol Last Admin: 08/28/18 17:18 Dose: 100 mls/hr Lactated Ringer's (Lactated Ringer's) 1,000 mls @ 75 mls/hr IV .[id number] [facility] Last Admin: 08/28/18 16:04 Dose: Not Given Sodium Chloride (Sodium Chloride 0.9%) 1,000 mls @ 10 mls/hr IV .Q24H [facility] Metoprolol Tartrate (Lopressor) 50 mg PO BID [facility] Last Admin: 08/28/18 17:18 Dose: 50 mg Pantoprazole Sodium (Protonix Ec Tab) 40 mg PO DAILY [facility] Last Admin: 08/28/18 14:25 Dose: 40 mg Paricalcitol (Zemplar) 2 mcg IV TTS [facility] Sucralfate (Carafate Tab) 1 gm PO BID [facility] Last Admin: 08/28/18 17:18 Dose: 1 gm Temazepam (Restoril) 15 mg PO HS PRN PRN Reason: Sleep Last Admin: 08/22/18 22:09 Dose: 15 mg - Labs Labs: 08/28/18 10:13 08/28/18 10:13 PT 14.3 SECONDS (9.7-12.2) H 08/24/18 06:44 INR 1.3 08/24/18 06:44 APTT 33 SECONDS (21-34) 08/24/18 06:44 - Constitutional Appears: Well - Head Exam Head Exam: ATRAUMATIC, NORMAL INSPECTION, NORMOCEPHALIC - Eye Exam Eye Exam: EOMI, Normal appearance, PERRL Pupil Exam: NORMAL ACCOMODATION, PERRL - ENT Exam ENT Exam: Mucous Membranes Moist, Normal Exam - Neck Exam Neck Exam: Full ROM, Normal Inspection. absent: Lymphadenopathy - Respiratory Exam Respiratory Exam: Decreased Breath Sounds - Cardiovascular Exam Cardiovascular Exam: REGULAR RHYTHM, +S1, +S2 - GI/Abdominal Exam GI & Abdominal Exam: Soft, Diminished Bowel Sounds - Rectal Exam Rectal Exam: Deferred
[2018-08-28] MEDS ORDERED: Ferric Sodium Gluconat Complex 62.5 mg/5 ml Vial IVPB STA (21:33)
[2018-08-28] MEDS: Ferric Sodium Gluconat Complex 125 MG in Sodium Chloride 0.9% 100 ML IVPB SCH (21:55)
[2018-08-29] MEDS: Pantoprazole 40 mg EC Tab PO SCH (09:22)
[2018-08-29] MEDS: Ferric Sodium Gluconat Complex 125 MG in Sodium Chloride 0.9% 100 ML IVPB SCH (09:22)
[2018-08-29] MEDS ORDERED: Ferric Sodium Gluconat Complex 62.5 mg/5 ml Vial IVPB SCH (10:00)
--- NOTE | 2018-08-29 10:56 | CP.PCM.PN ---
Subjective - Date & Time of Evaluation Date of Evaluation: 08/29/18 Time of Evaluation: 07:30 - Subjective Subjective: Surgery Progress note. Dr. Frankel service. Pt seen and examined at bedside. No acute events overnight. No new complaints. No distal numbness or tingling noted. Pain well controlled. Objective - Vital Signs/Intake and Output Vital Signs (last 24 hours): Temp Pulse Resp BP Pulse Ox 98.3 F 107 H 20 119/78 97 08/28/18 23:30 08/29/18 09:21 08/28/18 23:30 08/29/18 09:21 08/28/18 23:30 Intake and Output: 08/29/18 08/29/18 06:59 18:59 Output Total 100 Balance -100 - Medications Medications: Current Medications Acetaminophen (Tylenol 325mg Tab) 650 mg PO Q6 PRN PRN Reason: pain, fever Last Admin: 08/21/18 04:14 Dose: 650 mg Apixaban (Eliquis) 2.5 mg PO BID [facility] Last Admin: 08/29/18 09:22 Dose: 2.5 mg Epoetin Dariel (Procrit) 20,000 unit IV TTS [facility] Last Admin: 08/28/18 12:19 Dose: 20,000 unit Cefepime HCl (Maxipime Iv 1 Gm Premix) 1 gm in 50 mls @ 100 mls/hr IVPB Q24H [facility]; Protocol Last Admin: 08/28/18 17:18 Dose: 100 mls/hr Lactated Ringer's (Lactated Ringer's) 1,000 mls @ 75 mls/hr IV .[id number] [facility] Last Admin: 08/28/18 16:04 Dose: Not Given Sodium Chloride (Sodium Chloride 0.9%) 1,000 mls @ 10 mls/hr IV .Q24H [facility] Ferric Sodium Gluconate Complex 125 mg/ Sodium Chloride 110 mls @ 100 mls/hr IVPB DAILY [facility] Stop: 09/05/18 22:01 Last Admin: 08/29/18 09:22 Dose: 100 mls/hr Metoprolol Tartrate (Lopressor) 50 mg PO BID [facility] Last Admin: 08/29/18 09:22 Dose: 50 mg Pantoprazole Sodium (Protonix Ec Tab) 40 mg PO DAILY [facility] Last Admin: 08/29/18 09:22 Dose: 40 mg Paricalcitol (Zemplar) 2 mcg IV TTS [facility] Sucralfate (Carafate Tab) 1 gm PO BID [facility] Last Admin: 08/29/18 09:22 Dose: 1 gm Temazepam (Restoril) 15 mg PO HS PRN PRN Reason: Sleep Last Admin: 08/22/18 22:09 Dose: 15 mg - Labs Labs: 08/28/18 10:13 08/28/18 10:13 PT 14.3 SECONDS (9.7-12.2) H 08/24/18 06:44 INR 1.3 08/24/18 06:44 APTT 33 SECONDS (21-34) 08/24/18 06:44 - Constitutional Appears: Well, Non-toxic, No Acute Distress - Head Exam Head Exam: ATRAUMATIC, NORMAL INSPECTION, NORMOCEPHALIC - Eye Exam Eye Exam: EOMI - ENT Exam ENT Exam: Mucous Membranes Moist - Respiratory Exam Respiratory Exam: NORMAL BREATHING PATTERN. absent: Accessory Muscle Use, Respiratory Distress - Cardiovascular Exam Cardiovascular Exam: absent: JVD - GI/Abdominal Exam GI & Abdominal Exam: Soft. absent: Distended, Tenderness, Rebound - Extremities Exam Extremities Exam: Normal Inspection Additional comments: left AVF dressing clean, dry and intact. +bruit - Neurological Exam Neurological Exam: Alert, Awake, Oriented x3 - Psychiatric Exam Psychiatric exam: Normal Affect, Normal Mood - Skin Skin Exam: Dry, Intact, Normal Color, Warm Assessment and Plan - Assessment and Plan (Free Text) Assessment: 73yo M s/p L AVF; POD 2 Plan: - Permacath use for HD. Awaiting AVF maturation - No further vascular surgery intervention warranted at this time - f/u with Dr. Frankel upon discharge Further recs as per Dr. Marlys Montiel PGY2 Surgery
--- NOTE | 2018-08-29 13:05 | CP.PCM.PN ---
Subjective - Date & Time of Evaluation Date of Evaluation: 08/29/18 Time of Evaluation: 10:15 - Subjective Subjective: clinically same Objective - Vital Signs/Intake and Output Vital Signs (last 24 hours): Temp Pulse Resp BP Pulse Ox 98.3 F 66 20 119/78 97 08/28/18 23:30 08/29/18 12:00 08/28/18 23:30 08/29/18 09:21 08/28/18 23:30 Intake and Output: 08/29/18 08/29/18 06:59 18:59 Output Total 100 Balance -100 - Medications Medications: Current Medications Acetaminophen (Tylenol 325mg Tab) 650 mg PO Q6 PRN PRN Reason: pain, fever Last Admin: 08/21/18 04:14 Dose: 650 mg Apixaban (Eliquis) 2.5 mg PO BID [facility] Last Admin: 08/29/18 09:22 Dose: 2.5 mg Diltiazem HCl (Cardizem) 30 mg PO QID [facility] Epoetin Dariel (Procrit) 20,000 unit IV TTS [facility] Last Admin: 08/28/18 12:19 Dose: 20,000 unit Cefepime HCl (Maxipime Iv 1 Gm Premix) 1 gm in 50 mls @ 100 mls/hr IVPB Q24H [facility]; Protocol Last Admin: 08/28/18 17:18 Dose: 100 mls/hr Lactated Ringer's (Lactated Ringer's) 1,000 mls @ 75 mls/hr IV .[id number] [facility] Last Admin: 08/28/18 16:04 Dose: Not Given Sodium Chloride (Sodium Chloride 0.9%) 1,000 mls @ 10 mls/hr IV .Q24H [facility] Ferric Sodium Gluconate Complex 125 mg/ Sodium Chloride 110 mls @ 100 mls/hr IVPB DAILY [facility] Stop: 09/05/18 22:01 Last Admin: 08/29/18 09:22 Dose: 100 mls/hr Metoprolol Tartrate (Lopressor) 50 mg PO BID [facility] Last Admin: 08/29/18 09:22 Dose: 50 mg Pantoprazole Sodium (Protonix Ec Tab) 40 mg PO DAILY [facility] Last Admin: 08/29/18 09:22 Dose: 40 mg Paricalcitol (Zemplar) 2 mcg IV TTS [facility] Sucralfate (Carafate Tab) 1 gm PO BID [facility] Last Admin: 08/29/18 09:22 Dose: 1 gm Temazepam (Restoril) 15 mg PO HS PRN PRN Reason: Sleep Last Admin: 08/22/18 22:09 Dose: 15 mg - Labs Labs: 08/28/18 10:13 08/28/18 10:13 PT 14.3 SECONDS (9.7-12.2) H 08/24/18 06:44 INR 1.3 08/24/18 06:44 APTT 33 SECONDS (21-34) 08/24/18 06:44 - Constitutional Appears: Well - Head Exam Head Exam: ATRAUMATIC, NORMAL INSPECTION, NORMOCEPHALIC - Eye Exam Eye Exam: EOMI, Normal appearance, PERRL Pupil Exam: NORMAL ACCOMODATION, PERRL - ENT Exam ENT Exam: Mucous Membranes Moist, Normal Exam - Neck Exam Neck Exam: Full ROM, Normal Inspection. absent: Lymphadenopathy - Respiratory Exam Respiratory Exam: Decreased Breath Sounds - Cardiovascular Exam Cardiovascular Exam: REGULAR RHYTHM, +S1, +S2 - GI/Abdominal Exam GI & Abdominal Exam: Soft, Diminished Bowel Sounds - Rectal Exam Rectal Exam: Deferred
[2018-08-29] MEDS: Lactated Ringer's 1,000 ML IV SCH ×2 (13:27→19:01)
--- NOTE | 2018-08-29 14:29 | CP.PCM.PN ---
Subjective - Date & Time of Evaluation Date of Evaluation: 08/29/18 Time of Evaluation: 14:29 - Subjective Subjective: follow up consult is dictated #[id number] Objective - Vital Signs/Intake and Output Vital Signs (last 24 hours): Temp Pulse Resp BP Pulse Ox 98.3 F 69 20 123/69 97 08/28/18 23:30 08/29/18 13:29 08/28/18 23:30 08/29/18 13:29 08/28/18 23:30 Intake and Output: 08/29/18 08/29/18 06:59 18:59 Intake Total 1000 Output Total 100 Balance -100 1000 - Medications Medications: Current Medications Acetaminophen (Tylenol 325mg Tab) 650 mg PO Q6 PRN PRN Reason: pain, fever Last Admin: 08/21/18 04:14 Dose: 650 mg Apixaban (Eliquis) 2.5 mg PO BID [facility] Last Admin: 08/29/18 09:22 Dose: 2.5 mg Diltiazem HCl (Cardizem) 30 mg PO QID [facility] Last Admin: 08/29/18 13:29 Dose: 30 mg Epoetin Dariel (Procrit) 20,000 unit IV TTS [facility] Last Admin: 08/28/18 12:19 Dose: 20,000 unit Cefepime HCl (Maxipime Iv 1 Gm Premix) 1 gm in 50 mls @ 100 mls/hr IVPB Q24H [facility]; Protocol Last Admin: 08/28/18 17:18 Dose: 100 mls/hr Lactated Ringer's (Lactated Ringer's) 1,000 mls @ 75 mls/hr IV .[id number] [facility] Last Admin: 08/29/18 13:27 Dose: 75 mls/hr Sodium Chloride (Sodium Chloride 0.9%) 1,000 mls @ 10 mls/hr IV .Q24H [facility] Sodium Gluconate Complex 125 mg/ Sodium Chloride 110 mls @ 100 mls/hr IVPB DAILY [facility] Stop: 09/05/18 22:01 Last Admin: 08/29/18 09:22 Dose: 100 mls/hr Metoprolol Tartrate (Lopressor) 50 mg PO BID [facility] Last Admin: 08/29/18 09:22 Dose: 50 mg Pantoprazole Sodium (Protonix Ec Tab) 40 mg PO DAILY [facility] Last Admin: 08/29/18 09:22 Dose: 40 mg Paricalcitol (Zemplar) 2 mcg IV TTS [facility] Sucralfate (Carafate Tab) 1 gm PO BID [facility] Last Admin: 08/29/18 09:22 Dose: 1 gm Temazepam (Restoril) 15 mg PO HS PRN PRN Reason: Sleep Last Admin: 08/22/18 22:09 Dose: 15 mg - Labs Labs: 08/28/18 10:13 08/28/18 10:13 PT 14.3 SECONDS (9.7-12.2) H 08/24/18 06:44 INR 1.3 08/24/18 06:44 APTT 33 SECONDS (21-34) 08/24/18 06:44
--- NOTE | 2018-08-29 16:07 | PN ---
DATE: 08/29/2018 SUBJECTIVE: The patient developed an episode of rapid atrial fibrillation, received Cardizem at 10 mg IV push and so he finally converted to sinus rhythm. An EKG done while the patient was in AFib, which revealed rapid AFib with PVCs versus aberrancy. The patient did report palpitation, but denies any dizziness or chest pain. PHYSICAL EXAMINATION: VITAL SIGNS: Blood pressure 119/58, heart rate 107, temperature 98.3. HEENT: Pale conjunctivae. CHEST: Clear. HEART: S1 and S2 regular. EXTREMITIES: No edema. ASSESSMENT: 1. Paroxysmal atrial fibrillation. 2. Anemia. 3. End-stage renal disease, on hemodialysis. 4. Multiple bilateral basal ganglia lacunar infarcts as well as brain stem lacunar infarcts. RECOMMENDATIONS: Continue Eliquis 12.5 mg twice a day, Lopressor 50 mg once a day, an oral dose of Cardizem at 60 mg was given now and I will start Cardizem at 30 mg p.o. four times a day. Dav Hernandez MD
[2018-08-29] MEDS: Cefepime IV 1 gm in Dextrose 1 GM/50 ML BAG IVPB SCH (18:00)
--- NOTE | 2018-08-30 03:04 | PN ---
DATE: 08/29/2018 HISTORY OF PRESENT ILLNESS: Mr. Baptiste is a 73-year-old elderly -[place] male with history of longstanding hypertension, chronic kidney disease, prostate CA who was admitted with UTI and gram-negative sepsis with severe altered mental status and very high BUN and creatinine requiring initiation of the hemodialysis. The patient had hemodialysis 3 times a week; Thursday, Thursday, Thursday. The patient is feeling much better status post left forearm AV fistula placement on Thursday. The patient is not in distress and no chest pain, no palpitation, no fever, no cough, no abdominal pain. No nausea, vomiting, or diarrhea. The patient also developed paroxysmal AFib in ICU and also found to have multiple lacunar infarcts also. PHYSICAL EXAMINATION: GENERAL: Mr. Baptiste is a 73-year-old elderly -[place] male with history of longstanding hypertension and Moderate built, moderate nourished, not in acute distress. VITAL SIGNS: As follows, blood pressure 145/70, pulse 74, respirations 20, temperature 98.1, saturation 98%. Height 5 feet 10 inches, weight is 144 pounds. HEENT: Pupils normal and reactive to light and accommodation. Conjunctivae pink. Sclerae anicteric. Tongue is moist and trachea is midline. LUNGS: Symmetric on both sides. Bilateral breath sounds present. Clear to auscultation. CVS: [place] at the fifth intercostal space, midclavicular line. S1, S2 audible. Occasionally irregularly irregular. ABDOMEN: Normal in appearance, soft, tympanic. No guarding. No hepatosplenomegaly. [employer] FO[employer] DEPARTMENT MANAGER: The patient is alert, awake, oriented x 2 to 3. Sensory and motor system is grossly within normal limits. EXTREMITIES: No cyanosis, no clubbing, no edema. CURRENT MEDICATIONS: Include as follows: Carafate 1 g p.o. b.i.d., Cardizem 30 mg p.o. q.i.d. and Eliquis 2.5 mg p.o. b.i.d., metoprolol 50 mg p.o. b.i.d. and cefepime 1 g q.24 hours and Procrit 20,000 units 3 times a week and Protonix 40 mg p.o. daily and Tylenol 650 mg p.o. q.6 hours p.r.n. and Zemplar 2 mcg 3 times a week. His lab data include as follows as of 08/28/2018, WBC 3.8, hemoglobin , hematocrit is 22.7, MCV 66 and platelets 223,000 and sodium 136, potassium 3.9, chloride 102, CO2 27, BUN 20, creatinine 4.7, glucose 112 and calcium is 6.9 and iron 25, TIBC 187 and saturation of 14 and ferritin is 324. ASSESSMENT AND PLAN: In summary, Mr. Baptiste is a 73-year-old elderly -[place] male with history of longstanding hypertension, prostate carcinoma, chronic kidney disease with a baseline creatinine of was admitted with altered mental status, BUN more than 200 and requiring initiation of hemodialysis. The patient was found to have gram-negative sepsis and also UTI with E-coli also status post paroxysmal atrial fibrillation and also MRI consistent with lacunar infarcts. 1. Acute renal failure on chronic kidney disease versus end-stage renal disease. 2. Hypertension. 3. Cerebrovascular accident. 4. Paroxysmal atrial fibrillation. 5. Anemia. 6. Secondary hyperparathyroidism. PLAN: Continue his current medications, diltiazem and metoprolol. Blood pressure is under control and heart rate is under control. Continue Epogen 3 times a week and also continue Ferrlecit 125 mg daily total 8 doses and also GI prophylaxis. Continue Zemplar 2 mcg 3 times a week, adjust Maxipime for creatinine clearance less than 10 mL/minute, most likely needs to decrease to 500 mg q.24h. If okay to ID, we will continue dialysis 3 times a week, Thursday, , Thursday. We will follow with you. Thank you for allowing me to participate in your patient's care. Reyna Key MD
[2018-08-30] MEDS: Lactated Ringer's 1,000 ML IV SCH (05:35)
--- NOTE | 2018-08-30 09:52 | CARD ---
APPROVED REPORT Date of service: 08/29/2018 EKG Measurement Heart [id number] <Conclusion> Accelerated Junctional rhythm with frequent premature ventricular complexes Possible Anterior infarct, age undetermined ST & T wave abnormality, consider inferolateral ischemia Abnormal ECG
[2018-08-30] MEDS: Pantoprazole 40 mg EC Tab PO SCH (10:34)
[2018-08-30] MEDS: Ferric Sodium Gluconat Complex 125 MG in Sodium Chloride 0.9% 100 ML IVPB SCH (11:00)
--- NOTE | 2018-08-30 12:39 | CP.PCM.PN ---
Subjective - Date & Time of Evaluation Date of Evaluation: 08/30/18 Time of Evaluation: 12:39 - Subjective Subjective: pt is seen and examined, follow up consult is dictated #[id number] Objective - Vital Signs/Intake and Output Vital Signs (last 24 hours): Temp Pulse Resp BP Pulse Ox 98.2 F 74 18 151/83 H 97 08/30/18 07:05 08/30/18 07:05 08/30/18 07:05 08/30/18 07:05 08/30/18 07:05 Intake and Output: 08/30/18 08/30/18 06:59 18:59 Intake Total 810 Output Total 950 Balance -140 - Medications Medications: Current Medications Acetaminophen (Tylenol 325mg Tab) 650 mg PO Q6 PRN PRN Reason: pain, fever Last Admin: 08/21/18 04:14 Dose: 650 mg Apixaban (Eliquis) 2.5 mg PO BID [facility] Last Admin: 08/30/18 10:34 Dose: 2.5 mg Diltiazem HCl (Cardizem) 30 mg PO QID [facility] Last Admin: 08/30/18 10:34 Dose: 30 mg Epoetin Dariel (Procrit) 20,000 unit IV TTS [facility] Last Admin: 08/28/18 12:19 Dose: 20,000 unit Cefepime HCl (Maxipime Iv 1 Gm Premix) 1 gm in 50 mls @ 100 mls/hr IVPB Q24H [facility]; Protocol Last Admin: 08/29/18 18:00 Dose: 100 mls/hr Sodium Chloride (Sodium Chloride 0.9%) 1,000 mls @ 10 mls/hr IV .Q24H [facility] Ferric Sodium Gluconate Complex 125 mg/ Sodium Chloride 110 mls @ 100 mls/hr IVPB DAILY [facility] Stop: 09/05/18 22:01 Last Admin: 08/30/18 11:00 Dose: 100 mls/hr Metoprolol Tartrate (Lopressor) 50 mg PO BID [facility] Last Admin: 08/30/18 10:50 Dose: 50 mg Pantoprazole Sodium (Protonix Ec Tab) 40 mg PO DAILY [facility] Last Admin: 08/30/18 10:34 Dose: 40 mg Paricalcitol (Zemplar) 2 mcg IV TTS [facility] Sucralfate (Carafate Tab) 1 gm PO BID [facility] Last Admin: 08/30/18 10:34 Dose: 1 gm - Labs Labs: 08/28/18 10:13 08/28/18 10:13 PT 14.3 SECONDS (9.7-12.2) H 08/24/18 06:44 INR 1.3 08/24/18 06:44 APTT 33 SECONDS (21-34) 08/24/18 06:44
--- NOTE | 2018-08-30 14:26 | CP.PCM.PN ---
Subjective - Date & Time of Evaluation Date of Evaluation: 08/30/18 Time of Evaluation: 10:00 - Subjective Subjective: clinically same Objective - Vital Signs/Intake and Output Vital Signs (last 24 hours): Temp Pulse Resp BP Pulse Ox 98.2 F 74 18 151/83 H 97 08/30/18 07:05 08/30/18 07:05 08/30/18 07:05 08/30/18 07:05 08/30/18 07:05 Intake and Output: 08/30/18 08/30/18 06:59 18:59 Intake Total 810 Output Total 950 Balance -140 - Medications Medications: Current Medications Acetaminophen (Tylenol 325mg Tab) 650 mg PO Q6 PRN PRN Reason: pain, fever Last Admin: 08/21/18 04:14 Dose: 650 mg Apixaban (Eliquis) 2.5 mg PO BID [facility] Last Admin: 08/30/18 10:34 Dose: 2.5 mg Diltiazem HCl (Cardizem) 30 mg PO QID [facility] Last Admin: 08/30/18 10:34 Dose: 30 mg Epoetin Dariel (Procrit) 20,000 unit IV TTS [facility] Last Admin: 08/28/18 12:19 Dose: 20,000 unit Cefepime HCl (Maxipime Iv 1 Gm Premix) 1 gm in 50 mls @ 100 mls/hr IVPB Q24H [facility]; Protocol Last Admin: 08/29/18 18:00 Dose: 100 mls/hr Ferric Sodium Gluconate Complex 125 mg/ Sodium Chloride 110 mls @ 100 mls/hr IVPB DAILY [facility] Stop: 09/05/18 22:01 Last Admin: 08/30/18 11:00 Dose: 100 mls/hr Metoprolol Tartrate (Lopressor) 50 mg PO BID [facility] Last Admin: 08/30/18 10:50 Dose: 50 mg Pantoprazole Sodium (Protonix Ec Tab) 40 mg PO DAILY [facility] Last Admin: 08/30/18 10:34 Dose: 40 mg Paricalcitol (Zemplar) 2 mcg IV TTS [facility] Sucralfate (Carafate Tab) 1 gm PO BID [facility] Last Admin: 08/30/18 10:34 Dose: 1 gm - Labs Labs: 08/28/18 10:13 08/28/18 10:13 PT 14.3 SECONDS (9.7-12.2) H 08/24/18 06:44 INR 1.3 08/24/18 06:44 APTT 33 SECONDS (21-34) 08/24/18 06:44 - Constitutional Appears: Well - Head Exam Head Exam: ATRAUMATIC, NORMAL INSPECTION, NORMOCEPHALIC - Eye Exam Eye Exam: EOMI, Normal appearance, PERRL Pupil Exam: NORMAL ACCOMODATION, PERRL - ENT Exam ENT Exam: Mucous Membranes Moist, Normal Exam - Neck Exam Neck Exam: Full ROM, Normal Inspection. absent: Lymphadenopathy - Respiratory Exam Respiratory Exam: Decreased Breath Sounds - Cardiovascular Exam Cardiovascular Exam: REGULAR RHYTHM, +S1, +S2 - GI/Abdominal Exam GI & Abdominal Exam: Soft, Diminished Bowel Sounds - Rectal Exam Rectal Exam: Deferred
--- NOTE | 2018-08-30 14:55 | PN ---
DATE: 08/30/2018 SUBJECTIVE: The patient feels slightly chilly. He denies any chest pain. No reported paroxysmal atrial fibrillation today. PHYSICAL EXAMINATION: VITAL SIGNS: Blood pressure 151/83, heart rate 74, temperature 98.2, respirations 18. HEENT: Pale conjunctivae. CHEST: Clear. HEART: S1 and S2 regular. EXTREMITIES: No edema. ASSESSMENT: 1. Paroxysmal atrial fibrillation. 2. End-stage renal disease, on hemodialysis. 3. Status post left forearm arteriovenous fistula placement. 4. Multiple lacunar infarcts in both basal ganglia and brain stem. RECOMMENDATIONS: Continue Cardizem at 80 mg, Eliquis 2.5 mg twice a day, continue ferrous gluconate infusion, continue Lopressor 50 mg twice a day, Maxipime at 1 g daily. Dav Hernandez MD
[2018-08-30 17:02] VITALS: BP 158/82; RESP 20; TEMP 98.4; O2SAT 100
[2018-08-30] MEDS: Cefepime IV 1 gm in Dextrose 1 GM/50 ML BAG IVPB SCH (17:28)
--- NOTE | 2018-08-30 18:17 | CP.PCM.PN ---
Subjective - Date & Time of Evaluation Date of Evaluation: 08/30/18 Time of Evaluation: 11:00 - Subjective Subjective: alert, awake, no sob or chest pains, NAD. Objective - Vital Signs/Intake and Output Vital Signs (last 24 hours): Temp Pulse Resp BP Pulse Ox 98.4 F 70 20 158/82 H 100 08/30/18 15:00 08/30/18 15:00 08/30/18 15:00 08/30/18 15:00 08/30/18 15:00 Intake and Output: 08/30/18 08/30/18 06:59 18:59 Intake Total 810 Output Total 950 Balance -140 - Medications Medications: Current Medications Acetaminophen (Tylenol 325mg Tab) 650 mg PO Q6 PRN PRN Reason: pain, fever Last Admin: 08/21/18 04:14 Dose: 650 mg Apixaban (Eliquis) 2.5 mg PO BID [facility] Last Admin: 08/30/18 17:29 Dose: 2.5 mg Diltiazem HCl (Cardizem) 30 mg PO QID [facility] Last Admin: 08/30/18 17:29 Dose: 30 mg Epoetin Dariel (Procrit) 20,000 unit IV TTS [facility] Last Admin: 08/28/18 12:19 Dose: 20,000 unit Cefepime HCl (Maxipime Iv 1 Gm Premix) 1 gm in 50 mls @ 100 mls/hr IVPB Q24H [facility]; Protocol Last Admin: 08/30/18 17:28 Dose: 100 mls/hr Ferric Sodium Gluconate Complex 125 mg/ Sodium Chloride 110 mls @ 100 mls/hr IVPB DAILY [facility] Stop: 09/05/18 22:01 Last Admin: 08/30/18 11:00 Dose: 100 mls/hr Metoprolol Tartrate (Lopressor) 50 mg PO BID [facility] Last Admin: 08/30/18 17:29 Dose: 50 mg Pantoprazole Sodium (Protonix Ec Tab) 40 mg PO DAILY [facility] Last Admin: 08/30/18 10:34 Dose: 40 mg Paricalcitol (Zemplar) 2 mcg IV TTS [facility] Sucralfate (Carafate Tab) 1 gm PO BID [facility] Last Admin: 08/30/18 17:29 Dose: 1 gm - Labs Labs: 08/28/18 10:13 08/28/18 10:13 PT 14.3 SECONDS (9.7-12.2) H 08/24/18 06:44 INR 1.3 08/24/18 06:44 APTT 33 SECONDS (21-34) 08/24/18 06:44 Assessment and Plan - Assessment and Plan (Free Text) Assessment: 73 year old male seen and examined after dialysis today. Alert and oriented x3, no acute distress. Cleared by DR Brown for discharge without antibiotics since patient had 2 weeks of iv antibiotics already. Discussed with Deni Crespo, plan to discharge to [facility] for rehab.
[2018-08-30 19:07] VITALS: PULSE 69
--- NOTE | 2018-08-31 01:54 | PN ---
DATE: 08/30/2018 LOCATION: The patient is located in 656, bed B. REQUESTED BY: Dr. Merry Crespo REASON FOR RENAL CONSULTATION: End-stage renal disease, for continuation of hemodialysis, SUBJECTIVE: Mr. Baptiste is 73-year-old elderly male with a past medical history significant for longstanding hypertension, chronic kidney disease, prostate CA was admitted with altered mental status and uremia and fever and found to have gram-negative sepsis and also UTI. The patient was started on hemodialysis three times a week since admission. The patient also underwent left forearm AV fistula even snuffbox. The patient denies any headache or dizziness. Denies any chest pain or palpitation. Denies any fever or cough. No abdominal pain. No nausea, vomiting, or diarrhea. PHYSICAL EXAMINATION: VITAL SIGNS: Blood pressure 151/83, pulse 74, respirations 18, temperature 98.2, saturation 97%, height 5 feet 10 inches, weight is 144 pounds. GENERAL: Mr. Baptiste is a 73-year-old elderly male, moderately built, moderately nourished, not in distress. HEENT: Pupils normal, reactive to light and accommodation. Conjunctivae pink. Sclerae anicteric. Tongue is moist. Trachea is midline. LUNGS: Symmetric on both sides. Bilateral breath sounds present. Clear to auscultation. CVS: [place] at the fifth intercostal space, midclavicular area. S1 and S2 audibile. Occasionally irregularly irregular. ABDOMEN: Normal in appearance. Soft, tympanic. No guarding. No hepatosplenomegaly. SOCIAL SERVICES MANAGER: The patient is alert, awake, oriented x2-3. Sensory and motor system is grossly within normal limits. EXTREMITIES: No cyanosis, clubbing or edema. CURRENT MEDICATIONS: Include as follows, Tylenol 325 mg 2 tablets p.o. every 5 hours p.r.n., Eliquis 2.5 mg p.o. b.i.d., Cardizem 30 mg p.o. q.i.d., Procrit 20,000 three times a week, cefepime 1 g every 24 hours, Ferrlecit 125 mg everyday, metoprolol 50 mg p.o. b.i.d., Protonix 40 mg p.o. daily, Zemplar 2 mcg and Carafate 1 g p.o. b.i.dPedro LABORATORY DATA: His lab data include as follows as of 08/28/2018, WBC 3.8, hemoglobin 7.8, hematocrit is 22.7, platelets 223. Sodium 136, potassium 3.9, chloride 102, CO2 27, BUN 20, creatinine 4.7 glucose 112 and calcium is 6.9. ASSESSMENT AND PLAN: In summary, Mr. Baptiste is a 73-year-old male with hypertension, prostate CA, chronic kidney disease with a baseline creatinine of 2 to 2.5, was admitted with urosepsis and also with uremic symptoms, altered mental status and started on hemodialysis. 1. Renal failure, most likely acute on chronic kidney disease, cannot rule out progression of CKD to end-stage renal disease. 2. Hypertension. 3. Paroxysmal atrial fibrillation. 4. Cerebrovascular accident. 5. Anemia secondary to renal failure. 6. Secondary hyperparathyroidism. PLAN: Continue hemodialysis three times a week Thursday, , Thursday until renal function improves. If renal function does not improve, the patient needs to continue three times a week for a long time, continue his current medication. Continue Procrit. Continue Ferrlecit. Continue antibiotics as per ID recommendation. We will follow with you. Thank you for allowing me to participate in your patient's care. The patient is stable from the renal standpoint for possible transfer to subacute rehab for physical therapy. Case discussed with the community case manager in rounds Reyna Key MD
[2018-08-31] MEDS ORDERED: Paricalcitol 2 mcg/ml Inj IV SCH (10:00)
--- NOTE | 2018-08-31 19:03 | CARD ---
APPROVED REPORT Date of service: 08/28/2018 EKG Measurement Heart [id number] <Conclusion> Sinus tachycardia with premature atrial complexes Cannot rule out Anterior infarct, age undetermined Abnormal ECG
--- NOTE | 2018-09-03 01:21 | OP ---
PROCEDURE DATE: 08/27/2018 PREOPERATIVE DIAGNOSIS: Renal failure. POSTOPERATIVE DIAGNOSIS: Renal failure. PROCEDURE CARRIED OUT: Snuffbox fistula, left wrist. SURGEON: Sebastian Frankel Jr., MD TYPE OF ANESTHESIA: General anesthesia by the staff anesthesiologist. OPERATIVE FINDINGS: The vein and artery are of adequate size and snuffbox fistula was created. DESCRIPTION OF PROCEDURE: Vein mapping was carried out. The vein was identified. The ____ artery was identified. An end of cephalic vein to side of branch of radial artery fistula was then carried out to wrist using loupe magnification and heparin anticoagulation with loop control of the vessels. After this had been done, we had an excellent flow to the fistula. We then removed the controlling devices and inspected for hemostasis. Inspected again for hemostasis and then we closed the wounds with Monocryl and nylon sutures. ESTIMATED BLOOD LOSS: Less than 100 mL. OPERATION CARRIED OUT: Snuffbox fistula, left wrist. Sebastian Frankel Jr., MD
== END 2018-08-30 19:47 | DRG 871 ==
LOC: C.ER 18:26 → C.9E 23:00 → C.9I 23:10 → C.3T 08-16 12:40 → C.6T 08-19 11:48
PROVIDERS: ADMIT Internal Medicine Nephrology; ATTEND Internal Medicine Nephrology
PROC: 5A1D70Z Performance of Urinary Filtration, Intermittent, Less than 6 Hours Per Day (ICD-10-PCS; 2018-08-12)
PROC: 5A1D70Z Performance of Urinary Filtration, Intermittent, Less than 6 Hours Per Day (ICD-10-PCS; 2018-08-13)
PROC: 5A1D70Z Performance of Urinary Filtration, Intermittent, Less than 6 Hours Per Day (ICD-10-PCS; 2018-08-14)
PROC: 5A1D70Z Performance of Urinary Filtration, Intermittent, Less than 6 Hours Per Day (ICD-10-PCS; 2018-08-17)
PROC: 05HP33Z Insertion of Infusion Device into Right External Jugular Vein, Percutaneous Approach (ICD-10-PCS; 2018-08-18)
PROC: 5A1D70Z Performance of Urinary Filtration, Intermittent, Less than 6 Hours Per Day (ICD-10-PCS; 2018-08-19)
PROC: 5A1D70Z Performance of Urinary Filtration, Intermittent, Less than 6 Hours Per Day (ICD-10-PCS; 2018-08-21)
PROC: 5A1D70Z Performance of Urinary Filtration, Intermittent, Less than 6 Hours Per Day (ICD-10-PCS; 2018-08-24)
PROC: 5A1D70Z Performance of Urinary Filtration, Intermittent, Less than 6 Hours Per Day (ICD-10-PCS; 2018-08-26)
PROC: 0DB68ZX Excision of Stomach, Via Natural or Artificial Opening Endoscopic, Diagnostic (ICD-10-PCS; principal; 2018-08-26 13:40)
PROC: 0DBP8ZX Excision of Rectum, Via Natural or Artificial Opening Endoscopic, Diagnostic (ICD-10-PCS; 2018-08-26 13:40)
PROC: 0JHH3WZ Insertion of Totally Implantable Vascular Access Device into Left Lower Arm Subcutaneous Tissue and Fascia, Percutaneous Approach (ICD-10-PCS; 2018-08-27)
PROC: 5A1D70Z Performance of Urinary Filtration, Intermittent, Less than 6 Hours Per Day (ICD-10-PCS; 2018-08-28)
DX: A41.50 Gram-negative sepsis, unspecified (principal); N18.6 End stage renal disease; E87.2 Acidosis; I12.0 Hypertensive chronic kidney disease with stage 5 chronic kidney disease or end stage renal disease; I47.1 Supraventricular tachycardia; N17.9 Acute kidney failure, unspecified; N25.81 Secondary hyperparathyroidism of renal origin; N39.0 Urinary tract infection, site not specified; I48.92 Unspecified atrial flutter; R47.01 Aphasia; J90 Pleural effusion, not elsewhere classified; B96.20 Unspecified Escherichia coli [E. coli] as the cause of diseases classified elsewhere; E86.0 Dehydration; E86.1 Hypovolemia; E87.5 Hyperkalemia; I48.0 Paroxysmal atrial fibrillation; Z85.46 Personal history of malignant neoplasm of prostate; Z99.2 Dependence on renal dialysis; D63.1 Anemia in chronic kidney disease; K26.9 Duodenal ulcer, unspecified as acute or chronic, without hemorrhage or perforation; K44.9 Diaphragmatic hernia without obstruction or gangrene; K29.70 Gastritis, unspecified, without bleeding; K62.1 Rectal polyp; K58.9 Irritable bowel syndrome, unspecified

== ENCOUNTER 2018-10-13 13:38 | Outpatient (CLI) | payer MEDICARE, MEDICAID | END 2018-10-13 13:39 | disposition home or self-care (01) | LOC: C.PAT 13:38 | DX: Z01.818 Encounter for other preprocedural examination (principal) ==

== ENCOUNTER 2018-10-20 08:45 | Day surgery (SDC) | payer MEDICARE, MEDICAID ==
[2018-10-13 14:15] VITALS: BMI 22.2
[2018-10-20] MEDS ORDERED: HEPARIN-NS 5,000 UNITS/500 ML 5,000 UNIT/500 ML BAG IV ONE (10:37)
[2018-10-20] MEDS ORDERED: ceFAZolin 1 gm in NS 1 GM/100 ML BAG IVPB ONE (10:37)
[2018-10-20] MEDS ORDERED: Iohexol 240 200 ML ONE (10:37)
[2018-10-20 10:44] LABS: CALCIUM 8.8 mg/dl (8.6-10.4)
[2018-10-20] MEDS ORDERED: Midazolam 2 MG/2 ML VIAL ONE (11:42)
[2018-10-20] MEDS ORDERED: Propofol 10 mg/ml Inj (20 ML) ONE (11:43)
[2018-10-20] MEDS ORDERED: Lidocaine Hydrochloride 20 ML INJ ONE (11:58)
--- NOTE | 2018-10-20 12:37 | PCM.SURG1 ---
Surgeon's Initial Post Op Note - Surgeon's Notes Surgeon: Dr. Frankel Assistant To The Director: Tiana CANTU Type of Anesthesia: IV Sedation, Local Anesthesia Administered By: Dr. Lay Pre-Operative Diagnosis: Unmature Left Snuff Box AV Fistula Operative Findings: See operative report. No central venous stenosis. Good arterial anastamosis. Extensive venous branches. Will need new access Post-Operative Diagnosis: Same Operation Performed: Left snuff box AVF fistulogram Specimen/Specimens Removed: none Estimated Blood Loss: EBL {In ML}: 5 Blood Products Given: N/A Drains Used: No Drains Post-Op Condition: Fair Date of Surgery/Procedure: 10/20/18 Time of Surgery/Procedure: 12:38
[2018-10-20 12:59] VITALS: O2SAT 100
[2018-10-20 14:09] VITALS: RESP 16
[2018-10-20 15:07] VITALS: BP 115/57; PULSE 59; TEMP 97.8
--- NOTE | 2018-10-20 17:27 | RAD ---
Date of service: 10/20/2018 PROCEDURE: Intraoperative fluoroscopy HISTORY: RENAL FAILURE COMPARISON: Not available TECHNIQUE: Intraoperative fluoroscopy was provided for left arm fistulagram road mapping. Total time of fluoroscopy was 91.4 sec. Cumulative dose was 7.96 mGy. FINDINGS: Multiple fluoroscopic spot films are submitted IMPRESSION: Fluoroscopy provided.
--- NOTE | 2018-10-20 21:41 | OP ---
PROCEDURE DATE: 10/20/2018 PREOPERATIVE DIAGNOSIS: Immature fistula, left arm. POSTOPERATIVE DIAGNOSIS: Immature fistula, left arm. PROCEDURE CARRIED OUT: Fistulogram, left arm. SURGEON: Sebastian Frankel Jr., MD MECHANICAL ENGINEERING OFFICER: Zen Montiel DO ANESTHESIOLOGIST: Vikash Lay DO TYPE OF ANESTHESIA: Local with sedation. INDICATIONS: A 73-year-old man with renal insufficiency and fistula created 3 months ago, this has not matured adequately for use. DESCRIPTION OF PROCEDURE: Using micropuncture technique and ultrasound guidance, the access was punctured adjacent to the arterial anastomosis. This showed that there was no evidence of perianastomotic stenosis. However, there were large host of tributary veins coming off the cephalic vein. 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 Consideration was given to ligating additional branches, but I felt that this would be futile, and I think it will be better if we simply create a fistula in other location in the future. The procedure was then stopped. Pressure was applied to the puncture site. There was extravasation of approximately 3 mL in the perifistular spaces at the completion of the procedure. The operation carried out was fistulogram, left arm. No intervention undertaken. Ultrasound guidance was used, and it showed that the vein was approximately 5 mm in diameter with normal compressibility and no intraluminal thrombosis. Plan will be to create a new access in the left arm in the near future. Sebastian Frankel Jr., MD cc: Dr. Key. Maximilian Chery MD
== END 2018-10-20 15:07 | disposition home or self-care (01) ==
LOC: C.SDS 08:45
PROVIDERS: ATTEND Surgery Vascular Surgery
DX: T82.898A Other specified complication of vascular prosthetic devices, implants and grafts, initial encounter (principal); I87.1 Compression of vein; I12.0 Hypertensive chronic kidney disease with stage 5 chronic kidney disease or end stage renal disease; N18.6 End stage renal disease; Z99.2 Dependence on renal dialysis; I48.91 Unspecified atrial fibrillation; Z79.01 Long term (current) use of anticoagulants; Z85.46 Personal history of malignant neoplasm of prostate; Z92.21 Personal history of antineoplastic chemotherapy; Z92.3 Personal history of irradiation; Z79.899 Other long term (current) drug therapy; Y84.1 Kidney dialysis as the cause of abnormal reaction of the patient, or of later complication, without mention of misadventure at the time of the procedure
CPT/HCPCS: 36415; 36901; 76000; 80048; J0690; J2250; J2704; J3010

== ENCOUNTER 2019-01-13 10:43 | Outpatient (CLI) | payer MEDICARE, MEDICAID | END 2019-01-13 10:44 | disposition home or self-care (01) | LOC: C.USIC 10:44 ==